=== PATIENT | male | born 1970 | race Caucasian/White ===

== ENCOUNTER 2016-05-03 08:34 | Inpatient (IN) | payer BC ==
[2016-05-03] VITALS (34 sets, daily range): BP systolic 75–213; BP diastolic 41–137; PULSE 96–151; TEMP 36.9; O2SAT 95–100; Ht 175.3 cm; Wt 116.5 kg
[~2016-05-03] VITALS: Ht 175.3 cm; Wt 116.5 kg
[2016-05-03] MEDS ORDERED: MoRPHine SULFATE 10 MG/ML CARP/VIAL IV STA (08:57)
[2016-05-03] MEDS: ONDANSETRON INJ 2 MG/ML 2 ML VIAL IV STA ×2 (08:57→09:18)
[2016-05-03] MEDS ORDERED: SODIUM CHLORIDE 0.9% 1000ML 1,000 ML IV STA (08:57)
--- NOTE | 2016-05-03 09:00 | EMERGENCY ROOM VISIT NOTE ---
History Report prepared by Anamariaibchidi: Sugey Hannon Under the Supervision of: Dr. Daxa Claudio M.D. First contact with patient: 08:51 Chief Complaint: ABDOMINAL PAIN Stated Complaint: SHARP ABDOMINAL PAIN Nursing Triage Summary: Right sided flank/abd pain, started at approx 530 a.m. Denies hx of kidney stones. History of Present Illness The patient is a 46 year old male who presents to the Emergency Room with complaints of persistent right sided abdominal pain that started around 0530 this morning. He is accompanied by his . He states the pain started after he bent down to tie his shoes while he was at work. He describes his pain as feeling "really sharp" and rates it as a 9/10. Movement worsens his discomfort. He reports he slept well last night and denies any testicular pain or hematuria or dysuria. He also denies any melena or hematochezia. The patient still has his appendix and gallbladder and denies any history of kidney stones or hernias. He states his only chronic medical issue is diabetes, for which he takes Metformin. Source of History: patient Onset: 0530 this morning Position: abdomen Symptom Intensity: 9/10 Quality: sharp Timing: other (persistent) Modifying Factors (Worsening): movement Associated Symptoms: No hematochezia, No melena, No urinary symptoms Review of Systems See HPI for pertinent positives & negatives. A total of 10 systems reviewed and were otherwise negative. Past Medical & Surgical Medical Problems: (1) Diabetes mellitus Family History Diabetes mellitus Hypertension Social History Smoking Status: Never Smoker Smokeless Tobacco Use: No Alcohol Use: occasionally Drug Use: none Marital Status: Housing Status: lives with family Occupation Status: employed Current/Historical Medications Scheduled Dulaglutide (Trulicity), 1.5 MG SC WK Glipizide (Glipizide Er), 2 TABS PO BID Metformin HCl (Metformin HCl ER), 1,000 MG PO BID Simvastatin (Zocor), 20 MG PO HS Scheduled PRN Hydrocodone/Acetaminophen 5MG/325MG (Ensign 5MG/325MG), 1-2 TABLET PO Q4H PRN for Pain Allergies Coded Allergies: No Known Allergies (Unverified , 05/03/16) Physical Exam Vital Signs Date Time Temp Pulse Resp B/P Pulse Ox O2 Delivery O2 Flow Rate FiO2 05/03/16 08:37 36.8 106 20 165/97 94 Room Air Physical Exam Vital signs reviewed. General: Well-appearing 46 year old male, in no significant distress. HEENT: No scleral icterus, PERRLA, neck supple. Atraumatic. Cardiovascular: Regular rate and rhythm, no extra sounds. Pulmonary: Clear to auscultation bilaterally, normal work of breathing. Abdomen: Obese abdomen, tender to palpation in RLQ, no rebound or guarding. Musculoskeletal: Atraumatic, no peripheral edema. Neurologic: Patient awake alert and oriented x 3, full strength in all 4 extremities. Cranial nerves 2 through 12 grossly intact. Skin: Warm, dry, no rash Medical Decision & Procedures ER Provider Diagnostic Interpretation: This CT scan was reviewed and interpreted by the radiologist and reviewed by myself. CT SCAN OF THE ABDOMEN AND PELVIS WITHOUT IV CONTRAST IMPRESSION: 1. Findings are consistent with acute appendicitis. There is no intraperitoneal free air or evidence of abscess. 2. Hepatomegaly and severe hepatic steatosis. 3. Nonobstructing right renal calculi. 4. Additional changes as above. Electronically signed by: William Macario M.D. 05/03/2016 9:24 AM Dictated Date/Time: 05/03/2016 9:18 AM Laboratory Results Test 05/03/16 00:00 05/03/16 08:55 Urine Color YELLOW Urine Appearance CLEAR (CLEAR) Urine pH 5.0 (4.5-7.5) Urine Specific [place] 1.020 (1.000-1.030) Urine Protein NEG (NEG) Urine Glucose (UA) NEG (NEG) Urine Ketones NEG (NEG) Urine Occult Blood NEG (NEG) Urine Nitrite NEG (NEG) Urine Bilirubin NEG (NEG) Urine Urobilinogen NEG (NEG) Urine Leukocyte Esterase NEG (NEG) RDW Standard Deviation 41.3 fL (36.4-46.3) RDW Coefficient of Variation 12.8 % (11.5-14.5) White Blood Count 10.85 K/uL (4.8-10.8) Red Blood Count 5.29 M/uL (4.7-6.1) Hemoglobin 16.5 g/dL (14.0-18.0) Hematocrit 47.2 % (42-52) Mean Corpuscular Volume 89.2 fL (80-100) Mean Corpuscular Hemoglobin 31.2 pg (25-34) Mean Corpuscular Hemoglobin Concent 35.0 g/dl (32-36) Platelet Count 233 K/uL (130-400) Mean Platelet Volume 10.9 fL (7.4-10.4) Neutrophils (%) (Auto) 76.3 % Lymphocytes (%) (Auto) 13.1 % Monocytes (%) (Auto) 8.8 % Eosinophils (%) (Auto) 1.0 % Basophils (%) (Auto) 0.5 % Neutrophils # (Auto) 8.29 K/uL (1.4-6.5) Lymphocytes # (Auto) 1.42 K/uL (1.2-3.4) Monocytes # (Auto) 0.95 K/uL (0.11-0.59) Eosinophils # (Auto) 0.11 K/uL (0-0.5) Basophils # (Auto) 0.05 K/uL (0-0.2) Immature Granulocyte % (Auto) 0.3 % Immature Granulocyte # (Auto) 0.03 K/uL (0.00-0.02) Est Creatinine Clear Calc Drug Dose 118.3 ml/min Total Bilirubin 0.6 mg/dl (0.2-1) Direct Bilirubin 0.2 mg/dl (0-0.2) Aspartate Amino Transf (AST/SGOT) 65 U/L (15-37) Alanine Aminotransferase (ALT/SGPT) 110 U/L (12-78) Alkaline Phosphatase 72 U/L (45-117) Total Protein 8.3 gm/dl (6.4-8.2) Albumin 4.6 gm/dl (3.4-5.0) Lipase 167 U/L (73-393) Laboratory results per my review. Medications Administered Medications (Trade) Dose Ordered Sig/Prabhjot Route Start Time Stop Time Status Last Admin Dose Admin Sodium Chloride 1,000 ml @ 999 mls/hr Q1H1M STAT IV 05/03/16 08:57 05/03/16 09:57 DC 05/03/16 08:57 999 MLS/HR Ampicillin Sodium/ Sulbactam Sodium/ Sodium Chloride (Unasyn Inj/Nss 100ml) 108 ml @ 200 mls/hr NOW STAT IV 05/03/16 09:46 05/03/16 10:18 DC 05/03/16 10:07 200 MLS/HR ED Course 0854: Past medical records reviewed. The patient was evaluated in room B10. A complete history and physical examination was performed. 0857: NSS 1000 ml @ 999 mls/hr IV. 0945: I reevaluated the patient. He is resting comfortably. I discussed his test results and my plan for him to be evaluated by a general surgeon, and he verbalized complete understanding and agreement. 0946: I discussed the patients case with Dr. Reynoso, [facility]. The patient will be further evaluated. Medical Decision Etiologies such as appendicitis, diverticulitis, PUD, biliary pathology, UTI, pancreatitis, obstruction, mesenteric ischemia, aortic pathology, infections, inflammatory bowel disease, renal colic, as well as others were entertained. This patient was evaluated and appeared to be in some discomfort. IV access was obtained and laboratory work was drawn. Patient was hydrated with normal saline solution, he denied the need for any pain medication. CT scan abdomen and pelvis was performed and reveals evidence of acute appendicitis. Patient was informed of the findings. Dr. Reynoso of general surgery was consulted. He has recommended medicating the patient with IV Unasyn. The patient was made aware of the plan and agrees. He will be evaluated by general surgery for definitive management. Consults Time Called: [phone] Consulting Physician: Dr. Reynoso, [facility] Returned Call: [phone] I discussed the patients case with Dr. Reynoso, [facility]. The patient will be further evaluated. Impression Primary Impression: Appendicitis Scribe Attestation The scribe's documentation has been prepared under my direction and personally reviewed by me in its entirety. I confirm that the note above accurately reflects all work, treatment, procedures, and medical decision making performed by me. Departure Information Dispostion Being Evaluated By Surgeon Prescriptions Hydrocodone/Acetaminophen 5MG/325MG (Ensign 5MG/325MG) Tab 1-2 TABLET PO Q4H Y for Pain, #30 TAB Prov: Driss Pisano JR.,PA-C 05/03/16 Referrals Beka Miguel M.D. (PCP) Patient Instructions A Signature Page
[2016-05-03 09:19] LABS: BASO % 0.5 %; BASO ABS # 0.05 K/uL (0-0.2); COMPLETE YES; HEMATOCRIT 47.2 % (42-52); IG% 0.3 %; LYMPH % 13.1 %; LYMPH ABS # 1.42 K/uL (1.2-3.4); MEAN CELL VOLUME 89.2 fL (80-100); MEAN CORPUSCULAR HEMOGLOBIN 31.2 pg (25-34); MEAN PLATELET VOLUME 10.9 fL (7.4-10.4); MONO % 8.8 %; NEUT % 76.3 %; PLATELET COUNT 233 K/uL (130-400); RED BLOOD COUNT 5.29 M/uL (4.7-6.1); WHITE BLOOD COUNT 10.85 K/uL (4.8-10.8)
--- NOTE | 2016-05-03 09:25 | DIAGNOSTIC IMAGING REPORT ---
CT SCAN OF THE ABDOMEN AND PELVIS WITHOUT IV CONTRAST CLINICAL HISTORY: Right lower quadrant abdominal pain. COMPARISON STUDY: No priors. TECHNIQUE: CT scan of the abdomen and pelvis is performed from the lung bases to the proximal femora. Images are reviewed in the axial, sagittal, and coronal planes. IV contrast was not administered for this examination as per the referring clinician. Automated dose control exposure was utilized. CT DOSE: 1129.23 mGycm FINDINGS: Lung bases: The heart is normal in size and without pericardial effusion. The lung bases are clear. There is a tiny hiatal hernia. Liver: The unenhanced liver is enlarged, measuring 23 cm in length. The liver demonstrates diffusely diminished attenuation consistent with hepatic steatosis. Fatty sparing is seen adjacent to the gallbladder fossa. There is no intrahepatic biliary ductal dilatation. Gallbladder: Unremarkable. Spleen: Normal in size and attenuation. Pancreas: Unremarkable. Adrenal glands: Unremarkable. Kidneys: The unenhanced kidneys are normal in size and without hydronephrosis. There are least 2 nonobstructing right renal calculi measuring up to 5 mm. No left renal calculi are identified. Subcentimeter cortical hypodensities likely represent cysts but are too small for definitive characterization. Abdominal vasculature: The abdominal aorta is normal in course and caliber. Bowel: The small bowel and colon are normal in course and caliber. The appendix is thick-walled and distended, measuring up to 10 mm in diameter as seen on axial image #355. There is periappendiceal inflammatory stranding and a calcified appendicolith is noted. The appearance is consistent with acute appendicitis. There is no evidence of abscess. Peritoneum: There is no intraperitoneal free air or abdominal ascites. There is a small fat-containing umbilical hernia. Lymphadenopathy: None. Pelvic viscera: The bladder, prostate, and seminal vesicles are normal as visualized. Skeletal structures: There is mild lumbosacral spondylosis. Posterior disc osteophyte complexes at L3-L4, L4-L5, and L5-S1 likely contribute to acquired compromise of the central canal. No lytic or blastic lesions are seen. IMPRESSION: 1. Findings are consistent with acute appendicitis. There is no intraperitoneal free air or evidence of abscess. 2. Hepatomegaly and severe hepatic steatosis. 3. Nonobstructing right renal calculi. 4. Additional changes as above. Electronically signed by: William Macario M.D. 05/03/2016 9:24 AM Dictated Date/Time: 05/03/2016 9:18 AM
[2016-05-03 09:38] LABS: BUN/CREATININE RATIO 16.5 (10-20); CALCIUM 9.4 mg/dl (8.5-10.1)
[2016-05-03] MEDS ORDERED: AMPICILLIN/SULBACTAM SOD INJ 3,000 MG in SODIUM CHLORIDE 0.9% 100ML 100 ML IV STA (09:46)
[2016-05-03] MEDS ORDERED: LACTATED RINGER'S 1000ML 1,000 ML IV SCH (09:58)
[2016-05-03] MEDS ORDERED: MoRPHine SULFATE 4 MG/ML 1 ML CARP\\VIAL IV PRN (10:00)
[2016-05-03] MEDS ORDERED: GLUCOSE 40% GEL 15 GM TUBE PO PRN (10:00)
[2016-05-03] MEDS ORDERED: ONDANSETRON INJ 2 MG/ML 2 ML VIAL IV PRN ×3 (10:00→18:00)
[2016-05-03] MEDS ORDERED: GLUCOSE 10 TABS/TUBE PO PRN (10:00)
[2016-05-03] MEDS ORDERED: GLUCAGON FOR INJ 1 MG VIAL SQ PRN (10:00)
[2016-05-03] MEDS ORDERED: SIMV20TA2 PO ×2 (10:09)
[2016-05-03] MEDS ORDERED: METF-841 PO ×2 (10:09)
[2016-05-03] MEDS ORDERED: GLIP-197 PO ×2 (10:09)
[2016-05-03] MEDS ORDERED: DULA0.5I SC ×2 (10:09)
--- NOTE | 2016-05-03 10:19 | History and Physical ---
History & Physical Date & Time of Service: May 03, 2016 at 10:14 Chief Complaint: Sharp Abdominal Pain Primary Care Physician: Beka Miguel M.D. History of Present Illness 46 y/o male with RLQ pain that began this morning about 5 hours ago. [place] sharp pain, 9/10 that continued while at work and he came to the ED. No N/V or F/C. [place] fine last night. no previous abdominal surgery. Family History Diabetes mellitus Hypertension Social History Smoking Status: Never Smoker Smokeless Tobacco Use: No Drug Use: none Marital Status: Occupational Status: employed Multi-Drug Resistant Organisms History of MDRO: No Allergies Coded Allergies: No Known Allergies (Unverified , 05/03/16) Home Medications Scheduled Dulaglutide (Trulicity), 1.5 MG SC WK Glipizide (Glipizide Er), 2 TABS PO BID Metformin HCl (Metformin HCl ER), 1,000 MG PO BID Simvastatin (Zocor), 20 MG PO HS Review of Systems Constitutional: No chills, No fever Respiratory: No cough, No shortness of breath Cardiovascular: No chest pain Abdomen: + pain, No nausea, No vomiting Physical Exam Vital Signs Date Time Temp Pulse Resp B/P Pulse Ox O2 Delivery O2 Flow Rate FiO2 05/03/16 10:10 102 18 158/84 96 Room Air 05/03/16 08:37 36.8 106 20 165/97 94 Room Air General Appearance: WD/WN, no apparent distress Neck: supple Respiratory/Chest: lungs clear, normal breath sounds Cardiovascular: regular rate, rhythm, no edema Abdomen/GI: soft, + tenderness (RLQ, no guarding or rebound) Neurologic/Psych: alert, normal mood/affect Skin: normal color, warm/dry Diagnostics Laboratory Results Results Past 24 Hours Test 05/03/16 08:55 Range/Units White Blood Count 10.85 4.8-10.8 K/uL Red Blood Count 5.29 4.7-6.1 M/uL Hemoglobin 16.5 14.0-18.0 g/dL Hematocrit 47.2 42-52 % Mean Corpuscular Volume 89.2 80-100 fL Mean Corpuscular Hemoglobin 31.2 25-34 pg Mean Corpuscular Hemoglobin Concent 35.0 32-36 g/dl Platelet Count 233 130-400 K/uL Mean Platelet Volume 10.9 7.4-10.4 fL Neutrophils (%) (Auto) 76.3 % Lymphocytes (%) (Auto) 13.1 % Monocytes (%) (Auto) 8.8 % Eosinophils (%) (Auto) 1.0 % Basophils (%) (Auto) 0.5 % Neutrophils # (Auto) 8.29 1.4-6.5 K/uL Lymphocytes # (Auto) 1.42 1.2-3.4 K/uL Monocytes # (Auto) 0.95 0.11-0.59 K/uL Eosinophils # (Auto) 0.11 0-0.5 K/uL Basophils # (Auto) 0.05 0-0.2 K/uL RDW Standard Deviation 41.3 36.4-46.3 fL RDW Coefficient of Variation 12.8 11.5-14.5 % Immature Granulocyte % (Auto) 0.3 % Immature Granulocyte # (Auto) 0.03 0.00-0.02 K/uL Sodium Level 139 136-145 mmol/L Potassium Level 4.0 3.5-5.1 mmol/L Chloride Level 103 98-107 mmol/L Carbon Dioxide Level 28 21-32 mmol/L Anion Gap 8.0 3-11 mmol/L Blood Urea Nitrogen 17 7-18 mg/dl Creatinine 1.00 0.60-1.40 mg/dl Est Creatinine Clear Calc Drug Dose 118.3 ml/min Estimated GFR () 103.4 Estimated GFR (Non- 89.2 BUN/Creatinine Ratio 16.5 10-20 Random Glucose 215 70-99 mg/dl Calcium Level 9.4 8.5-10.1 mg/dl Total Bilirubin 0.6 0.2-1 mg/dl Direct Bilirubin 0.2 0-0.2 mg/dl Aspartate Amino Transf (AST/SGOT) 65 15-37 U/L Alanine Aminotransferase (ALT/SGPT) 110 12-78 U/L Alkaline Phosphatase 72 45-117 U/L Total Protein 8.3 6.4-8.2 gm/dl Albumin 4.6 3.4-5.0 gm/dl Lipase 167 73-393 U/L Diagnostic Radiology CT SCAN OF THE ABDOMEN AND PELVIS WITHOUT IV CONTRAST CLINICAL HISTORY: Right lower quadrant abdominal pain. COMPARISON STUDY: No priors. TECHNIQUE: CT scan of the abdomen and pelvis is performed from the lung bases to the proximal femora. Images are reviewed in the axial, sagittal, and coronal planes. IV contrast was not administered for this examination as per the referring clinician. Automated dose control exposure was utilized. CT DOSE: 1129.23 mGycm FINDINGS: Lung bases: The heart is normal in size and without pericardial effusion. The lung bases are clear. There is a tiny hiatal hernia. Liver: The unenhanced liver is enlarged, measuring 23 cm in length. The liver demonstrates diffusely diminished attenuation consistent with hepatic steatosis. Fatty sparing is seen adjacent to the gallbladder fossa. There is no intrahepatic biliary ductal dilatation. Gallbladder: Unremarkable. Spleen: Normal in size and attenuation. Pancreas: Unremarkable. Adrenal glands: Unremarkable. Kidneys: The unenhanced kidneys are normal in size and without hydronephrosis. There are least 2 nonobstructing right renal calculi measuring up to 5 mm. No left renal calculi are identified. Subcentimeter cortical hypodensities likely represent cysts but are too small for definitive characterization. Abdominal vasculature: The abdominal aorta is normal in course and caliber. Bowel: The small bowel and colon are normal in course and caliber. The appendix is thick-walled and distended, measuring up to 10 mm in diameter as seen on axial image #355. There is periappendiceal inflammatory stranding and a calcified appendicolith is noted. The appearance is consistent with acute appendicitis. There is no evidence of abscess. Peritoneum: There is no intraperitoneal free air or abdominal ascites. There is a small fat-containing umbilical hernia. Lymphadenopathy: None. Pelvic viscera: The bladder, prostate, and seminal vesicles are normal as visualized. Skeletal structures: There is mild lumbosacral spondylosis. Posterior disc osteophyte complexes at L3-L4, L4-L5, and L5-S1 likely contribute to acquired compromise of the central canal. No lytic or blastic lesions are seen. IMPRESSION: 1. Findings are consistent with acute appendicitis. There is no intraperitoneal free air or evidence of abscess. 2. Hepatomegaly and severe hepatic steatosis. 3. Nonobstructing right renal calculi. 4. Additional changes as above. Electronically signed by: William Macario M.D. 05/03/2016 9:24 AM Dictated Date/Time: 05/03/2016 9:18 AM Impression Assessment and Plan Acute appendicitis Will plan for laparoscopic appendectomy this afternoon by Dr. Reynoso. Preop Unasyn, SCDs. VTE Prophylaxis VTE Risk Assessment Done? Y/N: Yes Risk Level: Low
[2016-05-03] MEDS ORDERED: INSULIN ASPART 100 UNITS/ML 3 ML PEN SC SCH (11:00)
[2016-05-03] MEDS ORDERED: IV FLUIDS COMPLETED PRN (11:00)
[2016-05-03 13:08] LABS: URINE APPEARANCE CLEAR (CLEAR); URINE BILIRUBIN NEG (NEG); URINE COLOR YELLOW; URINE NITRITE NEG (NEG); UROBILINOGEN NEG (NEG); ZZUR CULT IF INDIC CLEAN CATCH NO
[2016-05-03 13:12] LABS: MANUAL MICROSCOPIC REQUIRED? NO; REVIEW REQ? NO
[2016-05-03] MEDS ORDERED: NEOSTIGMINE METHYLSULFATE 5 MG/5 ML SYR ONE (13:18)
[2016-05-03] MEDS ORDERED: ONDANSETRON INJ 2 MG/ML 2 ML VIAL ONE ×2 (13:18→14:26)
[2016-05-03] MEDS ORDERED: GLYCOPYRROLATE INJ 0.2 MG/ML VIAL ONE ×3 (13:18→14:26)
[2016-05-03] MEDS ORDERED: LIDOCAINE HCL 2% 2 ML VIAL (20MG/ML) ONE (13:18)
[2016-05-03] MEDS ORDERED: DEXAMETHASONE SOD INJ 4 MG/ML VIAL ONE (13:18)
[2016-05-03] MEDS ORDERED: ROCURONIUM BROMIDE 10 MG/ML 5 ML VIAL ONE (13:18)
[2016-05-03] MEDS ORDERED: PROPOFOL IV EMULSION 10 MG/ML 20 ML VIAL IV ONE (13:18)
[2016-05-03] MEDS ORDERED: FENTANYL CITRATE INJ 50 MCG/1 ML 2 ML VIAL ONE ×3 (13:19→17:11)
[2016-05-03] MEDS ORDERED: MIDAZOLAM HCL 1 MG/ML 2ML VIAL ONE ×3 (13:19→18:49)
[2016-05-03] MEDS ORDERED: HYDR-5688 PO ×2 (13:28)
[2016-05-03] MEDS ORDERED: LACTATED RINGER'S 1000ML 1,000 ML IV PRN (13:29)
[2016-05-03] MEDS ORDERED: FENTANYL CITRATE INJ 50 MCG/1 ML 2 ML VIAL IV PRN (13:30)
[2016-05-03] MEDS ORDERED: MoRPHine SULFATE 10 MG/ML CARP/VIAL IV PRN (13:30)
[2016-05-03] MEDS ORDERED: KETOROLAC TROMETHAMINE 30 MG/ML VIAL ONE (14:33)
[2016-05-03] MEDS ORDERED: BUPIVACAINE/EPINEPHRINE 0.5% MPF 1:200,000 30 ML VIAL INJ ONE (14:37)
[2016-05-03] MEDS ORDERED: HYDROCODONE/ACETAMOPHEN 5/325MG TAB PO PRN ×2 (14:45)
--- NOTE | 2016-05-03 14:55 | Discharge Instructions ---
Discharge Instructions Admission Reason for Admission: Appendicitis Discharge Discharge Diagnosis / Problem: Laparoscopic appendectomy Discharge Goals Goal(s): Decrease discomfort Activity Recommendations Activity Limitations: per Instructions/Follow-up section Lifting Limitations: no more than 10 pounds Shower/Bathe: no limitations Driving or Machine Use: resume 3 days after discharge . Instructions / Follow-Up Instructions / Follow-Up Dr. Reynoso office in 2 weeks, call [phone] to schedule, [facility] Current [facility] Diet Patient's current hospital diet: Clear Liquid Diet Discharge Diet Recommended Diet: Regular Diet Procedures Procedures Performed: Laparoscopic Appendectomy Pending Studies Studies pending at discharge: no Medical Emergencies . Who to Call and When: Medical Emergencies: If at any time you feel your situation is an emergency, please call 911 immediately. . Non-Emergent Contact Non-Emergency issues call your: Surgeon Call Non-Emergent contact if: you have a fever, temperature is above 101.5, your pain is not controlled, wound has increased drainage, wound has increased redness, wound has increased pain . "Provider Documentation" section prepared by Driss Pisano. VTE Core Measure Inpt VTE Proph given/why not?: SCD's
--- NOTE | 2016-05-03 14:56 | [facility] Operative Report ---
Operative Report Operative Date May 03, 2016. Pre-Operative Diagnosis acute appendicitis Post-Operative Diagnosis appendicitis Surgeon Dr. Carlos Reynoso Presentation Team Member Surgeon(s) Roberto Carlos Pisano PA-C Estimated Blood Loss 20ml Findings acutely inflammed appendix...nonperforated. Specimens A. appendix Anesthesia GET Complication(s) None Disposition Recovery Room / PACU I attest to the content of the Intraoperative Record and any orders documented therein. Any exceptions are noted below.
[2016-05-03] MEDS: LACTATED RINGER'S 1000ML 1,000 ML IV SCH ×2 (15:00→23:03)
--- NOTE | 2016-05-03 15:09 | OPERATIVE REPORT ---
DATE OF OPERATION: 05/03/2016 PREOPERATIVE DIAGNOSIS: Acute appendicitis. POSTOPERATIVE DIAGNOSIS: Same. PROCEDURE: Laparoscopic appendectomy. SURGEON: Dr. Reynoso. APPEALS WRITER: Priyank Pisano PA-C. ESTIMATED BLOOD LOSS: 25 mL. COMPLICATIONS: No immediate. ANESTHESIA: General. The patient tolerated the procedure well. OPERATION AND FINDINGS: OPERATIVE NOTE: After informed consent was obtained, the patient was taken to the operating suite and placed in supine position. After successful intubation, the left arm was tucked. A Conroy catheter was placed and the lower abdomen was shaved and sterilely prepped and draped in usual fashion. A periumbilical incision was made with an 11 blade scalpel and carried down through the soft tissue using electrocautery. The anterior rectus fascia was opened using electrocautery and two #0 Vicryl stay sutures were placed. Peritoneum was entered using blunt finger penetration and a finger sweep was performed to take down adhesions. A 12 mm Anabel trocar was placed and the abdomen was insufflated to 20 mmHg. Laparoscope was inserted and the abdomen examined 360 degrees. A suprapubic 5 mm port and left lower quadrant 12 mm port were placed under direct vision. The patient was then placed in a Trendelenburg position slightly airplaned to the left. We began by inspecting the right lower quadrant. We immediately found an acutely inflamed appendix. It was not perforated. There was no abscess or no free fluid. We were able to gently manipulate away from surrounding tissue. I was able to make a window in the mesoappendix and use a AYUSH purple cartridge stapler to transect the appendix at its base with the cecum. We used the same technique to transect the mesoappendix. It was then placed into an EndoCatch bag and removed from the camera port site. Irrigation of the pelvis and right lower quadrant was performed. There was adequate hemostasis at the end of the procedure. We did run the terminal ileum backwards for about 3-4 feet. There was no evidence of inflammatory bowel or Meckel's diverticulum. The remainder of his anatomy all appeared normal. The trocars were subsequently all removed and the abdomen desufflated. The fascia of the camera port was closed using 0 Vicryl in a [id number] fashion. A left lower quadrant 12 mm port site was also closed using 0 Vicryl. The wounds were all irrigated and closed using 4-0 Monocryl. Marcaine was injected around them for postoperative analgesia and skin glue used as a dressing. The patient was awakened, extubated, and transferred to recovery in stable condition. I attest to the content of the Intraoperative Record and any orders documented therein. Any exceptio ns are noted below.
[2016-05-03] MEDS ORDERED: PHENYLEPHRINE 100MCG/ML 5ML SYR ONE ×3 (15:11→16:24)
[2016-05-03] MEDS ORDERED: EpHEDrine SULFATE INJ 50 MG/ML AMP ONE (15:11)
[2016-05-03] MEDS ORDERED: PHENYLEPHRINE HCL INJ 20 MG in DEXTROSE 5% 500ML 500 ML IV PRN ×2 (16:00→20:02)
[2016-05-03] MEDS ORDERED: NURSING VERBAL MED ORDER ONE ×2 (16:00→22:00)
[2016-05-03] MEDS: AMPICILLIN/SULBACTAM SOD INJ 1,500 MG in SODIUM CHLORIDE 0.9% 100ML 100 ML IV SCH ×2 (16:00→23:06)
--- NOTE | 2016-05-03 16:01 | DIAGNOSTIC IMAGING REPORT ---
SINGLE VIEW CHEST CLINICAL HISTORY: Dyspnea. Appendicitis. FINDINGS: An AP, portable, upright chest radiograph is obtained. No prior studies are available for comparison at the time of dictation. The examination is degraded by portable technique, large body habitus, and patient rotation. The cardiomediastinal silhouette is normal for projection. There are low lung volumes and bibasilar atelectasis. The lungs are otherwise clear. No large pleural effusion or pneumothorax is seen. The bony thorax is grossly intact. IMPRESSION: Low lung volumes and bibasilar atelectasis. Electronically signed by: William Macario M.D. 05/03/2016 3:59 PM Dictated Date/Time: 05/03/2016 3:59 PM
[2016-05-03] MEDS ORDERED: NOREPINEPHRINE BIT INJ 8 MG in DEXTROSE 5% 500ML 500 ML IV PRN ×2 (16:30→20:02)
[2016-05-03 16:50] LABS: HEMATOCRIT 29.6 % (42-52); MEAN CELL VOLUME 90.5 fL (80-100); MEAN CORPUSCULAR HEMOGLOBIN 30.9 pg (25-34); MEAN CORPUSCULAR HGB CONC 34.1 g/dl (32-36); MEAN PLATELET VOLUME 10.7 fL (7.4-10.4); PLATELET COUNT 233 K/uL (130-400); RED BLOOD COUNT 3.27 M/uL (4.7-6.1)
[2016-05-03 17:08] LABS: BUN/CREATININE RATIO 11.1 (10-20); CKMB/CK RATIO 0.6 (0-3.0); CREATININE 1.4 mg/dl (0.60-1.40); POTASSIUM 4.5 mmol/L (3.5-5.1)
[2016-05-03] MEDS ORDERED: NovoLIN-R INSULIN PER UNIT CHARGE ONE (17:13)
--- NOTE | 2016-05-03 17:14 | History & Physical Bridge Note ---
H&P Re-Evaluation Bridge Note: Pt post op in PACU became hypotensive....? etiology. US showed moderate amount of free fluid and Hg dropped from a preop of 16 to 10. Pt pressures up on pressors now. pt conversing. denied abdominal pain. Suspect port site or staple line bleed. discussed options with family. will take back to OR for laparoscopy. discussed risks/options. answered questions. OK to proceed.
[2016-05-03 17:24] LABS: BETA-HYDROXYBUTYRATE 5.01 mg/dL (0.2-2.81)
[2016-05-03] MEDS ORDERED: SODIUM CHLORIDE 0.9% IV SCH (17:30)
[2016-05-03] MEDS ORDERED: DESMOPRESSIN ACETATE IV SCH (17:30)
--- NOTE | 2016-05-03 17:32 | DIAGNOSTIC IMAGING REPORT ---
CHEST ONE VIEW PORTABLE CLINICAL HISTORY: Status post central line placement. COMPARISON STUDY: Chest radiograph May 03, 2016 at 3:40 PM FINDINGS: There has been interval placement of a right internal jugular central line. The catheter tip projects over the right brachiocephalic vein. There is no pneumothorax. Linear left lower lung opacity is suggestive of atelectasis. There is no evidence of pulmonary edema. Cardiac size is normal. IMPRESSION: No pneumothorax following placement of a right internal jugular central line. Catheter tip projects over the right brachiocephalic vein. Electronically signed by: Denton Matias M.D. 05/03/2016 5:30 PM Dictated Date/Time: 05/03/2016 5:28 PM
[2016-05-03 17:44] LABS: CALCIUM 7.9 mg/dl (8.5-10.1)
[2016-05-03] MEDS ORDERED: DESMOPRESSIN ACETATE IV ONE (17:45)
[2016-05-03] MEDS ORDERED: SODIUM CHLORIDE 0.9% IV ONE (17:45)
[2016-05-03] MEDS ORDERED: TRANEXAMIC ACID INJ 1,000 MG in SODIUM CHLORIDE 0.9% 100ML 100 ML IV ONE (17:45)
[2016-05-03] MEDS ORDERED: EpHEDrine SULFATE INJ 50 MG/ML AMP IV PRN (18:00)
[2016-05-03] MEDS ORDERED: ATROPINE SULFATE 0.1 MG/ML 5ML SYR IV PRN (18:00)
[2016-05-03] MEDS ORDERED: HYDROmorphone INJ 2 MG/ML SYR/VIAL IV PRN (18:00)
[2016-05-03] MEDS ORDERED: PHENYLEPHRINE 100MCG/ML 5ML SYR IV PRN (18:00)
[2016-05-03] MEDS ORDERED: ESMOLOL HCL 10 MG/ML 10 ML VIAL ONE (18:54)
[2016-05-03] MEDS ORDERED: ETOMIDATE 2 MG/ML 20 ML VIAL IV ONE (18:54)
[2016-05-03] MEDS ORDERED: SUCCINYLCHOLINE CHLORIDE 20 MG/ML 10 ML VIAL IV ONE (18:54)
[2016-05-03] MEDS ORDERED: MIDAZOLAM HCL 5 MG/ML 1 ML VIAL IV STA (19:09)
--- NOTE | 2016-05-03 19:32 | Anesthesiology Progress Note ---
Anesthesia Post Op Note Date & Time May 03, 2016 at 18:59 Vital Signs Pain Intensity: 3 Vital Signs Past 12 Hours Date Time Temp Pulse Resp B/P Pulse Ox O2 Delivery O2 Flow Rate FiO2 05/03/16 17:20 130 22 100 Mask 10 110/41 05/03/16 17:16 130 22 85/73 100 Mask 10 05/03/16 17:08 124 22 97/48 100 Mask 10 05/03/16 17:06 120 22 88/58 100 Mask 10 05/03/16 17:04 120 22 108/49 100 Mask 10 05/03/16 17:00 122 22 97/58 100 Mask 10 05/03/16 16:55 120 22 92/68 100 Mask 10 05/03/16 16:50 98 22 123/95 100 Mask 10 05/03/16 16:45 104 22 132/74 100 Mask 10 05/03/16 16:40 110 22 101/75 100 Mask 10 05/03/16 16:35 133 22 79/53 100 Mask 10 05/03/16 16:29 129 22 79/50 100 Mask 10 05/03/16 16:25 124 22 74/50 100 Mask 10 05/03/16 16:21 115 22 55/37 100 Mask 10 05/03/16 16:19 117 20 70/47 100 Mask 10 05/03/16 16:15 120 20 81/60 100 Mask 10 05/03/16 16:10 109 20 65/52 100 Mask 10 05/03/16 16:05 101 16 99/69 100 Mask 10 05/03/16 16:00 105 16 98/60 100 Mask 10 05/03/16 15:48 102 16 78/50 100 Mask 10 05/03/16 15:40 100 16 54/41 100 Mask 10 05/03/16 15:33 105 16 80/50 100 Mask 10 05/03/16 15:30 95 16 87/48 100 Mask 10 05/03/16 15:25 97 16 65/42 100 Mask 10 05/03/16 15:20 100 16 108/54 100 Mask 10 05/03/16 15:15 93 16 74/47 100 Mask 10 05/03/16 15:12 93 16 70/48 100 Mask 10 05/03/16 15:10 100 16 69/48 98 Mask 10 05/03/16 15:05 106 16 143/54 97 Mask 10 05/03/16 14:55 99 16 145/81 97 Mask 10 05/03/16 14:45 36.5 98 16 178/85 95 Mask 10 05/03/16 11:30 Room Air 05/03/16 11:26 36.9 105 18 159/82 95 Room Air 05/03/16 10:10 102 18 158/84 96 Room Air 05/03/16 08:37 36.8 106 20 165/97 94 Room Air Notes Nausea / Vomiting: adequately controlled Airway Patency, RR, SpO2: stable & adequate The patient was in the PACU recovering from a lap appendectomy. I walked into the PACU and sat at a computer to sign some patients out when this patient's monitor began to alarm. I overheard the nurse, Carlos tell another nurse that his blood pressure was low and I walked over to the patient and noticed that his pressure was in the 70s systolic. I Instructed Carlos to give 200 mcg of phenylephrine which brought his pressure into the 80s. The patient complained of having "cold flashes" and trouble breathing. His breath sounds were normal and his sp02 was 100% on simple mask.We continued to struggle with his blood pressure and placed him on a phenylephrine drip. I ordered a CBC, PRP, CXR, EKG and cardiac enzymes. His H&H was 10.1/ 29.8. His EKG was sinus tachycardia, rate 102. His CXR was read as bibasilar atalectasis. His FBG was 328 for which he was given 6 units of regular insulin IV. The rest of his labs were uneventful. His abdominal exam was obese, soft, mild tenderness in the right lower quadrant with significant tenderness in the left lower quadrant. I felt that the surgeon should examine him so I went into his O.R. and told him what happening. He said he would be out in a few minutes to examine him which he was. In the meantime the patient became more and more difficult to manage with a heart rate in the 130s and I started to prepare to place an A-line.We asked for help from the ICU and Dr. Garcia and William Pop came promptly to help. We placed a femoral A-line and Dr. Garcia placed a central line. A levophed drip was started and an ultrasound of the abdomen was performed by Dr. Garcia. It was suspicious for a large amount of fluid in the abdomen and this was confirmed by a radiologist. Dr Reynoso came back to the PACU and we told him we felt the patient needed to go back to the O.R. right away. The patient was given 6 units of packed red cells intraoperatively and was taken to the ICU intubated and left on the ventilator at least overnight. He was tachycardic with rate in the high 120s to low 130s. he was given 2 units of FFP and platelets were ordered. His blood pressure was approximately 90/60 on a low dose phenylephrine drip. When I checked on him at 2300 his rate was 104. When I checked on him the next morning he was still on a phenylephrine drip but was a lot more stable. The plan was to extubate him later in the day.
--- NOTE | 2016-05-03 19:35 | [facility] Operative Report ---
Operative Report Operative Date May 03, 2016. Pre-Operative Diagnosis Hypotension Post-Operative Diagnosis port site bleeding Procedure(s) Performed diagnostic laparoscopy; oversew of port site bleeding. abdominal washout Surgeon Dr. Reynoso Tariff Counsel Surgeon(s) Driss Pisano PA-C; Dr. Burnette Estimated Blood Loss 3,500ml Findings pulsating LLQ port site vessel; intrabdominal clots Specimens None Anesthesia GET Disposition Surgical ICU I attest to the content of the Intraoperative Record and any orders documented therein. Any exceptions are noted below.
[2016-05-03] MEDS ORDERED: [UNRECOGNIZED DRUG - OTHER] IV STA (19:41)
[2016-05-03] MEDS ORDERED: DRIP IV STA (19:41)
[2016-05-03] MEDS ORDERED: SODIUM CHLORIDE 0.9% IV PRN (19:45)
[2016-05-03] MEDS ORDERED: ROCURONIUM BROMIDE IV PRN (19:45)
[2016-05-03] MEDS ORDERED: SODIUM BICARB 8.4% INJ 50 MEQ/50 ML SYR IV ONE ×2 (20:00→20:22)
[2016-05-03] MEDS ORDERED: ROCURONIUM BROMIDE IV ONE (20:00)
[2016-05-03] MEDS ORDERED: SODIUM CHLORIDE 0.9% 10ML FLUSH IV ONE (20:00)
[2016-05-03 20:22] LABS: ISTAT ARTERIAL BLOOD GAS HCO3 20 meq/L (19-24); ISTAT ARTERIAL BLOOD GAS PCO2 57 mmHg (35-46); ISTAT ARTERIAL BLOOD GAS PO2 154 mmHg (80-95); ISTAT ARTERIAL BLOOD GAS pH 7.16 (7.35-7.45); ISTAT CARBON DIOXIDE 22 mEq/l (24-31); ISTAT HEMATOCRIT 36 % (42-52); ISTAT HEMOGLOBIN 12.2 g/dl (14.0-18.0); ISTAT SODIUM 135 mEq/L (135-144)
[2016-05-03] MEDS ORDERED: SODIUM BICARB 8.4% INJ 50 MEQ/50 ML SYR IV STA (20:22)
[2016-05-03] MEDS ORDERED: SODIUM BICARB 8.4% INJ 50 MEQ/50 ML SYR - CCU EMERGENCY DRUG IV ONE (20:25)
--- NOTE | 2016-05-03 20:44 | DIAGNOSTIC IMAGING REPORT ---
CHEST ONE VIEW PORTABLE CLINICAL HISTORY: Hypotension. Evaluate for aspiration. COMPARISON STUDY: Chest radiograph May 03, 2016 at 5:24 PM. FINDINGS: The tip of the endotracheal tube is 2.5 cm above the anali. A right internal jugular central line remains in place. There is no pneumothorax. Lung volumes are diminished. Bibasilar opacities have developed. There is no evidence of pulmonary edema. IMPRESSION: 1. Interval development of bibasilar opacities with possible air bronchograms. This could reflect consolidation or atelectasis. These findings could be seen in the setting of aspiration. 2. Satisfactory positioning of the endotracheal tube. No pneumothorax. 3. Diminished lung volumes. Electronically signed by: Denton Matias M.D. 05/03/2016 8:43 PM Dictated Date/Time: 05/03/2016 8:40 PM
[2016-05-03 20:51] LABS: INR 1.2 (0.9-1.1); PROTHROMBIN TIME (PATIENT) 12.4 SECONDS (9.0-12.0)
[2016-05-03 21:16] LABS: HEMATOCRIT 38.3 % (42-52); MEAN CELL VOLUME 86.5 fL (80-100); MEAN CORPUSCULAR HEMOGLOBIN 29.8 pg (25-34); MEAN CORPUSCULAR HGB CONC 34.5 g/dl (32-36); MEAN PLATELET VOLUME 10.7 fL (7.4-10.4); PLATELET COUNT 137 K/uL (130-400); RED BLOOD COUNT 4.43 M/uL (4.7-6.1); WHITE BLOOD COUNT 16.15 K/uL (4.8-10.8)
[2016-05-03 21:25] LABS: ALB/GLOB RATIO 1.2 (0.9-2); BUN/CREATININE RATIO 10.4 (10-20); CALCIUM 6.9 mg/dl (8.5-10.1); CREATININE 1.6 mg/dl (0.60-1.40); POTASSIUM 5.2 mmol/L (3.5-5.1)
[2016-05-03] MEDS: INSULIN IV INFUSION PROTOCOL SCH ×3 (21:48→23:03)
[2016-05-03] MEDS ORDERED: SEVERE STRESS LEVEL SCH (22:00)
[2016-05-03] MEDS ORDERED: INSULIN PROTOCOL GOAL RANGE SCH (22:00)
[2016-05-03 22:14] LABS: BETA-HYDROXYBUTYRATE 3.43 mg/dL (0.2-2.81)
[2016-05-03] MEDS ORDERED: INSULIN HUMAN REGULAR IV BOLUS 4.5 UNIT in SYRINGE 0 ML IV SCH (22:30)
[2016-05-03 22:48] LABS: ISTAT ARTERIAL BLOOD GAS HCO3 23 meq/L (19-24); ISTAT ARTERIAL BLOOD GAS PCO2 47 mmHg (35-46); ISTAT ARTERIAL BLOOD GAS PO2 192 mmHg (80-95); ISTAT CARBON DIOXIDE 25 mEq/l (24-31); ISTAT DELIVERY SYSTEM Ventilator; ISTAT FIO2 100 %; ISTAT PEEP 5; ISTAT RATE 30; ISTAT SITE Art Line; VE 15; Vt 550
[2016-05-03] MEDS: INSULIN REGULAR 250 UNITS in SODIUM CHLORIDE 0.9% 250ML 250 ML IV SCH (22:58)
--- NOTE | 2016-05-03 23:25 | Critical Care Consultation ---
Critical Care Consultation Date of Consultation: May 03, 2016. Attending Physician: Alon Reynoso D.O. Reason for Consultation: Post operative management History of Present Illness Patient is a 46-year-old male who underwent a urgent laparoscopic appendectomy. He has a significant past medical history for diabetes mellitus. I was called to the PACU regarding hypotension and tachycardia. A limited bedside ultrasound demonstrated a large fluid accumulation in the hepatic renal recess concerning for hematoma. Dr. Reynoso the surgeon evaluated the patient at the bedside, a large bore central venous access was placed in the right IJ, a right arterial femoral line was placed for hemodynamic monitoring. And the patient was taken back to the OR emergently. While in the PACU patient received multiple units of packed red blood cells and the resuscitation continued into the operating room. Family History Diabetes mellitus Hypertension Social History Smoking Status: Never Smoker Smokeless Tobacco Use: No Drug Use: none Marital Status: Housing Status: lives with family Occupation Status: employed Allergies Coded Allergies: No Known Allergies (Unverified , 05/03/16) Home Medications Scheduled Dulaglutide (Trulicity), 1.5 MG SC WK Glipizide (Glipizide Er), 2 TABS PO BID Metformin HCl (Metformin HCl ER), 1,000 MG PO BID Simvastatin (Zocor), 20 MG PO HS Scheduled PRN Hydrocodone/Acetaminophen 5MG/325MG ([place] 5MG/325MG), 1-2 TABLET PO Q4H PRN for Pain Current Inpatient Medications Current Inpatient Medications Medications (Trade) Dose Ordered Sig/Prabhjot Route Start Time Stop Time Status Last Admin Dose Admin Ampicillin Sodium/ Sulbactam Sodium/ Sodium Chloride (Unasyn Inj/Nss 100ml) 104 ml @ 200 mls/hr Q6H IV 05/03/16 16:00 05/04/16 15:59 05/03/16 23:06 200 MLS/HR Ondansetron HCl (Zofran Inj) 4 mg Q4H PRN IV 05/03/16 10:00 06/02/16 09:59 Morphine Sulfate (MoRPHine SULFATE INJ) 4 mg Q1H PRN IV 05/03/16 10:00 05/17/16 09:59 Glucose (Glucose 40% Gel) 15-30 GRAMS 15 GRAMS... UD PRN PO 05/03/16 10:00 06/02/16 09:59 Glucose (Glucose Chew Tab) 4-8 Tablets 4 Tabl... UD PRN PO 05/03/16 10:00 06/02/16 09:59 Dextrose (Dextrose 50% 50ML Syringe) 25-50ML OF 50% DW IV FOR... UD PRN IV 05/03/16 10:00 06/02/16 09:59 Glucagon (Glucagon Inj) 1 mg UD PRN SQ 05/03/16 10:00 06/02/16 09:59 Miscellaneous (Iv Fluids Completed) 1 ea PRN PRN N/A 05/03/16 11:00 05/03/17 10:59 Acetaminophen/ Hydrocodone Bitart ([place] 5/325 Tab) 1 tab Q4H PRN PO 05/03/16 14:45 05/17/16 14:44 Acetaminophen/ Hydrocodone Bitart 2 tab 2 tab Q4H PRN PO 05/03/16 14:45 05/17/16 14:44 Lactated Ringer's 1,000 ml @ 150 mls/hr Q6H40M IV 05/03/16 15:00 06/02/16 14:59 05/03/16 23:03 150 MLS/HR Phenylephrine HCl 20 mg/Dextrose 502 ml @ 0 mls/hr Q0M PRN IV 05/03/16 16:00 05/03/16 23:59 Tranexamic Acid 1000 mg/Sodium Chloride 260 ml @ 32.5 mls/hr TODAY@0100 ONCE IV 05/04/16 01:00 05/04/16 08:59 Midazolam HCl 250 ml @ 0 mls/hr Q0M PRN IV 05/03/16 18:50 06/02/16 18:49 Fentanyl Citrate 250 ml @ 0 mls/hr Q0M PRN IV 05/03/16 19:00 05/17/16 18:59 Rocuronium [place] 100 mg/ Sodium Chloride 100 ml @ 0 mls/hr Q0M PRN IV 05/03/16 19:45 06/02/16 19:44 Norepinephrine Bitartrate 8 mg/ Dextrose 508 ml @ 0 mls/hr Q0M PRN IV 05/03/16 20:02 06/02/16 20:01 Phenylephrine HCl/ Dextrose (Jered-Synephrine Inj/D5W 500ml) 502 ml @ 0 mls/hr Q0M PRN IV 05/03/16 20:02 06/02/16 20:01 Insulin Human Regular (Insulin IV Infusion Protocol) 1 ea Q15M N/A 05/03/16 21:33 06/02/16 21:32 05/03/16 21:48 1 EA Insulin Aspart (novoLOG ASPART) SLIDING SCALE PCHS SC 05/04/16 08:00 06/03/16 07:59 Miscellaneous (Insulin Protocol Goal Range (Other)) 1 ea TODAY@2200 N/A 05/03/16 22:00 05/03/16 23:59 05/03/16 22:00 1 EA Miscellaneous 1 ea 1 ea TODAY@2200 N/A 05/03/16 22:00 05/03/16 23:59 05/03/16 22:00 1 EA Insulin Human Regular/Sodium Chloride (novoLIN-R/Nss 250ml) 252.5 ml @ 0 mls/hr DAILY@1130 IV 05/03/16 22:30 06/02/16 22:29 05/03/16 22:58 4.6 MLS/HR Review of Systems Unable to obtain due to the acuity of situation Physical Exam Date Time Temp Pulse Resp B/P Pulse Ox O2 Delivery O2 Flow Rate FiO2 05/03/16 19:05 130 12 116/83 98 Mechanical Ventilator 100 05/03/16 18:55 141 12 177/121 98 Mechanical Ventilator 100 05/03/16 18:50 100 05/03/16 18:45 90 12 160/90 99 Mechanical Ventilator 100 05/03/16 17:20 130 22 100 Mask 10 110/41 05/03/16 17:16 130 22 85/73 100 Mask 10 05/03/16 17:08 124 22 97/48 100 Mask 10 05/03/16 17:06 120 22 88/58 100 Mask 10 05/03/16 17:04 120 22 108/49 100 Mask 10 05/03/16 17:00 122 22 97/58 100 Mask 10 05/03/16 16:55 120 22 92/68 100 Mask 10 05/03/16 16:50 98 22 123/95 100 Mask 10 05/03/16 16:45 104 22 132/74 100 Mask 10 05/03/16 16:40 110 22 101/75 100 Mask 10 05/03/16 16:35 133 22 79/53 100 Mask 10 05/03/16 16:29 129 22 79/50 100 Mask 10 05/03/16 16:25 124 22 74/50 100 Mask 10 05/03/16 16:21 115 22 55/37 100 Mask 10 05/03/16 16:19 117 20 70/47 100 Mask 10 05/03/16 16:15 120 20 81/60 100 Mask 10 05/03/16 16:10 109 20 65/52 100 Mask 10 05/03/16 16:05 101 16 99/69 100 Mask 10 05/03/16 16:00 105 16 98/60 100 Mask 10 05/03/16 15:48 102 16 78/50 100 Mask 10 05/03/16 15:40 100 16 54/41 100 Mask 10 05/03/16 15:33 105 16 80/50 100 Mask 10 05/03/16 15:30 95 16 87/48 100 Mask 10 05/03/16 15:25 97 16 65/42 100 Mask 10 05/03/16 15:20 100 16 108/54 100 Mask 10 05/03/16 15:15 93 16 74/47 100 Mask 10 05/03/16 15:12 93 16 70/48 100 Mask 10 05/03/16 15:10 100 16 69/48 98 Mask 10 05/03/16 15:05 106 16 143/54 97 Mask 10 05/03/16 14:55 99 16 145/81 97 Mask 10 05/03/16 14:45 36.5 98 16 178/85 95 Mask 10 05/03/16 11:30 Room Air 05/03/16 11:26 36.9 105 18 159/82 95 Room Air 05/03/16 10:10 102 18 158/84 96 Room Air 05/03/16 08:37 36.8 106 20 165/97 94 Room Air General: Moderate distress, anxiety HEENT: Pale pupils equal round reactive to light Lungs: Clear to auscultation bilaterally CVS: Tachycardia S1-S2 regular rate and rhythm no murmurs rubs gallops - Limited bedside echocardiogram revealed tachycardia with under filled ventricles. Abdomen: Obese, soft, mild tenderness with deep palpation. - Limited bedside ultrasound performed by myself revealed a large fluid collection in the right hepatic renal recess concerning for hematoma Extremities: Weak thready pulses 1+ Neuro: Moves all 4, no focal deficit Mental health: Anxious, concerned he is dying Laboratory Results Last 24 Hours Test 05/03/16 00:00 05/03/16 08:55 05/03/16 11:52 05/03/16 15:33 Urine Color YELLOW Urine Appearance CLEAR Urine pH 5.0 Urine Specific [place] 1.020 Urine Protein NEG Urine Glucose (UA) NEG Urine Ketones NEG Urine Occult Blood NEG Urine Nitrite NEG Urine Bilirubin NEG Urine Urobilinogen NEG Urine Leukocyte Esterase NEG White Blood Count 10.85 K/uL Red Blood Count 5.29 M/uL Hemoglobin 16.5 g/dL Hematocrit 47.2 % Mean Corpuscular Volume 89.2 fL Mean Corpuscular Hemoglobin 31.2 pg Mean Corpuscular Hemoglobin Concent 35.0 g/dl Platelet Count 233 K/uL Mean Platelet Volume 10.9 fL Neutrophils (%) (Auto) 76.3 % Lymphocytes (%) (Auto) 13.1 % Monocytes (%) (Auto) 8.8 % Eosinophils (%) (Auto) 1.0 % Basophils (%) (Auto) 0.5 % Neutrophils # (Auto) 8.29 K/uL Lymphocytes # (Auto) 1.42 K/uL Monocytes # (Auto) 0.95 K/uL Eosinophils # (Auto) 0.11 K/uL Basophils # (Auto) 0.05 K/uL RDW Standard Deviation 41.3 fL RDW Coefficient of Variation 12.8 % Immature Granulocyte % (Auto) 0.3 % Immature Granulocyte # (Auto) 0.03 K/uL Sodium Level 139 mmol/L Potassium Level 4.0 mmol/L Chloride Level 103 mmol/L Carbon Dioxide Level 28 mmol/L Anion Gap 8.0 mmol/L Blood Urea Nitrogen 17 mg/dl Creatinine 1.00 mg/dl Est Creatinine Clear Calc Drug Dose 118.3 ml/min Estimated GFR () 103.4 Estimated GFR (Non- 89.2 BUN/Creatinine Ratio 16.5 Random Glucose 215 mg/dl Calcium Level 9.4 mg/dl Total Bilirubin 0.6 mg/dl Direct Bilirubin 0.2 mg/dl Aspartate Amino Transf (AST/SGOT) 65 U/L Alanine Aminotransferase (ALT/SGPT) 110 U/L Alkaline Phosphatase 72 U/L Total Protein 8.3 gm/dl Albumin 4.6 gm/dl Lipase 167 U/L Bedside Glucose 163 mg/dl 263 mg/dl Test 05/03/16 16:25 05/03/16 20:09 05/03/16 20:15 05/03/16 20:26 White Blood Count 13.20 K/uL 16.15 K/uL Red Blood Count 3.27 M/uL 4.43 M/uL Hemoglobin 10.1 g/dL 13.2 g/dL Hematocrit 29.6 % 38.3 % Mean Corpuscular Volume 90.5 fL 86.5 fL Mean Corpuscular Hemoglobin 30.9 pg 29.8 pg Mean Corpuscular Hemoglobin Concent 34.1 g/dl 34.5 g/dl RDW Standard Deviation 42.1 fL 43.7 fL RDW Coefficient of Variation 12.8 % 13.8 % Platelet Count 233 K/uL 137 K/uL Mean Platelet Volume 10.7 fL 10.7 fL Sodium Level 142 mmol/L 140 mmol/L Potassium Level 4.5 mmol/L 5.2 mmol/L Chloride Level 106 mmol/L 104 mmol/L Carbon Dioxide Level 24 mmol/L 24 mmol/L Anion Gap 12.0 mmol/L 12.0 mmol/L Blood Urea Nitrogen 16 mg/dl 17 mg/dl Creatinine 1.40 mg/dl 1.60 mg/dl Est Creatinine Clear Calc Drug Dose 84.5 ml/min 73.9 ml/min Estimated GFR () 68.9 58.6 Estimated GFR (Non- 59.4 50.6 BUN/Creatinine Ratio 11.1 10.4 Random Glucose 328 mg/dl 442 mg/dl Calcium Level 7.9 mg/dl 6.9 mg/dl Total Creatine Kinase 149 U/L Creatine Kinase MB 0.9 ng/ml Creatine Kinase MB Ratio 0.6 Troponin I < 0.015 ng/ml Beta-Hydroxybutyric Acid 5.01 mg/dL 3.43 mg/dL Bedside Hemoglobin 12.2 g/dl Bedside Hematocrit 36 % Bedside Blood Gas pH (LAB) 7.16 Bedside Blood Gas pCO2 (LAB) 57 mmHg Bedside Blood Gas pO2 (LAB) 154 mmHg Bedside Blood Gas HCO3 (LAB) 20 meq/L Bedside Blood Gas Total CO2 22 mEq/l Bedside Blood Gas Base Excess (LAB) -9.0 meq/L Bedside Blood Gas O2 Saturation 99.0 % Bedside Sodium 135 mEq/L Bedside Potassium 5.6 mEq/L Nucleated RBC Absolute Count (auto) 0.02 K/uL Nucleated Red Blood Cells % 0.1 % Lactic Acid Level 7.3 mmol/L Total Bilirubin 0.8 mg/dl Aspartate Amino Transf (AST/SGOT) 32 U/L Alanine Aminotransferase (ALT/SGPT) 56 U/L Alkaline Phosphatase 58 U/L Total Protein 5.1 gm/dl Albumin 2.8 gm/dl Globulin 2.3 gm/dl Albumin/Globulin Ratio 1.2 Prothrombin Time 12.4 SECONDS Prothromb Time International Ratio 1.2 Activated Partial Thromboplast Time 26.1 SECONDS Partial Thromboplastin Ratio 1.0 Test 05/03/16 21:11 05/03/16 22:33 Bedside Glucose 370 mg/dl Blood Gas Sample Site Art Line Bedside Blood Gas pH (LAB) 7.30 Bedside Blood Gas pCO2 (LAB) 47 mmHg Bedside Blood Gas pO2 (LAB) 192 mmHg Bedside Blood Gas HCO3 (LAB) 23 meq/L Bedside Blood Gas Total CO2 25 mEq/l Bedside Blood Gas Base Excess (LAB) -3.0 meq/L Bedside Blood Gas O2 Saturation 100.0 % Eric Test NA Oxygen Delivery Device Ventilator Bedside Oxygen Rate (breaths/min) 30 Blood Gas Minute Ventilation 15 Bedside FiO2 100 % Blood Gas Tidal Volume 550 Blood Gas PEEP 5 Assessment & Plan (1) Shock Aggressive volume resuscitation Required phenylephrine in the postoperative period Large bore central venous access (2) Metabolic acidosis Secondary to shock Resolved (3) Postoperative anemia due to acute blood loss Secondary to bleeding port site is visualized in the OR Large volume blood product resuscitation: 6 units packed red blood cells 2 units of FFP, 1 unit platelet I do not believe the patient is continuing to bleed at this point. Continue to monitor drain output (4) Surgical complication involving circulatory system associated with non- cardiac procedure Emergent diagnostic laparoscopy Bleeding port site found and repaired (5) S/P laparoscopic appendectomy Resolved (6) Hypocalcemia Secondary to large volume packed red blood cell transfusion. Hemodynamics improved with calcium repletion, 2 g calcium gluconate (7) Hyperglycemia Secondary to diabetes mellitus type 2 acute stress reaction On insulin infusion (8) VU (acute kidney injury) Secondary to acute blood loss, resolved with aggressive volume resuscitation Strict I&O monitoring (9) Diabetes mellitus On insulin infusion, Hemoglobin A1c 6.4 (10) Obesity, morbid, BMI 40.0-49.9 May benefit from credit control administrator and nutritional consult in convalescent phase I have personally spent 180 minutes of critical care time in the direct management of this patient. This is a life/limb threatening event. This includes time spent evaluating patient, direct bedside care, chart review, placing orders, interpretation of diagnostic studies, discussion with consultants, patient, and family members, as well as other required patient management activities. This time is exclusive of all separately billable procedures, and teaching time and separate from and in addition to any other critical care service time. This was extensive critical care time, requiring multiple discussions with anesthesia, surgery, family. I was actively involved in the bedside management of the patient including but not limited to actively squeezing blood into the patient.
--- NOTE | 2016-05-03 23:26 | Procedure Note ---
Procedure Note Procedure Date May 03, 2016. Procedure Description Procedure Name: Femoral arterial line Procedure time out: side/site verified, patient ID confirmed, correct procedure Consent obtained: verbal, emergent consent implied Time of procedure: 16:20 Performed by: attending Indications: other (hypotension need for invasive hemodynamic monitoring) Contraindications: none Description: The patient's right groin was prepped with chlorhexidine and draped in a sterile fashion, initial ultrasound guided arterial line was attempted by Dr. Hoffman. He entered what appeared to be the femoral artery, however dark blood which was minimally pulsatile returned. That attempt aborted and I attempted to cannulate the right femoral artery by direct palpation. I also achieved blood return, over this was dark and minimally pulsatile, the guidewire was able to be placed. Upon third attempt by direct palpation I achieved a bright red pulsatile blood return and a 12 cm catheter was placed via Seldinger technique into the right groin. This was sutured in place and dressed by Dr. Hoffman. Complications: none Patient tolerated procedure: well Post-procedure vital signs: other (patient had persistent hypotension, however the hypotension remain the same pre-and Postprocedure) Central Line Procedure time out: side/site verified, patient ID confirmed, sterile procedure used Consent obtained: verbal, emergent consent implied Time of procedure: 16:00 Performed by: attending Indications: central drug admin., CVP monitoring, other (acute blood loss) Prep: chlorhexadine prep Anesthesia: lidocaine 1% without epi Volume anesthetic (ml's): 2 Central line lumen: double Central line location: internal jugular (R) Additional details: ultrasound guidance, Selinger technique used, line sutured , good blood return CXR: appropriate position, no pneumothorax Complications: none Patient tolerated procedure: well Post-procedure vital signs: other (patient had persistent hypotension, however the hypotension remain the same pre-and Postprocedure)
[2016-05-04] VITALS (75 sets, daily range): BP systolic 84–136; BP diastolic -50–97; PULSE 84–105; TEMP 36.5–37.2; O2SAT 92–100
[2016-05-04 00:38] LABS: BASO % 0.1 %; BASO ABS # 0.01 K/uL (0-0.2); HEMATOCRIT 31.9 % (42-52); IG% 0.8 %; LYMPH % 5.2 %; LYMPH ABS # 0.75 K/uL (1.2-3.4); MEAN CELL VOLUME 85.3 fL (80-100); MEAN CORPUSCULAR HEMOGLOBIN 30.2 pg (25-34); MEAN PLATELET VOLUME 10.8 fL (7.4-10.4); MONO % 11.1 %; NEUT % 82.8 %; PLATELET COUNT 165 K/uL (130-400); RED BLOOD COUNT 3.74 M/uL (4.7-6.1); WHITE BLOOD COUNT 14.47 K/uL (4.8-10.8)
[2016-05-04 00:54] LABS: COMPLETE YES; MEAN CORPUSCULAR HGB CONC 35.4 g/dl (32-36)
[2016-05-04 00:55] LABS: BUN/CREATININE RATIO 11.5 (10-20); CALCIUM 6.8 mg/dl (8.5-10.1); CREATININE 1.5 mg/dl (0.60-1.40); MAGNESIUM 1.5 mg/dl (1.8-2.4); POTASSIUM 4.8 mmol/L (3.5-5.1)
[2016-05-04] MEDS ORDERED: SODIUM CHLORIDE 0.9% IV ONE (01:00)
[2016-05-04] MEDS ORDERED: TRANEXAMIC ACID IV ONE (01:00)
[2016-05-04 01:05] LABS: BETA-HYDROXYBUTYRATE 1.59 mg/dL (0.2-2.81)
[2016-05-04] MEDS ORDERED: CALCIUM GLUCONATE 10% 1,000 MG in SODIUM CHLORIDE 0.9% 50ML 50 ML IV STA (02:13)
[2016-05-04] MEDS: AMPICILLIN/SULBACTAM SOD INJ 1,500 MG in SODIUM CHLORIDE 0.9% 100ML 100 ML IV SCH ×2 (04:01→09:32)
--- NOTE | 2016-05-04 04:28 | Surgery Progress Note ---
Surgery Progress Note Date of Service May 04, 2016. Subjective Post OP Day: 1 much calmer now on vent per nursing Objective Vital Signs: Date Time Temp Pulse Resp B/P Pulse Ox O2 Delivery O2 Flow Rate FiO2 05/04/16 04:02 70 05/04/16 04:02 99 Mechanical Ventilator 60 05/04/16 02:29 37.2 102 31 102/51 97 106/71 05/04/16 02:28 70 05/04/16 02:09 104 18 112/59 98 05/04/16 02:00 105 16 118/89 98 106/71 05/04/16 01:59 105 16 106/79 98 05/04/16 01:49 104 16 114/86 98 05/04/16 01:39 105 16 104/77 99 05/04/16 01:29 104 17 112/94 99 05/04/16 01:19 105 17 112/97 98 05/04/16 01:19 105 17 112/97 98 05/04/16 01:17 05/04/16 01:09 105 18 104/79 98 05/04/16 01:09 105 18 104/79 98 05/04/16 01:00 103 17 100/70 98 05/04/16 01:00 103 17 100/70 98 05/04/16 00:39 102 18 92/50 99 05/04/16 00:29 102 18 107/54 99 05/04/16 00:25 70 05/04/16 00:25 99 Mechanical Ventilator 70 05/04/16 00:18 104 20 110/62 99 05/04/16 00:08 102 19 106/63 100 05/04/16 00:00 102 19 98/50 100 05/03/16 23:58 104 20 106/59 100 05/03/16 23:48 104 20 103/59 100 05/03/16 23:38 104 18 107/61 100 05/03/16 23:35 70 05/03/16 23:28 106 20 109/70 100 05/03/16 23:18 107 20 96/55 100 05/03/16 23:08 106 20 98/50 100 05/03/16 23:00 104 20 85/44 100 05/03/16 22:58 104 19 94/50 100 05/03/16 22:49 104 19 86/42 99 05/03/16 22:38 109 25 135/100 100 05/03/16 22:29 96 16 104/49 100 05/03/16 22:19 96 30 104/53 100 05/03/16 22:08 98 30 103/53 100 05/03/16 22:00 102 30 100/54 100 05/03/16 22:00 102 30 100/54 100 05/03/16 21:48 108 30 91/53 100 05/03/16 21:38 115 30 87/50 100 05/03/16 21:30 123 30 78/41 99 05/03/16 21:28 124 30 75/45 99 05/03/16 21:19 130 30 80/42 98 05/03/16 21:09 141 12 157/80 99 05/03/16 20:59 135 14 166/110 100 05/03/16 20:49 129 12 104/47 100 05/03/16 20:38 130 12 107/54 100 05/03/16 20:30 129 14 94/58 99 05/03/16 20:19 129 22 119/53 100 05/03/16 20:09 129 24 136/73 100 05/03/16 20:09 98 Mechanical Ventilator 100 05/03/16 19:58 125 22 81/47 99 05/03/16 19:49 130 24 91/45 99 05/03/16 19:38 140 29 129/86 98 05/03/16 19:30 139 28 185/105 98 05/03/16 19:28 130 24 134/92 98 05/03/16 19:19 125 14 114/75 97 05/03/16 19:09 151 30 213/137 99 05/03/16 19:05 130 12 116/83 98 Mechanical Ventilator 100 05/03/16 18:55 141 12 177/121 98 Mechanical Ventilator 100 05/03/16 18:50 100 05/03/16 18:45 90 12 160/90 99 Mechanical Ventilator 100 05/03/16 17:20 130 22 100 Mask 10 110/41 05/03/16 17:16 130 22 85/73 100 Mask 10 05/03/16 17:08 124 22 97/48 100 Mask 10 05/03/16 17:06 120 22 88/58 100 Mask 10 05/03/16 17:04 120 22 108/49 100 Mask 10 05/03/16 17:00 122 22 97/58 100 Mask 10 05/03/16 16:55 120 22 92/68 100 Mask 10 05/03/16 16:50 98 22 123/95 100 Mask 10 05/03/16 16:45 104 22 132/74 100 Mask 10 05/03/16 16:40 110 22 101/75 100 Mask 10 05/03/16 16:35 133 22 79/53 100 Mask 10 05/03/16 16:29 129 22 79/50 100 Mask 10 05/03/16 16:25 124 22 74/50 100 Mask 10 05/03/16 16:21 115 22 55/37 100 Mask 10 05/03/16 16:19 117 20 70/47 100 Mask 10 05/03/16 16:15 120 20 81/60 100 Mask 10 05/03/16 16:10 109 20 65/52 100 Mask 10 05/03/16 16:05 101 16 99/69 100 Mask 10 05/03/16 16:00 105 16 98/60 100 Mask 10 05/03/16 15:48 102 16 78/50 100 Mask 10 05/03/16 15:40 100 16 54/41 100 Mask 10 05/03/16 15:33 105 16 80/50 100 Mask 10 05/03/16 15:30 95 16 87/48 100 Mask 10 05/03/16 15:25 97 16 65/42 100 Mask 10 05/03/16 15:20 100 16 108/54 100 Mask 10 05/03/16 15:15 93 16 74/47 100 Mask 10 05/03/16 15:12 93 16 70/48 100 Mask 10 05/03/16 15:10 100 16 69/48 98 Mask 10 05/03/16 15:05 106 16 143/54 97 Mask 10 05/03/16 14:55 99 16 145/81 97 Mask 10 05/03/16 14:45 36.5 98 16 178/85 95 Mask 10 05/03/16 11:30 Room Air 05/03/16 11:26 36.9 105 18 159/82 95 Room Air 05/03/16 10:10 102 18 158/84 96 Room Air 05/03/16 08:37 36.8 106 20 165/97 94 Room Air Physical Exam: RYDER drainage (serosanguinous. slowing down. 400 cc's since 10 pm per RN) General Appearance: + obese Head: normocephalic Neck: supple Cardiovascular: + tachycardia, + pertinent finding (hypotensive) Abdomen: + pertinent finding (abdomen: soft. RYDER in place. wounds look good. ) Incision(s): clean, intact, no drainage Extremities: non-tender, no pedal edema Laboratory Results: Results Past 24 Hours Test 05/03/16 08:55 05/03/16 11:52 05/03/16 15:33 05/03/16 16:25 Range/Units White Blood Count 10.85 13.20 4.8-10.8 K/uL Red Blood Count 5.29 3.27 4.7-6.1 M/uL Hemoglobin 16.5 10.1 14.0-18.0 g/dL Hematocrit 47.2 29.6 42-52 % Mean Corpuscular Volume 89.2 90.5 80-100 fL Mean Corpuscular Hemoglobin 31.2 30.9 25-34 pg Mean Corpuscular Hemoglobin Concent 35.0 34.1 32-36 g/dl Platelet Count 233 233 130-400 K/uL Mean Platelet Volume 10.9 10.7 7.4-10.4 fL Neutrophils (%) (Auto) 76.3 % Lymphocytes (%) (Auto) 13.1 % Monocytes (%) (Auto) 8.8 % Eosinophils (%) (Auto) 1.0 % Basophils (%) (Auto) 0.5 % Neutrophils # (Auto) 8.29 1.4-6.5 K/uL Lymphocytes # (Auto) 1.42 1.2-3.4 K/uL Monocytes # (Auto) 0.95 0.11-0.59 K/uL Eosinophils # (Auto) 0.11 0-0.5 K/uL Basophils # (Auto) 0.05 0-0.2 K/uL RDW Standard Deviation 41.3 42.1 36.4-46.3 fL RDW Coefficient of Variation 12.8 12.8 11.5-14.5 % Immature Granulocyte % (Auto) 0.3 % Immature Granulocyte # (Auto) 0.03 0.00-0.02 K/uL Sodium Level 139 142 136-145 mmol/L Potassium Level 4.0 4.5 3.5-5.1 mmol/L Chloride Level 103 106 98-107 mmol/L Carbon Dioxide Level 28 24 21-32 mmol/L Anion Gap 8.0 12.0 3-11 mmol/L Blood Urea Nitrogen 17 16 7-18 mg/dl Creatinine 1.00 1.40 0.60-1.40 mg/dl Est Creatinine Clear Calc Drug Dose 118.3 84.5 ml/min Estimated GFR () 103.4 68.9 Estimated GFR (Non- 89.2 59.4 BUN/Creatinine Ratio 16.5 11.1 10-20 Random Glucose 215 328 70-99 mg/dl Calcium Level 9.4 7.9 8.5-10.1 mg/dl Total Bilirubin 0.6 0.2-1 mg/dl Direct Bilirubin 0.2 0-0.2 mg/dl Aspartate Amino Transf (AST/SGOT) 65 15-37 U/L Alanine Aminotransferase (ALT/SGPT) 110 12-78 U/L Alkaline Phosphatase 72 45-117 U/L Total Protein 8.3 6.4-8.2 gm/dl Albumin 4.6 3.4-5.0 gm/dl Lipase 167 73-393 U/L Bedside Glucose 163 263 70-99 mg/dl Total Creatine Kinase 149 39-308 U/L Creatine Kinase MB 0.9 0.5-3.6 ng/ml Creatine Kinase MB Ratio 0.6 0-3.0 Troponin I < 0.015 0-0.045 ng/ml Beta-Hydroxybutyric Acid 5.01 0.2-2.81 mg/dL Test 05/03/16 20:09 05/03/16 20:15 05/03/16 20:26 05/03/16 21:11 Range/Units Bedside Hemoglobin 12.2 14.0-18.0 g/dl Bedside Hematocrit 36 42-52 % Bedside Blood Gas pH (LAB) 7.16 7.35-7.45 Bedside Blood Gas pCO2 (LAB) 57 35-46 mmHg Bedside Blood Gas pO2 (LAB) 154 80-95 mmHg Bedside Blood Gas HCO3 (LAB) 20 19-24 meq/L Bedside Blood Gas Total CO2 22 24-31 mEq/l Bedside Blood Gas Base Excess (LAB) -9.0 -9-1.8 meq/L Bedside Blood Gas O2 Saturation 99.0 90-95 % Bedside Sodium 135 135-144 mEq/L Bedside Potassium 5.6 3.3-5.0 mEq/L White Blood Count 16.15 4.8-10.8 K/uL Red Blood Count 4.43 4.7-6.1 M/uL Hemoglobin 13.2 14.0-18.0 g/dL Hematocrit 38.3 42-52 % Mean Corpuscular Volume 86.5 80-100 fL Mean Corpuscular Hemoglobin 29.8 25-34 pg Mean Corpuscular Hemoglobin Concent 34.5 32-36 g/dl RDW Standard Deviation 43.7 36.4-46.3 fL RDW Coefficient of Variation 13.8 11.5-14.5 % Platelet Count 137 130-400 K/uL Mean Platelet Volume 10.7 7.4-10.4 fL Nucleated RBC Absolute Count (auto) 0.02 0-0 K/uL Nucleated Red Blood Cells % 0.1 % Sodium Level 140 136-145 mmol/L Potassium Level 5.2 3.5-5.1 mmol/L Chloride Level 104 98-107 mmol/L Carbon Dioxide Level 24 21-32 mmol/L Anion Gap 12.0 3-11 mmol/L Blood Urea Nitrogen 17 7-18 mg/dl Creatinine 1.60 0.60-1.40 mg/dl Est Creatinine Clear Calc Drug Dose 73.9 ml/min Estimated GFR () 58.6 Estimated GFR (Non- 50.6 BUN/Creatinine Ratio 10.4 10-20 Random Glucose 442 70-99 mg/dl Lactic Acid Level 7.3 0.4-2.0 mmol/L Calcium Level 6.9 8.5-10.1 mg/dl Total Bilirubin 0.8 0.2-1 mg/dl Aspartate Amino Transf (AST/SGOT) 32 15-37 U/L Alanine Aminotransferase (ALT/SGPT) 56 12-78 U/L Alkaline Phosphatase 58 45-117 U/L Total Protein 5.1 6.4-8.2 gm/dl Albumin 2.8 3.4-5.0 gm/dl Globulin 2.3 2.5-4.0 gm/dl Albumin/Globulin Ratio 1.2 0.9-2 Beta-Hydroxybutyric Acid 3.43 0.2-2.81 mg/dL Prothrombin Time 12.4 9.0-12.0 SECONDS Prothromb Time International Ratio 1.2 0.9-1.1 Activated Partial Thromboplast Time 26.1 21.0-31.0 SECONDS Partial Thromboplastin Ratio 1.0 Bedside Glucose 370 70-99 mg/dl Test 05/03/16 22:33 05/04/16 00:11 05/04/16 00:29 05/04/16 01:04 Range/Units Blood Gas Sample Site Art Line Bedside Blood Gas pH (LAB) 7.30 7.35-7.45 Bedside Blood Gas pCO2 (LAB) 47 35-46 mmHg Bedside Blood Gas pO2 (LAB) 192 80-95 mmHg Bedside Blood Gas HCO3 (LAB) 23 19-24 meq/L Bedside Blood Gas Total CO2 25 24-31 mEq/l Bedside Blood Gas Base Excess (LAB) -3.0 -9-1.8 meq/L Bedside Blood Gas O2 Saturation 100.0 90-95 % Eric Test NA Oxygen Delivery Device Ventilator Bedside Oxygen Rate (breaths/min) 30 Blood Gas Minute Ventilation 15 Bedside FiO2 100 % Blood Gas Tidal Volume 550 Blood Gas PEEP 5 Bedside Glucose (other) 412 381 70-99 mg/dl White Blood Count 14.47 4.8-10.8 K/uL Red Blood Count 3.74 4.7-6.1 M/uL Hemoglobin 11.3 14.0-18.0 g/dL Hematocrit 31.9 42-52 % Mean Corpuscular Volume 85.3 80-100 fL Mean Corpuscular Hemoglobin 30.2 25-34 pg Mean Corpuscular Hemoglobin Concent 35.4 32-36 g/dl Platelet Count 165 130-400 K/uL Mean Platelet Volume 10.8 7.4-10.4 fL Neutrophils (%) (Auto) 82.8 % Lymphocytes (%) (Auto) 5.2 % Monocytes (%) (Auto) 11.1 % Eosinophils (%) (Auto) 0.0 % Basophils (%) (Auto) 0.1 % Neutrophils # (Auto) 11.98 1.4-6.5 K/uL Lymphocytes # (Auto) 0.75 1.2-3.4 K/uL Monocytes # (Auto) 1.61 0.11-0.59 K/uL Eosinophils # (Auto) 0.00 0-0.5 K/uL Basophils # (Auto) 0.01 0-0.2 K/uL RDW Standard Deviation 43.8 36.4-46.3 fL RDW Coefficient of Variation 14.0 11.5-14.5 % Immature Granulocyte % (Auto) 0.8 % Immature Granulocyte # (Auto) 0.12 0.00-0.02 K/uL Sodium Level 140 136-145 mmol/L Potassium Level 4.8 3.5-5.1 mmol/L Chloride Level 102 98-107 mmol/L Carbon Dioxide Level 27 21-32 mmol/L Anion Gap 11.0 3-11 mmol/L Blood Urea Nitrogen 17 7-18 mg/dl Creatinine 1.50 0.60-1.40 mg/dl Est Creatinine Clear Calc Drug Dose 78.9 ml/min Estimated GFR () 63.3 Estimated GFR (Non- 54.7 BUN/Creatinine Ratio 11.5 10-20 Random Glucose 390 70-99 mg/dl Calcium Level 6.8 8.5-10.1 mg/dl Phosphorus Level 3.0 2.5-4.9 mg/dl Magnesium Level 1.5 1.8-2.4 mg/dl Beta-Hydroxybutyric Acid 1.59 0.2-2.81 mg/dL Test 05/04/16 02:07 05/04/16 02:21 05/04/16 03:11 Range/Units Bedside Glucose (other) 356 333 70-99 mg/dl Ionized Calcium 0.99 1.12-1.32 mmol/l Assessment & Plan 1. acute appendicitis s/p lap appy 2. post op port site bleeding taken back to OR last night and bleeding controlled continues to have higher than expected RYDER output. has dramatically slowed down now since receiving platelets will monitor closely. Hg still > 11 3. hypotensive/tachycardic ? etiology hg ok. good urine OP still requiring pressors monitor closely 3. DM on insulin drip
[2016-05-04] MEDS: LACTATED RINGER'S 1000ML 1,000 ML IV SCH ×2 (04:30→12:06)
--- NOTE | 2016-05-04 04:37 | OPERATIVE REPORT ---
DATE OF OPERATION: 05/03/2016 PREOPERATIVE DIAGNOSIS: Intra-abdominal bleeding. POSTOPERATIVE DIAGNOSIS: Left lower quadrant port site bleeding. PROCEDURE PERFORMED: Laparoscopy with oversew of port site bleeding and abdominal washout. SURGEON: Alon Reynoso DO CALL OR CONTACT CENTRE TEAM LEADER: Driss Pisano PA-C ANESTHESIA: General. ESTIMATED BLOOD LOSS: 3000 mL. GROSS FINDINGS: This is a 46-year-old male who earlier in the day had undergone a laparoscopic appendectomy without incident. In the recovery room, he was noted to be hypotensive. His hemoglobin had dropped and an ultrasound showed intra-abdominal fluid. He was brought back to the operating room for immediate exploration. DESCRIPTION OF PROCEDURE: After informed consent was obtained, the patient was taken to the operating suite and placed in supine position. Conroy catheter was placed and the abdomen was sterilely prepped and draped in usual fashion. His periumbilical old incision was reopened up and 0 Vicryl stay sutures were placed in the fascia. We bluntly entered the abdomen and placed a 12 mm Anabel trocar. We insufflated the abdomen at 20 mmHg on high flow. A scope was inserted. There was a lot of blood clot throughout the lower abdomen, primarily in the left lower quadrant and also in the pelvis. We began by simply beginning by starting to washout the abdominal cavity. As we did this, we were able to look at all the port sites and there was a definite pulsatile vessel pumping into the abdominal cavity from the left lower quadrant port site. First thing we did was we used a Tom-Ghulam device with 0 Vicryl to puncture through the fascia on either side of bleeding and then tie this down. Two separate sutures were used to do this. The bleeding immediately stopped. The majority of time was then spent washing out the abdominal cavity. We suctioned out clots from the left pericolic gutter as well as the pelvis. We got out the majority of the blood. We did examine the staple line at the cecum as well as the mesoappendix and this was not bleeding. There was no other source of the bleed anywhere throughout the abdominal cavity. We then relooked at the left lower quadrant and again it was dry and no longer bleeding. We irrigated out blood clots we could and then we placed a 10 flat Yonathan-Hodges drain down on the left pericolic gutter and into the pelvis. The trocars were subsequently withdrawn. The fascia of the camera port was closed using 0 Vicryl in a [id number] fashion. The wounds were irrigated and closed using 4-0 Monocryl. Skin glue was used. The patient was transferred to the intensive care unit still intubated in guarded condition. I attest to the content of the Intraoperative Record and any orders documented therein. Any exceptions are noted below. KAUSHIK
[2016-05-04 07:02] LABS: HEMATOCRIT 27.7 % (42-52); MEAN CELL VOLUME 85.8 fL (80-100); MEAN PLATELET VOLUME 10.5 fL (7.4-10.4); PLATELET COUNT 160 K/uL (130-400); RED BLOOD COUNT 3.23 M/uL (4.7-6.1); WHITE BLOOD COUNT 10.08 K/uL (4.8-10.8)
[2016-05-04 07:14] LABS: INR 1.1 (0.9-1.1); PROTHROMBIN TIME (PATIENT) 12.1 SECONDS (9.0-12.0)
[2016-05-04 07:30] LABS: BUN/CREATININE RATIO 15.5 (10-20); CALCIUM 6.4 mg/dl (8.5-10.1); CREATININE 0.87 mg/dl (0.60-1.40); MAGNESIUM 1.2 mg/dl (1.8-2.4); PHOSPHORUS 2.8 mg/dl (2.5-4.9); POTASSIUM 3.8 mmol/L (3.5-5.1)
[2016-05-04] MEDS: INSULIN ASPART 100 UNITS/ML 3 ML PEN SC SCH ×4 (08:00→21:00)
[2016-05-04 08:04] LABS: ESTIMATED AVERAGE GLUCOSE 137 mg/dl; HA1C FLAG Normal (Normal)
[2016-05-04] MEDS ORDERED: CALCIUM GLUCONATE 10% 1,000 MG in SODIUM CHLORIDE 0.9% 50ML 50 ML IV ONE ×2 (08:30→15:00)
[2016-05-04] MEDS: ALBUMIN HUMAN 25% 12.5 GM/50 ML VIAL IV SCH ×2 (08:35→09:02)
[2016-05-04] MEDS ORDERED: FAMOTIDINE IV INJ 20 MG in DEXTROSE 5% 100ML 100 ML IV ONE (08:36)
[2016-05-04] MEDS: FENTANYL 1250MCG/250ML NSS 250 ML IV PRN ×2 (08:41→23:37)
[2016-05-04] MEDS: FAMOTIDINE IV INJ 20 MG in DEXTROSE 5% 100ML 100 ML IV SCH ×2 (09:10→21:32)
[2016-05-04] MEDS: MIDAZOLAM 125MG/250ML D5W 250 ML IV PRN (10:59)
--- NOTE | 2016-05-04 11:46 | OPERATIVE REPORT ---
DATE OF OPERATION: 05/03/2016 PROCEDURE: Closure after laparoscopic exploration by Dr. Reynoso. SURGEON: Dr. Burnette. SPECIFICS OF THE PROCEDURE: Guillermo Gaston is a 46-year-old male who underwent laparoscopic appendectomy and had bleeding from a port site. Dr. Reynoso brought him back urgently to the operating room and found this area bleeding and quickly addressed it, however, Dr. Preston had an emergent surgery with a patient with gastrointestinal bleeding and I was asked to close this patient, so that he could proceed to the next room. Mr. Priyank Pisano PA-C was within the case. Dr. Reynoso scrubbed out after I scrubbed in. There were 4 port sites. A drain had been inserted down into the pelvis and brought out through 1 of the 5 mm ports and sutured in place. We then inspected the area quite closely and did not see any areas of bleeding. An EndoStitch was used to close the one 10 mm port. We did this with a figure-of-8 0 Vicryl with the Endo Close. The umbilical incision then had the large port removed after CO2 had been allowed to escape through the open port. #1 Vicryl was then used in figure-of-8 fashion to close the fascia. 4-0 Monocryl was then used to close the two 5 mm and two 10 mm incisions and skin glue placed over this. The patient tolerated this part of the procedure well hemodynamically and was transferred back to the intensive care unit on a ventilator. I attest to the content of the Intraoperative Record and any orders documented therein. Any exceptio ns are noted below.
[2016-05-04 12:31] LABS: COMPLETE YES; HEMATOCRIT 26.9 % (42-52); IG% 0.4 %; LYMPH % 12.1 %; LYMPH ABS # 1.09 K/uL (1.2-3.4); MEAN CELL VOLUME 85.4 fL (80-100); MEAN CORPUSCULAR HEMOGLOBIN 29.8 pg (25-34); MEAN CORPUSCULAR HGB CONC 34.9 g/dl (32-36); MEAN PLATELET VOLUME 10.6 fL (7.4-10.4); MONO % 13.1 %; NEUT % 74.4 %; PLATELET COUNT 136 K/uL (130-400); RED BLOOD COUNT 3.15 M/uL (4.7-6.1)
[2016-05-04 12:43] LABS: INR 1.1 (0.9-1.1); PROTHROMBIN TIME (PATIENT) 11.9 SECONDS (9.0-12.0)
[2016-05-04 12:45] LABS: PARTIAL THROMBOPLASTIN RATIO 1.1
[2016-05-04 12:54] LABS: POTASSIUM 3.3 mmol/L (3.5-5.1)
--- NOTE | 2016-05-04 13:04 | Critical Care Progress Note ---
Critical Care Progress Note Date of Service May 04, 2016. Attending Dr. Wild Subjective Patient stable at this time Unable to speak at this time Stabilized overnight; bleeding through RYDER drain continues but markedly slowed down Objective Physical Exam: General: Comfortable, no apparent distress Eyes: PERRL, does not follow fingers ENT: Mucous membranes moist, ET tube in place Neck: No JVD, no lymphadenopathy, no thyromegaly Lungs: Clear to auscultation bilaterally, no wheezing, no crackles Heart: S1 and S2 with no added sounds or murmurs Abdomen: Soft, incisions intact, no drainage, RYDER drain in situ with maciel blood , diminished bowel sounds Extremities: No pitting edema, no asymmetric swelling, no calf pain or tenderness, SCDs in place Neuro: RASS -5, patient does not respond to commands Assessment & Plan 46 year old male presenting for emergent appendectomy who was admitted to the ICU for persistent post-operative bleeding with hypotension. Overnight he received multiple blood products including, packed RBCs, FFP, Cryoprecipitate and Plasma. At this time he is stabilized. He remains sedated on mechanical ventilation on AC Mode. Our plan for him is as follows: Neurological - RASS score - 5 - Currently on Fentanyl and Midazolam sedation Respiratory - Currently intubated, ventilator settings this morning AC mode, RR 10, FiO2 50%, Tidal Volume 500 Patient is currently breathing over the ventilator with RR 16 - CXR does show development of bibasilar opacities, suggestive of possible aspiration pneumonia Will repeat CXR tomorrow morning - Will obtain ABG today to assess acid/base status - Will need to be off vasopressors as criteria for extubation Cardiovascular - Currently NSR on monitor - Patient on Phenylephrine drip current running at 0.7 mcg/kg/hr; wean as tolerated to MAP > 65 - BP 100/70-80 systolic Gastrointestinal Status post-appendectomy: - patient hemodynamically stable at this time - Continue serial H&H monitoring - 1 L of blood from RYDER drain - Will administer 25g of 25% albumin for volume expansion at this time Nutrition: - Cannot feed PO at this time as patient is currently on vasopressor support - Hold off on trickle feeds as expected to be extubated soon GI prophylaxis: Famotidine BID Genitourinary - Patient had UO of 1200 yesterday (0.17 ml/kg/hr) Acute Kidney Injury - Cr peaked at 1.6; after volume resuscitation - Improved today to 0.87 Metabolic Acidosis - Secondary to acute blood loss with acute volume resuscitation - Elevated Beta-hydroxybutyrate; Resolving at this time, trending down - Hold Metformin at this time Electrolytes - Na 144; K 3.8; Cl 108; Bicarb 26; BUN 14; Cr 0.87 - Mg 1.2 --> will order 1 gm of Mag Sulfate and re-check labs - Phos 2.8 - Calcium 6.4; ical 0.99 --> 2 g Calcium Gluconate and recheck labs Endocrine Type 2 Diabetes Mellitus - Due to acute stress reaction - HbA1c 6.4 - Patient had elevated BSG 412 early this morning Started on IV insulin drip; BSG improved to 131 Hematologic Acute Blood Loss Anemia - Patient received the following blood products - 6 units PRBC - 2 units FFP - 2 units Cryoprecipitate - 1 units Platelets - H&H 11.3 yesterday --> repeat this morning 9.7 Repeat H&H q 6 hours and monitor - Platelets to be ordered today and placed on hold in case transfusion is required - Continue to monitor drain output Infectious Disease - WBC 14; afebrile overnight; Continue Unasyn IV access - 20 G peripheral line in the left antecub - 18 G peripheral line in left wrist - Right IJ central venous catheter - Right femoral arterial line Code Status - Level I Code Disposition - ICU; patient will require ventilator and vasopressor support at this time Resident Physician Supervision Note: Dr. Bishop was resident physician during care of patient. I separately evaluated patient and did history and exam. I discussed the case with the resident and generally agree with the findings and plan. Patient has a hyper chloremia metabolic acidosis, I am switching his fluids to normal salt at 100 ML's per hour. I believe he is getting adequate fluid at the present and is able to manage his acidosis. Patient has been somewhat difficult to wean from vasoactive medications, random cortisol is 1, I have re- sent a cortisol level to ensure accuracy however I am empirically treating him 6 mg Decadron as a one-time dose to hopefully increase his ability to wean from the vasoactive medications. I discussed this case both with anesthesiology and general surgery. The patient has improved significantly from coming out of the operating room yesterday and I feel we should be able to move towards extubation within the next 24 hours. I am looking for more hemodynamic stability as well as stabilization as he continues to have fluid shifts. I have personally spent 125 minutes of critical care time in the direct management of this patient. This is a life/limb threatening event. This includes time spent evaluating patient, direct bedside care, chart review, placing orders, interpretation of diagnostic studies, discussion with consultants, patient, and family members, as well as other required patient management activities. This time is exclusive of all separately billable procedures, and teaching time and separate from and in addition to any other critical care service time. Documented By: Jimmy Wild DO Data Medications: Current Inpatient Medications Medications (Trade) Dose Ordered Sig/Prabhjot Route Start Time Stop Time Status Last Admin Dose Admin Ampicillin Sodium/ Sulbactam Sodium/ Sodium Chloride (Unasyn Inj/Nss 100ml) 104 ml @ 200 mls/hr Q6H IV 05/03/16 16:00 05/04/16 15:59 05/04/16 09:32 200 MLS/HR Ondansetron HCl (Zofran Inj) 4 mg Q4H PRN IV 05/03/16 10:00 06/02/16 09:59 Morphine Sulfate (MoRPHine SULFATE INJ) 4 mg Q1H PRN IV 05/03/16 10:00 05/17/16 09:59 Glucose (Glucose 40% Gel) 15-30 GRAMS 15 GRAMS... UD PRN PO 05/03/16 10:00 06/02/16 09:59 Glucose (Glucose Chew Tab) 4-8 Tablets 4 Tabl... UD PRN PO 05/03/16 10:00 06/02/16 09:59 Dextrose (Dextrose 50% 50ML Syringe) 25-50ML OF 50% DW IV FOR... UD PRN IV 05/03/16 10:00 06/02/16 09:59 Glucagon (Glucagon Inj) 1 mg UD PRN SQ 05/03/16 10:00 06/02/16 09:59 Miscellaneous (Iv Fluids Completed) 1 ea PRN PRN N/A 05/03/16 11:00 05/03/17 10:59 Acetaminophen/ Hydrocodone Bitart ([place] 5/325 Tab) 1 tab Q4H PRN PO 05/03/16 14:45 05/17/16 14:44 Acetaminophen/ Hydrocodone Bitart 2 tab 2 tab Q4H PRN PO 05/03/16 14:45 05/17/16 14:44 Lactated Ringer's 1,000 ml @ 150 mls/hr Q6H40M IV 05/03/16 15:00 06/02/16 14:59 05/04/16 12:06 150 MLS/HR Midazolam HCl 250 ml @ 0 mls/hr Q0M PRN IV 05/03/16 18:50 06/02/16 18:49 Fentanyl Citrate 250 ml @ 0 mls/hr Q0M PRN IV 05/03/16 19:00 05/17/16 18:59 05/04/16 08:41 20 MLS/HR Rocuronium [place] 100 mg/ Sodium Chloride 100 ml @ 0 mls/hr Q0M PRN IV 05/03/16 19:45 06/02/16 19:44 Norepinephrine Bitartrate 8 mg/ Dextrose 508 ml @ 0 mls/hr Q0M PRN IV 05/03/16 20:02 06/02/16 20:01 Phenylephrine HCl/ Dextrose (Jered-Synephrine Inj/D5W 500ml) 502 ml @ 0 mls/hr Q0M PRN IV 05/03/16 20:02 06/02/16 20:01 Insulin Aspart SLIDING SCALE HS PA 05/04/16 08:00 06/03/16 07:59 Insulin Human Regular 250 units/ Sodium Chloride 252.5 ml @ 0 mls/hr DAILY@1130 IV 05/03/16 22:30 06/02/16 22:29 05/03/16 22:58 4.6 MLS/HR Famotidine/ Dextrose (Pepcid IV Inj/ D5 100ml) 102 ml @ 200 mls/hr Q12H IV 05/04/16 09:00 06/03/16 08:44 05/04/16 09:10 200 MLS/HR I & O: 24-Hour Column 05/04/16 08:00 Intake Total 5046 ml Output Total 2970 ml Balance 2076 ml Vital Signs: Date Time Temp Pulse Resp B/P Pulse Ox O2 Delivery O2 Flow Rate FiO2 05/04/16 10:00 93 13 115/60 98 Mechanical Ventilator 50 05/04/16 08:07 60 05/04/16 08:07 37.1 93 16 100/51 94 Mechanical Ventilator 60 84/65 05/04/16 08:07 95 Mechanical Ventilator 60 05/04/16 08:05 30 05/04/16 06:00 36.5 95 28 108/56 97 05/04/16 05:59 96 29 104/53 97 05/04/16 05:44 95 33 111/56 98 05/04/16 05:29 95 10 103/52 97 05/04/16 05:15 60 05/04/16 05:14 98 25 105/51 96 05/04/16 05:00 96 15 116/55 97 05/04/16 04:43 96 16 98/64 96 05/04/16 04:29 97 19 103/50 96 05/04/16 04:14 97 18 100/49 98 05/04/16 04:14 97 18 100/49 98 05/04/16 04:02 70 05/04/16 04:02 99 Mechanical Ventilator 60 05/04/16 04:00 96 15 107/52 99 05/04/16 04:00 96 15 107/52 99 05/04/16 03:58 96 15 113/70 98 05/04/16 03:58 96 15 113/70 98 05/04/16 03:43 98 16 94/66 98 05/04/16 03:43 98 16 94/66 98 05/04/16 03:29 100 16 107/53 97 05/04/16 03:29 100 16 107/53 97 05/04/16 03:14 101 16 105/51 98 05/04/16 03:14 101 16 105/51 98 05/04/16 03:00 100 16 104/51 98 05/04/16 03:00 100 16 104/51 98 05/04/16 02:29 37.2 102 31 102/51 97 106/71 05/04/16 02:28 70 05/04/16 02:09 104 18 112/59 98 05/04/16 02:00 105 16 118/89 98 106/71 05/04/16 01:59 105 16 106/79 98 05/04/16 01:49 104 16 114/86 98 05/04/16 01:39 105 16 104/77 99 05/04/16 01:29 104 17 112/94 99 05/04/16 01:19 105 17 112/97 98 05/04/16 01:19 105 17 112/97 98 05/04/16 01:17 05/04/16 01:09 105 18 104/79 98 05/04/16 01:09 105 18 104/79 98 05/04/16 01:00 103 17 100/70 98 05/04/16 01:00 103 17 100/70 98 05/04/16 00:39 102 18 92/50 99 05/04/16 00:29 102 18 107/54 99 05/04/16 00:25 70 05/04/16 00:25 99 Mechanical Ventilator 70 05/04/16 00:18 104 20 110/62 99 05/04/16 00:08 102 19 106/63 100 05/04/16 00:00 102 19 98/50 100 05/03/16 23:58 104 20 106/59 100 05/03/16 23:48 104 20 103/59 100 05/03/16 23:38 104 18 107/61 100 05/03/16 23:35 70 05/03/16 23:28 106 20 109/70 100 05/03/16 23:18 107 20 96/55 100 05/03/16 23:08 106 20 98/50 100 05/03/16 23:00 104 20 85/44 100 05/03/16 22:58 104 19 94/50 100 05/03/16 22:49 104 19 86/42 99 05/03/16 22:38 109 25 135/100 100 05/03/16 22:29 96 16 104/49 100 05/03/16 22:19 96 30 104/53 100 05/03/16 22:08 98 30 103/53 100 05/03/16 22:00 102 30 100/54 100 05/03/16 22:00 102 30 100/54 100 05/03/16 21:48 108 30 91/53 100 05/03/16 21:38 115 30 87/50 100 05/03/16 21:30 123 30 78/41 99 05/03/16 21:28 124 30 75/45 99 05/03/16 21:19 130 30 80/42 98 05/03/16 21:09 141 12 157/80 99 05/03/16 20:59 135 14 166/110 100 05/03/16 20:49 129 12 104/47 100 05/03/16 20:38 130 12 107/54 100 05/03/16 20:30 129 14 94/58 99 05/03/16 20:19 129 22 119/53 100 05/03/16 20:09 129 24 136/73 100 05/03/16 20:09 98 Mechanical Ventilator 100 05/03/16 19:58 125 22 81/47 99 05/03/16 19:49 130 24 91/45 99 05/03/16 19:38 140 29 129/86 98 05/03/16 19:30 139 28 185/105 98 05/03/16 19:28 130 24 134/92 98 05/03/16 19:19 125 14 114/75 97 05/03/16 19:09 151 30 213/137 99 05/03/16 19:05 130 12 116/83 98 Mechanical Ventilator 100 05/03/16 18:55 141 12 177/121 98 Mechanical Ventilator 100 05/03/16 18:50 100 05/03/16 18:45 90 12 160/90 99 Mechanical Ventilator 100 05/03/16 17:20 130 22 100 Mask 10 110/41 05/03/16 17:16 130 22 85/73 100 Mask 10 05/03/16 17:08 124 22 97/48 100 Mask 10 05/03/16 17:06 120 22 88/58 100 Mask 10 05/03/16 17:04 120 22 108/49 100 Mask 10 05/03/16 17:00 122 22 97/58 100 Mask 10 05/03/16 16:55 120 22 92/68 100 Mask 10 05/03/16 16:50 98 22 123/95 100 Mask 10 05/03/16 16:45 104 22 132/74 100 Mask 10 05/03/16 16:40 110 22 101/75 100 Mask 10 05/03/16 16:35 133 22 79/53 100 Mask 10 05/03/16 16:29 129 22 79/50 100 Mask 10 05/03/16 16:25 124 22 74/50 100 Mask 10 05/03/16 16:21 115 22 55/37 100 Mask 10 05/03/16 16:19 117 20 70/47 100 Mask 10 05/03/16 16:15 120 20 81/60 100 Mask 10 05/03/16 16:10 109 20 65/52 100 Mask 10 05/03/16 16:05 101 16 99/69 100 Mask 10 05/03/16 16:00 105 16 98/60 100 Mask 10 05/03/16 15:48 102 16 78/50 100 Mask 10 05/03/16 15:40 100 16 54/41 100 Mask 10 05/03/16 15:33 105 16 80/50 100 Mask 10 05/03/16 15:30 95 16 87/48 100 Mask 10 05/03/16 15:25 97 16 65/42 100 Mask 10 05/03/16 15:20 100 16 108/54 100 Mask 10 05/03/16 15:15 93 16 74/47 100 Mask 10 05/03/16 15:12 93 16 70/48 100 Mask 10 05/03/16 15:10 100 16 69/48 98 Mask 10 05/03/16 15:05 106 16 143/54 97 Mask 10 05/03/16 14:55 99 16 145/81 97 Mask 10 05/03/16 14:45 36.5 98 16 178/85 95 Mask 10 Laboratory Results: Last 24 Hours Test 05/03/16 15:33 05/03/16 16:25 05/03/16 20:09 05/03/16 20:15 Bedside Glucose 263 mg/dl White Blood Count 13.20 K/uL 16.15 K/uL Red Blood Count 3.27 M/uL 4.43 M/uL Hemoglobin 10.1 g/dL 13.2 g/dL Hematocrit 29.6 % 38.3 % Mean Corpuscular Volume 90.5 fL 86.5 fL Mean Corpuscular Hemoglobin 30.9 pg 29.8 pg Mean Corpuscular Hemoglobin Concent 34.1 g/dl 34.5 g/dl RDW Standard Deviation 42.1 fL 43.7 fL RDW Coefficient of Variation 12.8 % 13.8 % Platelet Count 233 K/uL 137 K/uL Mean Platelet Volume 10.7 fL 10.7 fL Sodium Level 142 mmol/L 140 mmol/L Potassium Level 4.5 mmol/L 5.2 mmol/L Chloride Level 106 mmol/L 104 mmol/L Carbon Dioxide Level 24 mmol/L 24 mmol/L Anion Gap 12.0 mmol/L 12.0 mmol/L Blood Urea Nitrogen 16 mg/dl 17 mg/dl Creatinine 1.40 mg/dl 1.60 mg/dl Est Creatinine Clear Calc Drug Dose 84.5 ml/min 73.9 ml/min Estimated GFR () 68.9 58.6 Estimated GFR (Non- 59.4 50.6 BUN/Creatinine Ratio 11.1 10.4 Random Glucose 328 mg/dl 442 mg/dl Calcium Level 7.9 mg/dl 6.9 mg/dl Total Creatine Kinase 149 U/L Creatine Kinase MB 0.9 ng/ml Creatine Kinase MB Ratio 0.6 Troponin I < 0.015 ng/ml Beta-Hydroxybutyric Acid 5.01 mg/dL 3.43 mg/dL Bedside Hemoglobin 12.2 g/dl Bedside Hematocrit 36 % Bedside Blood Gas pH (LAB) 7.16 Bedside Blood Gas pCO2 (LAB) 57 mmHg Bedside Blood Gas pO2 (LAB) 154 mmHg Bedside Blood Gas HCO3 (LAB) 20 meq/L Bedside Blood Gas Total CO2 22 mEq/l Bedside Blood Gas Base Excess (LAB) -9.0 meq/L Bedside Blood Gas O2 Saturation 99.0 % Bedside Sodium 135 mEq/L Bedside Potassium 5.6 mEq/L Nucleated RBC Absolute Count (auto) 0.02 K/uL Nucleated Red Blood Cells % 0.1 % Lactic Acid Level 7.3 mmol/L Total Bilirubin 0.8 mg/dl Aspartate Amino Transf (AST/SGOT) 32 U/L Alanine Aminotransferase (ALT/SGPT) 56 U/L Alkaline Phosphatase 58 U/L Total Protein 5.1 gm/dl Albumin 2.8 gm/dl Globulin 2.3 gm/dl Albumin/Globulin Ratio 1.2 Test 05/03/16 20:26 05/03/16 21:11 05/03/16 22:33 05/04/16 00:11 Prothrombin Time 12.4 SECONDS Prothromb Time International Ratio 1.2 Activated Partial Thromboplast Time 26.1 SECONDS Partial Thromboplastin Ratio 1.0 Bedside Glucose 370 mg/dl Blood Gas Sample Site Art Line Bedside Blood Gas pH (LAB) 7.30 Bedside Blood Gas pCO2 (LAB) 47 mmHg Bedside Blood Gas pO2 (LAB) 192 mmHg Bedside Blood Gas HCO3 (LAB) 23 meq/L Bedside Blood Gas Total CO2 25 mEq/l Bedside Blood Gas Base Excess (LAB) -3.0 meq/L Bedside Blood Gas O2 Saturation 100.0 % Eric Test NA Oxygen Delivery Device Ventilator Bedside Oxygen Rate (breaths/min) 30 Blood Gas Minute Ventilation 15 Bedside FiO2 100 % Blood Gas Tidal Volume 550 Blood Gas PEEP 5 Bedside Glucose (other) 412 mg/dl Test 05/04/16 00:29 05/04/16 01:04 05/04/16 02:07 05/04/16 02:21 White Blood Count 14.47 K/uL Red Blood Count 3.74 M/uL Hemoglobin 11.3 g/dL Hematocrit 31.9 % Mean Corpuscular Volume 85.3 fL Mean Corpuscular Hemoglobin 30.2 pg Mean Corpuscular Hemoglobin Concent 35.4 g/dl Platelet Count 165 K/uL Mean Platelet Volume 10.8 fL Neutrophils (%) (Auto) 82.8 % Lymphocytes (%) (Auto) 5.2 % Monocytes (%) (Auto) 11.1 % Eosinophils (%) (Auto) 0.0 % Basophils (%) (Auto) 0.1 % Neutrophils # (Auto) 11.98 K/uL Lymphocytes # (Auto) 0.75 K/uL Monocytes # (Auto) 1.61 K/uL Eosinophils # (Auto) 0.00 K/uL Basophils # (Auto) 0.01 K/uL RDW Standard Deviation 43.8 fL RDW Coefficient of Variation 14.0 % Immature Granulocyte % (Auto) 0.8 % Immature Granulocyte # (Auto) 0.12 K/uL Sodium Level 140 mmol/L Potassium Level 4.8 mmol/L Chloride Level 102 mmol/L Carbon Dioxide Level 27 mmol/L Anion Gap 11.0 mmol/L Blood Urea Nitrogen 17 mg/dl Creatinine 1.50 mg/dl Est Creatinine Clear Calc Drug Dose 78.9 ml/min Estimated GFR () 63.3 Estimated GFR (Non- 54.7 BUN/Creatinine Ratio 11.5 Random Glucose 390 mg/dl Calcium Level 6.8 mg/dl Phosphorus Level 3.0 mg/dl Magnesium Level 1.5 mg/dl Beta-Hydroxybutyric Acid 1.59 mg/dL Bedside Glucose (other) 381 mg/dl 356 mg/dl Ionized Calcium 0.99 mmol/l Test 05/04/16 03:11 05/04/16 04:11 05/04/16 05:26 05/04/16 06:20 Bedside Glucose (other) 333 mg/dl 310 mg/dl 282 mg/dl Estimated Average Glucose 137 mg/dl Hemoglobin A1c 6.4 % Test 05/04/16 06:23 05/04/16 06:30 05/04/16 07:34 05/04/16 09:02 Bedside Glucose (other) 260 mg/dl 232 mg/dl 195 mg/dl White Blood Count 10.08 K/uL Red Blood Count 3.23 M/uL Hemoglobin 9.7 g/dL Hematocrit 27.7 % Mean Corpuscular Volume 85.8 fL Mean Corpuscular Hemoglobin 30.0 pg Mean Corpuscular Hemoglobin Concent 35.0 g/dl RDW Standard Deviation 44.9 fL RDW Coefficient of Variation 14.3 % Platelet Count 160 K/uL Mean Platelet Volume 10.5 fL Prothrombin Time 12.1 SECONDS Prothromb Time International Ratio 1.1 Activated Partial Thromboplast Time 25.9 SECONDS Partial Thromboplastin Ratio 1.0 Sodium Level 144 mmol/L Potassium Level 3.8 mmol/L Chloride Level 108 mmol/L Carbon Dioxide Level 26 mmol/L Anion Gap 10.0 mmol/L Blood Urea Nitrogen 14 mg/dl Creatinine 0.87 mg/dl Est Creatinine Clear Calc Drug Dose 136.0 ml/min Estimated GFR () 119.1 Estimated GFR (Non- 102.8 BUN/Creatinine Ratio 15.5 Random Glucose 215 mg/dl Lactic Acid Level 2.1 mmol/L Calcium Level 6.4 mg/dl Phosphorus Level 2.8 mg/dl Magnesium Level 1.2 mg/dl Test 05/04/16 10:17 05/04/16 11:45 05/04/16 11:46 05/04/16 12:13 Bedside Glucose (other) 171 mg/dl 131 mg/dl
[2016-05-04 13:21] LABS: BUN/CREATININE RATIO 22.4 (10-20); CALCIUM 6.2 mg/dl (8.5-10.1); CREATININE 0.55 mg/dl (0.60-1.40); MAGNESIUM 1.3 mg/dl (1.8-2.4); PHOSPHORUS 2.5 mg/dl (2.5-4.9)
[2016-05-04] MEDS: INSULIN REGULAR 250 UNITS in SODIUM CHLORIDE 0.9% 250ML 250 ML IV SCH (13:23)
[2016-05-04] MEDS ORDERED: MAGNESIUM SULFATE 1GM / D5W 1 GM in PREMIXED IN D5W 100 ML IV ONE (13:30)
[2016-05-04] MEDS: DEXTROSE 50% 50 ML SYR IV PRN (13:35)
[2016-05-04] MEDS ORDERED: POTASSIUM PHOS 3 MMOL/1 ML INFUSION IV STA (14:16)
[2016-05-04] MEDS ORDERED: POTASSIUM PHOSPHATE INJ 9 MMOL in SODIUM CHLORIDE 0.9% 250ML 250 ML IV SCH (14:45)
[2016-05-04] MEDS ORDERED: DEXAMETHASONE INJ 6 MG in SYRINGE 0 ML IV SCH (14:45)
[2016-05-04] MEDS: NORMOSOL R 1,000 ML IV SCH ×2 (14:58→21:29)
[2016-05-04 18:54] LABS: COMPLETE YES; EOS % 0.1 %; HEMATOCRIT 26.3 % (42-52); IG% 0.2 %; LYMPH % 9.6 %; LYMPH ABS # 0.77 K/uL (1.2-3.4); MEAN CELL VOLUME 87.1 fL (80-100); MEAN CORPUSCULAR HEMOGLOBIN 30.1 pg (25-34); MEAN CORPUSCULAR HGB CONC 34.6 g/dl (32-36); MEAN PLATELET VOLUME 9.8 fL (7.4-10.4); MONO % 9.9 %; NEUT % 80.2 %; PLATELET COUNT 115 K/uL (130-400); RED BLOOD COUNT 3.02 M/uL (4.7-6.1); WHITE BLOOD COUNT 8.01 K/uL (4.8-10.8)
[2016-05-04 19:19] LABS: ISTAT ARTERIAL BLOOD GAS HCO3 33 meq/L (19-24); ISTAT ARTERIAL BLOOD GAS PCO2 66 mmHg (35-46); ISTAT ARTERIAL BLOOD GAS PO2 65 mmHg (80-95); ISTAT CARBON DIOXIDE 35 mEq/l (24-31); ISTAT DELIVERY SYSTEM Ventilator; ISTAT FIO2 40 %; ISTAT PEEP 5; ISTAT RATE 10; ISTAT SITE Art Line; VE 6.6; Vt 550
[2016-05-05] VITALS (47 sets, daily range): BP systolic 98–150; BP diastolic 53–81; PULSE 83–114; TEMP 36.8–37.5; O2SAT 91–97
[2016-05-05 00:27] LABS: HEMATOCRIT 24.5 % (42-52); IG% 0.4 %; LYMPH % 9.4 %; LYMPH ABS # 0.76 K/uL (1.2-3.4); MEAN CELL VOLUME 86.3 fL (80-100); MEAN CORPUSCULAR HEMOGLOBIN 29.9 pg (25-34); MEAN CORPUSCULAR HGB CONC 34.7 g/dl (32-36); MEAN PLATELET VOLUME 10.5 fL (7.4-10.4); MONO % 8.4 %; NEUT % 81.8 %; PLATELET COUNT 115 K/uL (130-400); RED BLOOD COUNT 2.84 M/uL (4.7-6.1); WHITE BLOOD COUNT 8.11 K/uL (4.8-10.8)
[2016-05-05 00:53] LABS: INR 1.1 (0.9-1.1); PROTHROMBIN TIME (PATIENT) 11.5 SECONDS (9.0-12.0)
[2016-05-05 00:57] LABS: COMPLETE YES
[2016-05-05 01:04] LABS: BUN/CREATININE RATIO 20.1 (10-20); CALCIUM 6.4 mg/dl (8.5-10.1); CREATININE 0.59 mg/dl (0.60-1.40); MAGNESIUM 1.7 mg/dl (1.8-2.4)
[2016-05-05] MEDS: MIDAZOLAM 125MG/250ML D5W 250 ML IV PRN (03:16)
[2016-05-05 05:42] LABS: HEMATOCRIT 26.3 % (42-52); MEAN CELL VOLUME 86.8 fL (80-100); RED BLOOD COUNT 3.03 M/uL (4.7-6.1); WHITE BLOOD COUNT 9.02 K/uL (4.8-10.8)
[2016-05-05 05:43] LABS: MEAN CORPUSCULAR HGB CONC 34.6 g/dl (32-36); MEAN PLATELET VOLUME 10.6 fL (7.4-10.4); PLATELET COUNT 123 K/uL (130-400)
[2016-05-05 05:59] LABS: INR 1.1 (0.9-1.1); PARTIAL THROMBOPLASTIN RATIO 0.9; PROTHROMBIN TIME (PATIENT) 11.7 SECONDS (9.0-12.0)
[2016-05-05 06:09] LABS: BUN/CREATININE RATIO 20.9 (10-20); CALCIUM 7.4 mg/dl (8.5-10.1); CREATININE 0.64 mg/dl (0.60-1.40); MAGNESIUM 2.1 mg/dl (1.8-2.4); PHOSPHORUS 2.5 mg/dl (2.5-4.9); POTASSIUM 4.3 mmol/L (3.5-5.1)
[2016-05-05] MEDS: INSULIN ASPART 100 UNITS/ML 3 ML PEN SC SCH ×4 (07:44→21:00)
[2016-05-05] MEDS: FAMOTIDINE IV INJ 20 MG in DEXTROSE 5% 100ML 100 ML IV SCH ×2 (07:44→21:50)
--- NOTE | 2016-05-05 07:46 | Surgery Progress Note ---
Surgery Progress Note Date of Service May 05, 2016. Subjective Post OP Day: 2 stable on vent. off pressors. continues to improve clinically. only 40 cc's out of RISHI last shift per nursing Objective Vital Signs: Date Time Temp Pulse Resp B/P Pulse Ox O2 Delivery O2 Flow Rate FiO2 05/05/16 05:21 40 05/05/16 04:41 94 Mechanical Ventilator 40 05/05/16 04:41 40 05/05/16 02:20 40 05/05/16 00:28 83 16 98/58 93 05/05/16 00:22 40 05/05/16 00:22 94 Mechanical Ventilator 40 05/05/16 00:00 84 16 101/58 92 Mechanical Ventilator 40 05/04/16 23:59 84 16 104/60 92 05/04/16 23:29 86 27 107/61 100 05/04/16 23:25 40 05/04/16 23:00 84 16 104/58 93 05/04/16 22:00 88 16 103/57 93 05/04/16 21:59 86 16 99/55 93 05/04/16 21:34 87 16 106/59 93 05/04/16 21:29 88 16 100/55 93 05/04/16 21:00 87 16 101/56 93 05/04/16 20:03 40 05/04/16 20:03 94 Mechanical Ventilator 40 05/04/16 20:00 37.0 92 17 129/73 94 05/04/16 19:59 91 16 113/64 94 05/04/16 19:29 91 16 110/60 94 05/04/16 19:14 40 05/04/16 19:00 94 12 102/-50 93 05/04/16 18:00 93 13 117/64 92 Mechanical Ventilator 40 05/04/16 17:59 92 11 115/63 92 05/04/16 17:50 40 05/04/16 17:30 93 12 114/61 94 05/04/16 17:29 94 14 115/62 94 05/04/16 17:00 93 15 124/67 95 05/04/16 16:59 93 15 136/71 96 05/04/16 16:30 93 13 113/62 96 05/04/16 16:29 93 14 118/64 96 05/04/16 16:00 96 Mechanical Ventilator 50 05/04/16 16:00 50 05/04/16 16:00 93 16 114/60 97 Mechanical Ventilator 50 05/04/16 15:30 36.7 91 13 121/64 99 Mechanical Ventilator 50 05/04/16 15:29 92 13 127/67 99 05/04/16 15:00 90 15 114/56 99 Mechanical Ventilator 50 05/04/16 14:59 90 15 116/61 98 05/04/16 14:45 40 05/04/16 14:30 93 10 85/56 98 Mechanical Ventilator 50 05/04/16 14:29 92 10 85/54 97 05/04/16 14:00 91 10 96/52 98 Mechanical Ventilator 50 05/04/16 13:59 92 10 96/55 98 05/04/16 13:30 94 12 97/55 98 Mechanical Ventilator 50 05/04/16 13:29 93 13 94/53 98 05/04/16 13:00 94 14 106/59 97 05/04/16 12:59 92 23 105/58 97 05/04/16 12:30 94 13 104/57 97 05/04/16 12:29 92 16 101/54 97 05/04/16 12:00 97 Mechanical Ventilator 50 05/04/16 12:00 92 30 117/62 99 05/04/16 12:00 50 05/04/16 11:59 99 27 125/68 97 05/04/16 11:50 40 05/04/16 11:30 93 13 116/61 98 05/04/16 11:29 93 14 114/62 98 05/04/16 11:00 92 29 111/58 99 05/04/16 10:00 93 13 115/60 98 Mechanical Ventilator 50 05/04/16 08:07 60 05/04/16 08:07 37.1 93 16 100/51 94 Mechanical Ventilator 60 84/65 05/04/16 08:07 95 Mechanical Ventilator 60 05/04/16 08:05 30 Physical Exam: RISHI drainage (dramatically decreased. still bloody. 40 cc's last shift per RN) Abdomen: non distended, soft Incision(s): clean, dry, intact Laboratory Results: Results Past 24 Hours Test 05/04/16 09:02 05/04/16 10:17 05/04/16 11:46 05/04/16 12:13 Range/Units Bedside Glucose (other) 195 171 131 70-99 mg/dl White Blood Count 9.00 4.8-10.8 K/uL Red Blood Count 3.15 4.7-6.1 M/uL Hemoglobin 9.4 14.0-18.0 g/dL Hematocrit 26.9 42-52 % Mean Corpuscular Volume 85.4 80-100 fL Mean Corpuscular Hemoglobin 29.8 25-34 pg Mean Corpuscular Hemoglobin Concent 34.9 32-36 g/dl Platelet Count 136 130-400 K/uL Mean Platelet Volume 10.6 7.4-10.4 fL Neutrophils (%) (Auto) 74.4 % Lymphocytes (%) (Auto) 12.1 % Monocytes (%) (Auto) 13.1 % Eosinophils (%) (Auto) 0.0 % Basophils (%) (Auto) 0.0 % Neutrophils # (Auto) 6.69 1.4-6.5 K/uL Lymphocytes # (Auto) 1.09 1.2-3.4 K/uL Monocytes # (Auto) 1.18 0.11-0.59 K/uL Eosinophils # (Auto) 0.00 0-0.5 K/uL Basophils # (Auto) 0.00 0-0.2 K/uL RDW Standard Deviation 45.1 36.4-46.3 fL RDW Coefficient of Variation 14.5 11.5-14.5 % Immature Granulocyte % (Auto) 0.4 % Immature Granulocyte # (Auto) 0.04 0.00-0.02 K/uL Prothrombin Time 11.9 9.0-12.0 SECONDS Prothromb Time International Ratio 1.1 0.9-1.1 Activated Partial Thromboplast Time 27.8 21.0-31.0 SECONDS Partial Thromboplastin Ratio 1.1 Sodium Level 145 136-145 mmol/L Potassium Level 3.3 3.5-5.1 mmol/L Chloride Level 112 98-107 mmol/L Carbon Dioxide Level 26 21-32 mmol/L Anion Gap 7.0 3-11 mmol/L Blood Urea Nitrogen 12 7-18 mg/dl Creatinine 0.55 0.60-1.40 mg/dl Est Creatinine Clear Calc Drug Dose 215.1 ml/min Estimated GFR () 143.8 Estimated GFR (Non- 124.1 BUN/Creatinine Ratio 22.4 10-20 Random Glucose 97 70-99 mg/dl Lactic Acid Level 1.3 0.4-2.0 mmol/L Calcium Level 6.2 8.5-10.1 mg/dl Ionized Calcium 0.92 1.12-1.32 mmol/l Phosphorus Level 2.5 2.5-4.9 mg/dl Magnesium Level 1.3 1.8-2.4 mg/dl Random Cortisol 1.18 mcg/dl Test 05/04/16 13:22 05/04/16 14:38 05/04/16 14:51 05/04/16 16:06 Range/Units Bedside Glucose (other) 92 70-99 mg/dl Random Cortisol 0.99 mcg/dl Bedside Glucose 156 158 70-99 mg/dl Test 05/04/16 16:58 05/04/16 17:59 05/04/16 18:45 05/04/16 19:07 Range/Units Bedside Glucose 121 118 70-99 mg/dl White Blood Count 8.01 4.8-10.8 K/uL Red Blood Count 3.02 4.7-6.1 M/uL Hemoglobin 9.1 14.0-18.0 g/dL Hematocrit 26.3 42-52 % Mean Corpuscular Volume 87.1 80-100 fL Mean Corpuscular Hemoglobin 30.1 25-34 pg Mean Corpuscular Hemoglobin Concent 34.6 32-36 g/dl Platelet Count 115 130-400 K/uL Mean Platelet Volume 9.8 7.4-10.4 fL Neutrophils (%) (Auto) 80.2 % Lymphocytes (%) (Auto) 9.6 % Monocytes (%) (Auto) 9.9 % Eosinophils (%) (Auto) 0.1 % Basophils (%) (Auto) 0.0 % Neutrophils # (Auto) 6.42 1.4-6.5 K/uL Lymphocytes # (Auto) 0.77 1.2-3.4 K/uL Monocytes # (Auto) 0.79 0.11-0.59 K/uL Eosinophils # (Auto) 0.01 0-0.5 K/uL Basophils # (Auto) 0.00 0-0.2 K/uL RDW Standard Deviation 45.9 36.4-46.3 fL RDW Coefficient of Variation 14.5 11.5-14.5 % Immature Granulocyte % (Auto) 0.2 % Immature Granulocyte # (Auto) 0.02 0.00-0.02 K/uL Magnesium Level 1.8 1.8-2.4 mg/dl Blood Gas Sample Site Art Line Bedside Blood Gas pH (LAB) 7.30 7.35-7.45 Bedside Blood Gas pCO2 (LAB) 66 35-46 mmHg Bedside Blood Gas pO2 (LAB) 65 80-95 mmHg Bedside Blood Gas HCO3 (LAB) 33 19-24 meq/L Bedside Blood Gas Total CO2 35 24-31 mEq/l Bedside Blood Gas Base Excess (LAB) 6.0 -9-1.8 meq/L Bedside Blood Gas O2 Saturation 89.0 90-95 % Eric Test NA Oxygen Delivery Device Ventilator Bedside Oxygen Rate (breaths/min) 10 Blood Gas Minute Ventilation 6.6 Bedside FiO2 40 % Blood Gas Tidal Volume 550 Blood Gas PEEP 5 Test 05/04/16 19:16 05/04/16 20:13 05/04/16 22:08 05/04/16 23:59 Range/Units Bedside Glucose 135 141 150 147 70-99 mg/dl Test 05/05/16 00:19 05/05/16 02:14 05/05/16 05:18 05/05/16 05:54 Range/Units White Blood Count 8.11 9.02 4.8-10.8 K/uL Red Blood Count 2.84 3.03 4.7-6.1 M/uL Hemoglobin 8.5 9.1 14.0-18.0 g/dL Hematocrit 24.5 26.3 42-52 % Mean Corpuscular Volume 86.3 86.8 80-100 fL Mean Corpuscular Hemoglobin 29.9 30.0 25-34 pg Mean Corpuscular Hemoglobin Concent 34.7 34.6 32-36 g/dl Platelet Count 115 123 130-400 K/uL Mean Platelet Volume 10.5 10.6 7.4-10.4 fL Neutrophils (%) (Auto) 81.8 % Lymphocytes (%) (Auto) 9.4 % Monocytes (%) (Auto) 8.4 % Eosinophils (%) (Auto) 0.0 % Basophils (%) (Auto) 0.0 % Neutrophils # (Auto) 6.64 1.4-6.5 K/uL Lymphocytes # (Auto) 0.76 1.2-3.4 K/uL Monocytes # (Auto) 0.68 0.11-0.59 K/uL Eosinophils # (Auto) 0.00 0-0.5 K/uL Basophils # (Auto) 0.00 0-0.2 K/uL RDW Standard Deviation 45.5 45.7 36.4-46.3 fL RDW Coefficient of Variation 14.3 14.5 11.5-14.5 % Immature Granulocyte % (Auto) 0.4 % Immature Granulocyte # (Auto) 0.03 0.00-0.02 K/uL Red Blood Cell Morphology Unremarkable Prothrombin Time 11.5 11.7 9.0-12.0 SECONDS Prothromb Time International Ratio 1.1 1.1 0.9-1.1 Activated Partial Thromboplast Time 24.7 23.5 21.0-31.0 SECONDS Partial Thromboplastin Ratio 1.0 0.9 Sodium Level 142 140 136-145 mmol/L Potassium Level 4.0 4.3 3.5-5.1 mmol/L Chloride Level 105 102 98-107 mmol/L Carbon Dioxide Level 30 33 21-32 mmol/L Anion Gap 7.0 5.0 3-11 mmol/L Blood Urea Nitrogen 12 13 7-18 mg/dl Creatinine 0.59 0.64 0.60-1.40 mg/dl Est Creatinine Clear Calc Drug Dose 200.5 184.8 ml/min Estimated GFR () 139.7 135.1 Estimated GFR (Non- 120.6 116.6 BUN/Creatinine Ratio 20.1 20.9 10-20 Random Glucose 132 121 70-99 mg/dl Calcium Level 6.4 7.4 8.5-10.1 mg/dl Ionized Calcium 1.05 1.12-1.32 mmol/l Magnesium Level 1.7 2.1 1.8-2.4 mg/dl Bedside Glucose 139 126 70-99 mg/dl Phosphorus Level 2.5 2.5-4.9 mg/dl Test 05/05/16 06:15 Range/Units Ionized Calcium 1.04 1.12-1.32 mmol/l Assessment & Plan POD 2 doing much better clinically plan extubation today off pressors keep rishi/monitor H/H can start liquids after extubation. 1. acute appendicitis s/p lap appy 2. post op port site bleeding taken back to OR last night and bleeding controlled continues to have higher than expected RISHI output. has dramatically slowed down now since receiving platelets will monitor closely. Hg still > 11 3. hypotensive/tachycardic ? etiology hg ok. good urine OP still requiring pressors monitor closely 3. DM on insulin drip
--- NOTE | 2016-05-05 08:31 | DIAGNOSTIC IMAGING REPORT ---
CHEST ONE VIEW PORTABLE HISTORY: Respiratory failure. intubation COMPARISON: Chest 05/03/2016. FINDINGS: The nasogastric tube terminates in the distal stomach. Right jugular catheter terminates in the distal right brachiocephalic vein. Endotracheal tube terminates 3 cm from the anali. No pneumothorax. Mild elevation of the right hemidiaphragm. Progressive density along the right mediastinal border with right-sided volume loss. There are left basilar linear densities consistent with atelectasis. The heart remains enlarged. IMPRESSION: 1. Satisfactory support line placement. 2. Progressive density along the right mediastinal border with right-sided volume loss. This may be positional or related to atelectasis/consolidation within the right medial lung. Follow-up chest x-ray is recommended to ensure resolution. 3. Left basilar densities persist. Electronically signed by: Tarun Serra M.D. 05/05/2016 8:29 AM Dictated Date/Time: 05/05/2016 8:26 AM
[2016-05-05] MEDS ORDERED: FUROSEMIDE INJ 20 MG in SYRINGE 0 ML IV ONE (08:45)
[2016-05-05] MEDS: HEPARIN SOD 5000 UNIT/0.5 ML CARP SQ SCH ×2 (09:56→21:51)
[2016-05-05] MEDS: NORMOSOL R 1,000 ML IV SCH (09:59)
--- NOTE | 2016-05-05 10:52 | Critical Care Progress Note ---
Critical Care Progress Note Date of Service May 05, 2016. Attending Dr. Wild Subjective No issues overnight Remains sedated, unable to provide history Stable this morning notes he looks much better Objective Physical Exam: General: Comfortable, no apparent distress Eyes: PERRL, does not follow fingers ENT: Mucous membranes moist, ET tube in place Neck: No JVD, no lymphadenopathy, no thyromegaly Lungs: coarse breath sounds bilaterally; no wheezing Heart: S1 and S2 with no added sounds or murmurs Abdomen: Soft, incisions intact, no drainage, RYDER drain in situ with maciel blood , diminished bowel sounds Extremities: No pitting edema, no asymmetric swelling, no calf pain or tenderness, SCDs in place Neuro: RASS -4, patient does not respond to commands, turns head to light stimulation Assessment & Plan 46 year old male day 2 of ICU admission for post-operative bleeding after appendectomy. Our plan for him is as follows: Neurological - RASS score - 4; turns eyes to light; does not withdrawal to painful stimuli - Currently on Fentanyl and Midazolam sedation Plan to wean today with view to extubate Respiratory - Remains on assist control with the following settings: AC mode, RR 16, FiO2 40 %, Tidal Volume 500 Based on an ideal body weight of 70 kg, Tidal volumes are currently 7 ml/kg Primary respiratory acidosis with inadequate metabolic compensation Attempt CPAP this morning; ABG on CPAP shows he following: pH 3.12, pCO2 67, pO2 59, HCO3 33.9; Normal Anion Gap (unlikely to have underlying metabolic acidosis) Review of CXR suggests possible fluid overload component; will attempt diuresis and repeat ABG to re-assess respiratory status Moderate ARDS PaO2/FiO2 ratio calculated (PaO2 59 / FiO2 40% --> 147): CXR today: right-sided volume loss with with persistent left basilar densities - Goal today is to extubate but need to re-assess respiratory status after diuresis Also awaiting improvement in patient's neurological status Cardiovascular - Currently NSR on monitor; rate 80s - Off vasopressors: sBP 100 / dBP 50-60 - Respiratory variation noted on BP tracing suggesting that he would remain fluid responsive, possibly still mildly intravascularly depleted and 3rd spacing to peripheral tissues and lungs Will diurese with 20 mg Lasix to assist with offloading pulmonary congestion which may be contributing to persistence of respiratory acidosis Gastrointestinal Status post-appendectomy: - patient hemodynamically stable at this time; serial Hb remains stable at 9 - Total RYDER drain output 1270 ml; bleeding tapering off; 40 ml out of drain today Nutrition: - OG tube in place on low intermittent suction: Draining bilious fluid If extubated, anticipate resuming feeds If remains intubated, will require initiation of trickle feeds by OG tube GI prophylaxis: Famotidine BID Genitourinary VU - Resolving but UO remains < 0.5 ml/hr; creatinine improved to 0.6 - UO gradually improving; today is 0.32 ml/kg/hr (was 0.17 ml/kg/hr yesterday) - According to RIFLE criteria, patient would be categorized as still being 'At Risk' for acute kidney injury Metabolic Acidosis - Resolved; reviewed ABG this morning, as above show primary respiratory alkalosis with inadequate metabolic compensation Electrolytes - Na 140; K 4.3; Cl 102; Bicarb 33; BUN 1.3; Cr 0.6 - Mg 2.4 - Phos 2.5 - ical 1.04 --> will repeat 1 g Ca Gluconate today IV fluids: Continue Normasol at 75 ml/hr Endocrine Type 2 Diabetes Mellitus - Due to acute stress reaction - HbA1c 6.4 - Hold home meds - Remains on insulin drip; BSG well controlled at 118-158; most recent BSG 139 - Patient did have reduce random cortisol for which he received stress dose of Decadron Stop steroids today Hematologic Acute Blood Loss Anemia - Patient received the following blood products between 05/03 and 05/04: - 6 units PRBC; 2 units FFP; 2 units Cryoprecipitate; 1 units Platelets - Patient Hb stable in the 9s; noted to have arrived with Hb > 11, consistent with acute blood loss DVT prophylaxis - Patient is hemodynamically stable; does have tapering bleeding from RYDER site - Patient high risk of DVT due to prolonged immobility - Will start UFH at 5000 s.c BID Infectious Disease - WBC 9; afebrile overnight - Unasyn discontinued IV access - 20 G peripheral line in the left antecubital - 18 G peripheral line in left wrist - Right IJ double lumen; introducer catheter --> Will discontinue today as patient has peripheral access and not requiring vasopressors at this time - Right femoral arterial line Code Status - Level I Code Disposition - ICU: patient remains on ventilatory support requiring continued stay in the ICU at this time Resident Physician Supervision Note: Dr. Bishop was resident physician during care of patient. I separately evaluated patient and did history and exam. I discussed the case with the resident and generally agree with the findings and plan. Attempting to gently diurese the patient, I believe the respiratory insufficiency is secondary to high sedation requirements in combination with pulmonary edema. For able to remove some fluid from the parenchyma lungs and improve his oxygenation anticipate we will be able to wean sedation rapidly and have a successful extubation today. There appears to be no active bleeding patient hasn't high risk for venous thromboembolism restarting chemical prophylaxis today. Removed large bore central venous access. I have personally spent 90 minutes of critical care time in the direct management of this patient. This is a life/limb threatening event. This includes time spent evaluating patient, direct bedside care, chart review, placing orders, interpretation of diagnostic studies, discussion with consultants, patient, and family members, as well as other required patient management activities. This time is exclusive of all separately billable procedures, and teaching time and separate from and in addition to any other critical care service time. Documented By: Jimmy Wild DO Data Medications: Current Inpatient Medications Medications (Trade) Dose Ordered Sig/Prabhjot Route Start Time Stop Time Status Last Admin Dose Admin Ondansetron HCl (Zofran Inj) 4 mg Q4H PRN IV 05/03/16 10:00 06/02/16 09:59 Morphine Sulfate (MoRPHine SULFATE INJ) 4 mg Q1H PRN IV 05/03/16 10:00 05/17/16 09:59 Glucose (Glucose 40% Gel) 15-30 GRAMS 15 GRAMS... UD PRN PO 05/03/16 10:00 06/02/16 09:59 Glucose (Glucose Chew Tab) 4-8 Tablets 4 Tabl... UD PRN PO 05/03/16 10:00 06/02/16 09:59 Dextrose (Dextrose 50% 50ML Syringe) 25-50ML OF 50% DW IV FOR... UD PRN IV 05/03/16 10:00 06/02/16 09:59 05/04/16 13:35 25 ML Glucagon (Glucagon Inj) 1 mg UD PRN SQ 05/03/16 10:00 06/02/16 09:59 Miscellaneous (Iv Fluids Completed) 1 ea PRN PRN N/A 05/03/16 11:00 05/03/17 10:59 Acetaminophen/ Hydrocodone Bitart ([place] 5/325 Tab) 1 tab Q4H PRN PO 05/03/16 14:45 05/17/16 14:44 Acetaminophen/ Hydrocodone Bitart 2 tab 2 tab Q4H PRN PO 05/03/16 14:45 05/17/16 14:44 Midazolam HCl 250 ml @ 0 mls/hr Q0M PRN IV 05/03/16 18:50 06/02/16 18:49 05/05/16 03:16 8 MLS/HR Fentanyl Citrate 250 ml @ 0 mls/hr Q0M PRN IV 05/03/16 19:00 05/17/16 18:59 05/04/16 23:37 20 MLS/HR Rocuronium Cut Off 100 mg/ Sodium Chloride 100 ml @ 0 mls/hr Q0M PRN IV 05/03/16 19:45 06/02/16 19:44 Norepinephrine Bitartrate 8 mg/ Dextrose 508 ml @ 0 mls/hr Q0M PRN IV 05/03/16 20:02 06/02/16 20:01 Phenylephrine HCl/ Dextrose (Jered-Synephrine Inj/D5W 500ml) 502 ml @ 0 mls/hr Q0M PRN IV 05/03/16 20:02 06/02/16 20:01 Insulin Aspart [facility] 05/04/16 08:00 06/03/16 07:59 Insulin Human Regular 250 units/ Sodium Chloride 252.5 ml @ 0 mls/hr DAILY@1130 IV 05/03/16 22:30 06/02/16 22:29 05/04/16 13:23 11 MLS/HR Famotidine 20 mg/ Dextrose 102 ml @ 200 mls/hr Q12H IV 05/04/16 09:00 06/03/16 08:44 05/05/16 07:44 200 MLS/HR Parenteral Electrolyte Solution (Normosol R) 1,000 ml @ 75 mls/hr [id number] IV 05/04/16 14:30 06/03/16 14:29 05/05/16 09:59 75 MLS/HR Heparin Sodium (Porcine) (Heparin Sq 5000 Unit/0.5ml) 5,000 unit Q12 SQ 05/05/16 09:00 06/04/16 08:59 05/05/16 09:56 5,000 UNIT I & O: 24-Hour Column 05/05/16 08:00 Intake Total 5212 ml Output Total 1860 ml Balance 3352 ml Vital Signs: Date Time Temp Pulse Resp B/P Pulse Ox O2 Delivery O2 Flow Rate FiO2 05/05/16 08:15 40 05/05/16 08:00 92 Mechanical Ventilator 40 05/05/16 08:00 40 05/05/16 08:00 99 25 136/75 92 146/72 05/05/16 07:58 37.1 89 21 146/72 91 Mechanical Ventilator 40 05/05/16 07:30 88 15 123/64 93 05/05/16 07:29 88 14 121/64 93 05/05/16 07:00 83 16 113/61 92 05/05/16 05:21 40 05/05/16 04:41 94 Mechanical Ventilator 40 05/05/16 04:41 40 05/05/16 02:20 40 05/05/16 00:28 83 16 98/58 93 05/05/16 00:22 40 05/05/16 00:22 94 Mechanical Ventilator 40 05/05/16 00:00 84 16 101/58 92 Mechanical Ventilator 40 05/04/16 23:59 84 16 104/60 92 05/04/16 23:29 86 27 107/61 100 05/04/16 23:25 40 05/04/16 23:00 84 16 104/58 93 05/04/16 22:00 88 16 103/57 93 05/04/16 21:59 86 16 99/55 93 05/04/16 21:34 87 16 106/59 93 05/04/16 21:29 88 16 100/55 93 05/04/16 21:00 87 16 101/56 93 05/04/16 20:03 40 05/04/16 20:03 94 Mechanical Ventilator 40 05/04/16 20:00 37.0 92 17 129/73 94 05/04/16 19:59 91 16 113/64 94 05/04/16 19:29 91 16 110/60 94 05/04/16 19:14 40 05/04/16 19:00 94 12 102/-50 93 05/04/16 18:00 93 13 117/64 92 Mechanical Ventilator 40 05/04/16 17:59 92 11 115/63 92 05/04/16 17:50 40 05/04/16 17:30 93 12 114/61 94 05/04/16 17:29 94 14 115/62 94 05/04/16 17:00 93 15 124/67 95 05/04/16 16:59 93 15 136/71 96 05/04/16 16:30 93 13 113/62 96 05/04/16 16:29 93 14 118/64 96 05/04/16 16:00 96 Mechanical Ventilator 50 05/04/16 16:00 50 05/04/16 16:00 93 16 114/60 97 Mechanical Ventilator 50 05/04/16 15:30 36.7 91 13 121/64 99 Mechanical Ventilator 50 05/04/16 15:29 92 13 127/67 99 05/04/16 15:00 90 15 114/56 99 Mechanical Ventilator 50 05/04/16 14:59 90 15 116/61 98 05/04/16 14:45 40 05/04/16 14:30 93 10 85/56 98 Mechanical Ventilator 50 05/04/16 14:29 92 10 85/54 97 05/04/16 14:00 91 10 96/52 98 Mechanical Ventilator 50 05/04/16 13:59 92 10 96/55 98 05/04/16 13:30 94 12 97/55 98 Mechanical Ventilator 50 05/04/16 13:29 93 13 94/53 98 05/04/16 13:00 94 14 106/59 97 05/04/16 12:59 92 23 105/58 97 05/04/16 12:30 94 13 104/57 97 05/04/16 12:29 92 16 101/54 97 05/04/16 12:00 97 Mechanical Ventilator 50 05/04/16 12:00 92 30 117/62 99 05/04/16 12:00 50 05/04/16 11:59 99 27 125/68 97 05/04/16 11:50 40 05/04/16 11:30 93 13 116/61 98 05/04/16 11:29 93 14 114/62 98 05/04/16 11:00 92 29 111/58 99 Laboratory Results: Last 24 Hours Test 05/04/16 11:46 05/04/16 12:13 05/04/16 13:22 05/04/16 14:38 Bedside Glucose (other) 131 mg/dl 92 mg/dl White Blood Count 9.00 K/uL Red Blood Count 3.15 M/uL Hemoglobin 9.4 g/dL Hematocrit 26.9 % Mean Corpuscular Volume 85.4 fL Mean Corpuscular Hemoglobin 29.8 pg Mean Corpuscular Hemoglobin Concent 34.9 g/dl Platelet Count 136 K/uL Mean Platelet Volume 10.6 fL Neutrophils (%) (Auto) 74.4 % Lymphocytes (%) (Auto) 12.1 % Monocytes (%) (Auto) 13.1 % Eosinophils (%) (Auto) 0.0 % Basophils (%) (Auto) 0.0 % Neutrophils # (Auto) 6.69 K/uL Lymphocytes # (Auto) 1.09 K/uL Monocytes # (Auto) 1.18 K/uL Eosinophils # (Auto) 0.00 K/uL Basophils # (Auto) 0.00 K/uL RDW Standard Deviation 45.1 fL RDW Coefficient of Variation 14.5 % Immature Granulocyte % (Auto) 0.4 % Immature Granulocyte # (Auto) 0.04 K/uL Prothrombin Time 11.9 SECONDS Prothromb Time International Ratio 1.1 Activated Partial Thromboplast Time 27.8 SECONDS Partial Thromboplastin Ratio 1.1 Sodium Level 145 mmol/L Potassium Level 3.3 mmol/L Chloride Level 112 mmol/L Carbon Dioxide Level 26 mmol/L Anion Gap 7.0 mmol/L Blood Urea Nitrogen 12 mg/dl Creatinine 0.55 mg/dl Est Creatinine Clear Calc Drug Dose 215.1 ml/min Estimated GFR () 143.8 Estimated GFR (Non- 124.1 BUN/Creatinine Ratio 22.4 Random Glucose 97 mg/dl Lactic Acid Level 1.3 mmol/L Calcium Level 6.2 mg/dl Ionized Calcium 0.92 mmol/l Phosphorus Level 2.5 mg/dl Magnesium Level 1.3 mg/dl Random Cortisol 1.18 mcg/dl 0.99 mcg/dl Test 05/04/16 14:51 05/04/16 16:06 05/04/16 16:58 05/04/16 17:59 Bedside Glucose 156 mg/dl 158 mg/dl 121 mg/dl 118 mg/dl Test 05/04/16 18:45 05/04/16 19:07 05/04/16 19:16 05/04/16 20:13 White Blood Count 8.01 K/uL Red Blood Count 3.02 M/uL Hemoglobin 9.1 g/dL Hematocrit 26.3 % Mean Corpuscular Volume 87.1 fL Mean Corpuscular Hemoglobin 30.1 pg Mean Corpuscular Hemoglobin Concent 34.6 g/dl Platelet Count 115 K/uL Mean Platelet Volume 9.8 fL Neutrophils (%) (Auto) 80.2 % Lymphocytes (%) (Auto) 9.6 % Monocytes (%) (Auto) 9.9 % Eosinophils (%) (Auto) 0.1 % Basophils (%) (Auto) 0.0 % Neutrophils # (Auto) 6.42 K/uL Lymphocytes # (Auto) 0.77 K/uL Monocytes # (Auto) 0.79 K/uL Eosinophils # (Auto) 0.01 K/uL Basophils # (Auto) 0.00 K/uL RDW Standard Deviation 45.9 fL RDW Coefficient of Variation 14.5 % Immature Granulocyte % (Auto) 0.2 % Immature Granulocyte # (Auto) 0.02 K/uL Magnesium Level 1.8 mg/dl Blood Gas Sample Site Art Line Bedside Blood Gas pH (LAB) 7.30 Bedside Blood Gas pCO2 (LAB) 66 mmHg Bedside Blood Gas pO2 (LAB) 65 mmHg Bedside Blood Gas HCO3 (LAB) 33 meq/L Bedside Blood Gas Total CO2 35 mEq/l Bedside Blood Gas Base Excess (LAB) 6.0 meq/L Bedside Blood Gas O2 Saturation 89.0 % Eric Test NA Oxygen Delivery Device Ventilator Bedside Oxygen Rate (breaths/min) 10 Blood Gas Minute Ventilation 6.6 Bedside FiO2 40 % Blood Gas Tidal Volume 550 Blood Gas PEEP 5 Bedside Glucose 135 mg/dl 141 mg/dl Test 05/04/16 22:08 05/04/16 23:59 05/05/16 00:19 05/05/16 02:14 Bedside Glucose 150 mg/dl 147 mg/dl 139 mg/dl White Blood Count 8.11 K/uL Red Blood Count 2.84 M/uL Hemoglobin 8.5 g/dL Hematocrit 24.5 % Mean Corpuscular Volume 86.3 fL Mean Corpuscular Hemoglobin 29.9 pg Mean Corpuscular Hemoglobin Concent 34.7 g/dl Platelet Count 115 K/uL Mean Platelet Volume 10.5 fL Neutrophils (%) (Auto) 81.8 % Lymphocytes (%) (Auto) 9.4 % Monocytes (%) (Auto) 8.4 % Eosinophils (%) (Auto) 0.0 % Basophils (%) (Auto) 0.0 % Neutrophils # (Auto) 6.64 K/uL Lymphocytes # (Auto) 0.76 K/uL Monocytes # (Auto) 0.68 K/uL Eosinophils # (Auto) 0.00 K/uL Basophils # (Auto) 0.00 K/uL RDW Standard Deviation 45.5 fL RDW Coefficient of Variation 14.3 % Immature Granulocyte % (Auto) 0.4 % Immature Granulocyte # (Auto) 0.03 K/uL Red Blood Cell Morphology Unremarkable Prothrombin Time 11.5 SECONDS Prothromb Time International Ratio 1.1 Activated Partial Thromboplast Time 24.7 SECONDS Partial Thromboplastin Ratio 1.0 Sodium Level 142 mmol/L Potassium Level 4.0 mmol/L Chloride Level 105 mmol/L Carbon Dioxide Level 30 mmol/L Anion Gap 7.0 mmol/L Blood Urea Nitrogen 12 mg/dl Creatinine 0.59 mg/dl Est Creatinine Clear Calc Drug Dose 200.5 ml/min Estimated GFR () 139.7 Estimated GFR (Non- 120.6 BUN/Creatinine Ratio 20.1 Random Glucose 132 mg/dl Calcium Level 6.4 mg/dl Ionized Calcium 1.05 mmol/l Magnesium Level 1.7 mg/dl Test 05/05/16 05:18 05/05/16 05:54 05/05/16 06:15 05/05/16 10:05 White Blood Count 9.02 K/uL Red Blood Count 3.03 M/uL Hemoglobin 9.1 g/dL Hematocrit 26.3 % Mean Corpuscular Volume 86.8 fL Mean Corpuscular Hemoglobin 30.0 pg Mean Corpuscular Hemoglobin Concent 34.6 g/dl RDW Standard Deviation 45.7 fL RDW Coefficient of Variation 14.5 % Platelet Count 123 K/uL Mean Platelet Volume 10.6 fL Prothrombin Time 11.7 SECONDS Prothromb Time International Ratio 1.1 Activated Partial Thromboplast Time 23.5 SECONDS Partial Thromboplastin Ratio 0.9 Sodium Level 140 mmol/L Potassium Level 4.3 mmol/L Chloride Level 102 mmol/L Carbon Dioxide Level 33 mmol/L Anion Gap 5.0 mmol/L Blood Urea Nitrogen 13 mg/dl Creatinine 0.64 mg/dl Est Creatinine Clear Calc Drug Dose 184.8 ml/min Estimated GFR () 135.1 Estimated GFR (Non- 116.6 BUN/Creatinine Ratio 20.9 Random Glucose 121 mg/dl Calcium Level 7.4 mg/dl Phosphorus Level 2.5 mg/dl Magnesium Level 2.1 mg/dl Bedside Glucose 126 mg/dl 106 mg/dl Ionized Calcium 1.04 mmol/l
[2016-05-05] MEDS ORDERED: CALCIUM GLUCONATE 10% 1,000 MG in SODIUM CHLORIDE 0.9% 50ML 50 ML IV ONE (13:00)
[2016-05-05] MEDS ORDERED: FUROSEMIDE 40 MG/4 ML VIAL ONE (13:29)
[2016-05-05] MEDS ORDERED: FUROSEMIDE INJ 10 MG in SYRINGE 0 ML IV ONE (13:45)
[2016-05-05] MEDS ORDERED: POTASSIUM CHLR 20 MEQ / WTR 20 MEQ in PREMIXED WATER 100 ML IV STA (15:18)
[2016-05-05 16:20] LABS: HEMATOCRIT 26.8 % (42-52)
[2016-05-05] MEDS: POTASSIUM CHLR 10MEQ / WTR IV SCH ×2 (18:16→18:45)
[2016-05-05] MEDS: INSULIN REGULAR 250 UNITS in SODIUM CHLORIDE 0.9% 250ML 250 ML IV SCH (18:18)
[2016-05-05] MEDS: DEXTROSE 50% 50 ML SYR IV PRN (18:20)
[2016-05-05] MEDS ORDERED: NURSING VERBAL MED ORDER ONE (19:00)
[2016-05-05] MEDS ORDERED: PHARMACY GLYCEMIC MGMT CONSULT PRN (20:00)
[2016-05-06] VITALS (41 sets, daily range): BP systolic 114–151; BP diastolic 55–85; PULSE 82–110; TEMP 36.7–37.2; O2SAT 93–100
[2016-05-06] MEDS: INSULIN ASPART 100 UNITS/ML 3 ML PEN SC SCH ×6 (04:00→20:31)
[2016-05-06] MEDS: NORMOSOL R 1,000 ML IV SCH ×2 (04:10→16:35)
[2016-05-06 05:33] LABS: HEMATOCRIT 26.8 % (42-52); MEAN CORPUSCULAR HEMOGLOBIN 30.2 pg (25-34); MEAN PLATELET VOLUME 10.2 fL (7.4-10.4); PLATELET COUNT 168 K/uL (130-400); RED BLOOD COUNT 3.01 M/uL (4.7-6.1); WHITE BLOOD COUNT 7.75 K/uL (4.8-10.8)
[2016-05-06 06:10] LABS: BUN/CREATININE RATIO 19.7 (10-20); CREATININE 0.63 mg/dl (0.60-1.40); POTASSIUM 3.9 mmol/L (3.5-5.1)
[2016-05-06 06:11] LABS: PHOSPHORUS 2.3 mg/dl (2.5-4.9)
--- NOTE | 2016-05-06 07:07 | DIAGNOSTIC IMAGING REPORT ---
CHEST ONE VIEW PORTABLE CLINICAL HISTORY: Consolidation. COMPARISON STUDY: Chest radiograph May 05, 2016. FINDINGS: The endotracheal, nasogastric and right internal jugular lines have been removed. There is no pneumothorax. There is a suspected trace right pleural effusion. Pulmonary vascularity is normal. Mild left mid and lower lung opacity is present. Right paramediastinal opacity shown on prior exam has improved. IMPRESSION: 1. Significant interval improvement in right paramediastinal opacity. 2. Left lower lung opacity which may reflect atelectasis or consolidation. This is similar to prior exam. Electronically signed by: Denton Matias M.D. 05/06/2016 7:05 AM Dictated Date/Time: 05/06/2016 7:00 AM
[2016-05-06] MEDS: FAMOTIDINE IV INJ 20 MG in DEXTROSE 5% 100ML 100 ML IV SCH (07:46)
[2016-05-06] MEDS: HEPARIN SOD 5000 UNIT/0.5 ML CARP SQ SCH (07:56)
--- NOTE | 2016-05-06 08:02 | Anesthesiology Progress Note ---
Anesthesia Post Op Note Date & Time May 06, 2016 at 08:01 Vital Signs Pain Intensity: 3 Vital Signs Past 12 Hours Date Time Temp Pulse Resp B/P Pulse Ox O2 Delivery O2 Flow Rate FiO2 05/06/16 06:19 37.1 05/06/16 06:00 37.1 100 25 143/69 99 Nasal Cannula 3.0 05/06/16 05:59 99 21 146/72 97 Nasal Cannula 3.0 05/06/16 05:00 94 25 150/68 98 Nasal Cannula 3.0 05/06/16 04:59 96 23 142/66 98 Nasal Cannula 3.0 05/06/16 04:27 94 Nasal Cannula 05/06/16 04:01 36.8 101 22 145/68 96 Nasal Cannula 3.0 05/06/16 04:00 103 32 147/70 97 Nasal Cannula 3.0 05/06/16 03:59 101 18 140/65 98 Nasal Cannula 3.0 05/06/16 03:01 102 23 141/69 98 Nasal Cannula 3.0 05/06/16 02:59 103 27 151/75 96 Nasal Cannula 3.0 05/06/16 02:01 103 13 142/60 97 Nasal Cannula 3.0 05/06/16 01:01 100 22 138/65 97 Nasal Cannula 3.0 05/06/16 00:58 105 20 123/85 95 Nasal Cannula 3.0 05/06/16 00:33 94 Nasal Cannula 05/06/16 00:01 36.8 110 18 129/57 95 Nasal Cannula 3.0 05/05/16 23:00 106 22 134/63 96 Nasal Cannula 3.0 05/05/16 22:59 106 19 140/67 96 Nasal Cannula 3.0 05/05/16 22:00 107 16 132/63 96 Nasal Cannula 3.0 05/05/16 21:59 106 26 135/66 96 Nasal Cannula 3.0 05/05/16 21:00 111 22 118/53 91 Nasal Cannula 3.0 05/05/16 20:47 94 Nasal Cannula Notes Mental Status: alert / awake / arousable, participated in evaluation Pt Amnestic to Procedure: Yes Nausea / Vomiting: adequately controlled Pain: adequately controlled Airway Patency, RR, SpO2: stable & adequate BP & HR: stable & adequate Hydration State: stable & adequate Anesthetic Complications: no major complications apparent
[2016-05-06] MEDS ORDERED: ACETAMINOPHEN IV 100 ML IV PRN (10:00)
--- NOTE | 2016-05-06 10:06 | Critical Care Progress Note ---
Critical Care Progress Note Date of Service May 06, 2016. Attending Dr. Cristy Perdomo Mr. Li is a 46yo man who presented to the ICU for hypotension and tachycardia following urgent laparoscopic appendectomy on 05/03/16. He was found to have large fluid accumulation via ultrasound and was taken back to O.R emergently. During this episode the pt required multiple blood products to support him hemodynamically, including 6 units packed red blood cells 2 units of FFP, 1 unit platelet. He required Arterial line for monitoring and central access for resuscitation efforts. Both have been discontinued at the time of my exam today. He was extubated on 05/05/16 at 1525 to 40% FIO2 via Nasal Cannula. Last evening Mr. Gaston had an episode of hypoglycemia, BSG of 64 requiring 25mls of Dextrose. He is a known diabetic and his insulin infusion was stopped. Repeat labs were 123. He remained lethargic and confused overnight; requiring a one to one sitter. This morning he remains tired but is now alert and oriented to his situation. He continues to show improvement. Dr. Reynoso, the surgeon, was in this morning and answered questions with family at bedside. Mr. Gaston's only complaints today are irritation from the Carter catheter and thirst. When asked he states he still has a sore throat from the prior intubation, but it is improving. He has not had a bowel movement since admission and currently denies any passing of gas. He denies fever, chills, myopathies, change in vision, cough, shortness of breath, chest pain, palpitations, abd pain, incisional pain, nausea , numbness, tingling, or weakness. Objective Vital Signs - as noted Laboratory Data - as noted Physical Exam: General - NAD Eyes - PERRL, EOMI No icterus, gaze conjugate ENT - Mucosa moist, no lesions or candidiasis Lungs - No paradoxical chest wall movement, clear to auscultation bilaterally, no wheezes, rales, or rhonchi Heart - Sinus Tach, No murmur, rubs, clicks, or gallops appreciated Abdomen - normoactive BS present, no bruits noted, tympanic to percussion in RUQ & LUQ progressing to dullness toward surgical sites in the LLQ & RLQ , soft , nontender, nondistended, no organomegaly, covered surgical incision intact, clean and dry at midline. RYDER drain intact with maciel blood in place, multiple laparoscopic incisions covered, closed, and dry without erythema or drainage. Extremities - Trace pedal edema, pedal pulses intact Neuro - A&OX3 Strength extremities equal and appropriate bilaterally Reflexes: Patellar and plantar normal and equal CN:PERRL, EOMI, no facial asymmetry, uvula/tongue midline Assessment & Plan (1) Shock Previously rq'd phenylephrine, since d/c'd SBP 120's to 150's now D/C Arterial Line now Continue Normosol @ 74mls/hr Monitor on telemetry (2) Surgical complication involving circulatory system associated with non- cardiac procedure Emergent diagnostic laparoscopy Bleeding trocar port site found and repaired (3) Postoperative anemia due to acute blood loss Large volume blood product resuscitation: 6 units packed red blood cells 2 units of FFP, 1 unit platelet secondary to bleeding at site of trocar insertion RYDER drainage minimal today 20mL, no sign of continued bleeding Continue to monitor drain output Follow H&H (4) S/P laparoscopic appendectomy POD # [address] Reynoso for operative recommendations (5) Diabetes mellitus Hemoglobin A1c 6.4 Episode of Hypoglycemia 1, prior insulin infusion d/c'd Monitor BSG per protocol SSI in place (6) VU (acute kidney injury) Secondary to acute blood loss, resolved with aggressive volume resuscitation Cr peaked at 1.6 BUN & Cr: 12 & 0.63 Continue fluids as above Follow serial labs (7) Obesity, morbid, BMI 40.0-49.9 May benefit from family living educator and nutritional consult in convalescent phase Resp: 99% on 3L via Nasal Cannula Wean down O2 as tolerated CXR 05/06 reviewed: * IMPRESSION: * 1. Significant interval improvement in right paramediastinal opacity. * 2. Left lower lung opacity which may reflect atelectasis or consolidation. This is similar to prior exam. ID: POD #3; WBC 7.75, Afebrile since admission Received Zosyn 1500 q6hrs in the preop and postop setting on 05/03-05/04 No overt signs of infection d/c carter now d/c Arterial line GI: POD # 3 Currently no BM or flatus per pt Minimal RYDER drainage: bloody drainage noted Begin Clear Liquid diet per surgeon Follow clinically Prophylaxis: Pepcid 20mg PO BID DVT Prophylaxis: * SCDs ordered Mobility: * PT ordered * OOB to chair as tolerated today Access in place: 20g Left AC PIV 18g L Wrist PIV Arterial Line d/c'd 05/06/16 CCT 0 minutes: Level 3 inpatient billing; not including any billable procedures. Thank you for involving us in the care of this pt. Please review Dr. Cristy Gaxiola 's addendum for further recommendations. Director Of Science Attending: I have personally interviewed and examined this patient and his care was discussed in detail on multidisciplinary rounds. I have reviewed the above note , have discussed it with Ewelina Buchanan PA-C and agree with the assessment and plan. This is a patient who is s/p laparoscopic appendectomy complicated by intrabdominal bleeding and hypovolemic shock. He was successfully resuscitated and extubated yesterday. He is drowsy and denies pain or sob. Exam is significant for drowsiness. He follows commands, moves all 4 extremities and participates in discussion but falls asleep at times. Abdomen is distended but soft and there are active BS. RYDER drain with approx 20ml of blood in it noted - not emptied since change of shift. Labs have been reviewed as have VS, imaging , medications and new orders. H/H has been stable. He had a significant diruesis of -5.8L for 24 hour fluid balance yesterday. He is overall doing well and I suspect his drowsiness may be secondary to sedative medications that are still lingering. Other than morphine and [place], which is had not received, I don't see any other offending medications. I will check an H/H at 4pm today, mobilize him, arterial line and TLC have been discontinued. He has been started on clears and I have changed his pepcid to po. I have added PRN IV and PO acetaminophen for pain. His heparin was increased to 5000 units q8 hours as well. Keep IVF until he is eating well and consider d/c the carter and transfer to floor later today. I discussed his care with his , sister, brother and father. Questions were answered and support was provided. Consults & Procedures Procedures: Urgent Appendectomy 05/03/16 Emergency exploratory 05/03/16 Intubated prior to surgery 05/03/16 Extubated 05/05/16 Data Medications: Current Inpatient Medications Medications (Trade) Dose Ordered Sig/Prabhjot Route Start Time Stop Time Status Last Admin Dose Admin Ondansetron HCl (Zofran Inj) 4 mg Q4H PRN IV 05/03/16 10:00 06/02/16 09:59 Morphine Sulfate (MoRPHine SULFATE INJ) 4 mg Q1H PRN IV 05/03/16 10:00 05/17/16 09:59 Glucose (Glucose 40% Gel) 15-30 GRAMS 15 GRAMS... UD PRN PO 05/03/16 10:00 06/02/16 09:59 Glucose (Glucose Chew Tab) 4-8 Tablets 4 Tabl... UD PRN PO 05/03/16 10:00 06/02/16 09:59 Dextrose (Dextrose 50% 50ML Syringe) 25-50ML OF 50% DW IV FOR... UD PRN IV 05/03/16 10:00 06/02/16 09:59 05/05/16 18:20 25 ML Glucagon (Glucagon Inj) 1 mg UD PRN SQ 05/03/16 10:00 06/02/16 09:59 Miscellaneous (Iv Fluids Completed) 1 ea PRN PRN N/A 05/03/16 11:00 05/03/17 10:59 Acetaminophen/ Hydrocodone Bitart ([place] 5/325 Tab) 1 tab Q4H PRN PO 05/03/16 14:45 05/17/16 14:44 Acetaminophen/ Hydrocodone Bitart 2 tab 2 tab Q4H PRN PO 05/03/16 14:45 05/17/16 14:44 Parenteral Electrolyte Solution (Normosol R) 1,000 ml @ 75 mls/hr [id number] IV 05/04/16 14:30 06/03/16 14:29 05/06/16 04:10 75 MLS/HR Miscellaneous Information (Consult Glycemic Management Pharmacy) 1 ea UD PRN N/A 05/05/16 20:00 06/04/16 19:59 Insulin Aspart (novoLOG ASPART) SLIDING SCALE ACHS SC 05/05/16 21:00 06/04/16 20:59 Insulin Aspart (novoLOG ASPART) SLIDING SCALE TODAY@0000,0400 SC 05/06/16 00:00 06/05/16 00:00 Heparin Sodium (Porcine) 5000 unit 5,000 unit Q8 SQ 05/06/16 14:00 06/05/16 13:59 Acetaminophen (Ofirmev Iv) 100 ml @ 400 mls/hr Q8H PRN IV 05/06/16 10:00 06/05/16 09:59 UNV I & O: 24-Hour Column 05/06/16 08:00 Intake Total 2724 ml Output Total 75275 ml Balance -8346 ml Vital Signs: Date Time Temp Pulse Resp B/P Pulse Ox O2 Delivery O2 Flow Rate FiO2 05/06/16 07:30 99 Nasal Cannula 3.0 05/06/16 06:19 37.1 05/06/16 06:00 37.1 100 25 143/69 99 Nasal Cannula 3.0 05/06/16 05:59 99 21 146/72 97 Nasal Cannula 3.0 05/06/16 05:00 94 25 150/68 98 Nasal Cannula 3.0 05/06/16 04:59 96 23 142/66 98 Nasal Cannula 3.0 05/06/16 04:27 94 Nasal Cannula 05/06/16 04:01 36.8 101 22 145/68 96 Nasal Cannula 3.0 05/06/16 04:00 103 32 147/70 97 Nasal Cannula 3.0 05/06/16 03:59 101 18 140/65 98 Nasal Cannula 3.0 05/06/16 03:01 102 23 141/69 98 Nasal Cannula 3.0 05/06/16 02:59 103 27 151/75 96 Nasal Cannula 3.0 05/06/16 02:01 103 13 142/60 97 Nasal Cannula 3.0 05/06/16 01:01 100 22 138/65 97 Nasal Cannula 3.0 05/06/16 00:58 105 20 123/85 95 Nasal Cannula 3.0 05/06/16 00:33 94 Nasal Cannula 05/06/16 00:01 36.8 110 18 129/57 95 Nasal Cannula 3.0 05/05/16 23:00 106 22 134/63 96 Nasal Cannula 3.0 05/05/16 22:59 106 19 140/67 96 Nasal Cannula 3.0 05/05/16 22:00 107 16 132/63 96 Nasal Cannula 3.0 05/05/16 21:59 106 26 135/66 96 Nasal Cannula 3.0 05/05/16 21:00 111 22 118/53 91 Nasal Cannula 3.0 05/05/16 20:47 94 Nasal Cannula 1/8/17 20:00 36.8 114 24 137/68 95 Nasal Cannula 05/05/16 19:59 114 28 140/71 94 05/05/16 19:00 107 28 132/65 95 05/05/16 16:30 37.5 106 25 128/63 92 Humidified Oxygen 40 Mask 05/05/16 16:28 105 20 125/66 93 05/05/16 16:20 93 Humidified Oxygen 40 Mask 05/05/16 16:00 105 14 117/57 93 05/05/16 15:58 108 25 127/73 94 05/05/16 15:30 110 16 141/72 94 05/05/16 15:28 107 27 136/81 93 05/05/16 15:00 105 25 130/64 94 05/05/16 14:58 104 23 121/71 95 05/05/16 14:36 40 05/05/16 14:30 106 15 150/78 95 05/05/16 14:28 103 22 118/72 97 05/05/16 14:00 97 14 123/64 95 05/05/16 13:58 96 13 122/68 95 05/05/16 13:30 100 18 129/67 97 05/05/16 13:28 108 19 121/78 93 05/05/16 13:00 95 17 119/59 95 05/05/16 12:59 97 18 121/62 95 05/05/16 12:30 97 16 124/63 95 05/05/16 12:29 97 16 120/63 94 05/05/16 12:00 103 23 141/75 92 05/05/16 11:40 40 05/05/16 11:29 37.0 100 12 122/63 94 Mechanical Ventilator 40 05/05/16 11:25 94 Mechanical Ventilator 40 05/05/16 11:25 40 05/05/16 11:00 100 15 130/66 94 05/05/16 10:58 98 16 146/69 94 05/05/16 10:29 93 15 138/71 97 Laboratory Results: Last 24 Hours Test 05/05/16 10:05 05/05/16 13:49 05/05/16 16:05 05/05/16 18:13 Bedside Glucose 106 mg/dl 107 mg/dl 64 mg/dl Hemoglobin 9.0 g/dL Hematocrit 26.8 % Test 05/05/16 18:48 05/05/16 21:09 05/06/16 00:29 05/06/16 05:06 Bedside Glucose 123 mg/dl 123 mg/dl 129 mg/dl White Blood Count 7.75 K/uL Red Blood Count 3.01 M/uL Hemoglobin 9.1 g/dL Hematocrit 26.8 % Mean Corpuscular Volume 89.0 fL Mean Corpuscular Hemoglobin 30.2 pg Mean Corpuscular Hemoglobin Concent 34.0 g/dl RDW Standard Deviation 45.7 fL RDW Coefficient of Variation 14.0 % Platelet Count 168 K/uL Mean Platelet Volume 10.2 fL Nucleated RBC Absolute Count (auto) 0.04 K/uL Nucleated Red Blood Cells % 0.6 % Sodium Level 145 mmol/L Potassium Level 3.9 mmol/L Chloride Level 104 mmol/L Carbon Dioxide Level 33 mmol/L Anion Gap 8.0 mmol/L Blood Urea Nitrogen 12 mg/dl Creatinine 0.63 mg/dl Est Creatinine Clear Calc Drug Dose 187.8 ml/min Estimated GFR () 136.0 Estimated GFR (Non- 117.4 BUN/Creatinine Ratio 19.7 Random Glucose 129 mg/dl Calcium Level 8.0 mg/dl Phosphorus Level 2.3 mg/dl Magnesium Level 2.0 mg/dl
--- NOTE | 2016-05-06 10:28 | Pharmacy Progress Note ---
Glycemic Control Intl Consult Date of Service May 06, 2016. Scope Glycemic Pharmacist consulted by Dr Wild on 05/05/16 for glycemic control and to write orders per [facility] inpatient glycemic control protocol Objective Weight (Kilograms): 122.900 Accuchecks BSG (last 24hrs): Test 05/05/16 13:49 05/05/16 18:13 05/05/16 18:48 05/05/16 21:09 Bedside Glucose 107 mg/dl (70-99) 64 mg/dl (70-99) 123 mg/dl (70-99) 123 mg/dl (70-99) Test 05/06/16 00:29 05/06/16 05:06 Bedside Glucose 129 mg/dl (70-99) Random Glucose 129 mg/dl (70-99) Laboratory Data (last 24hrs) Test 05/06/16 05:06 Anion Gap 8.0 mmol/L BUN/Creatinine Ratio 19.7 Blood Urea Nitrogen 12 mg/dl Creatinine 0.63 mg/dl Potassium Level 3.9 mmol/L Sodium Level 145 mmol/L White Blood Count 7.75 K/uL HbA1c Test 05/04/16 06:20 Hemoglobin A1c 6.4 % (4.5-5.6) H Recent Pertinent Medications Outpatient Anti-diabetic Regimen: * Trulicity 1.5 mg SC weekly * Metformin 1 g PO BIDM * Glipizide 10 mg PO BIDM * A1c = 6.4 % 05/04/16 The patient is currently receiving: * Correctional Insulin: Novolog Correction per scale ACHS Goal Range: Low 140 mg/dL - High 180 mg/dL Correction Factor: 25 mg/dL/unit * Prandial insulin: Per carb ratio of 1 unit per 15 grams CHO consumed Risk Factors for Insulin Resistance: * IVF: Normosol 75 cc/hr * Recent Surgery: s/p appendectomy * Diet: clears Assessment & Plan ASSESSMENT: * 46 yo M admitted to ICU s/p emergent appendectomy due to hypotension and blood loss * BSGs initially elevated due to acute stressors so an insulin drip was initiated per protocol * Over the past 24 hours, BSGs have greatly improved and then last evening patient actually was hypoglycemic * Due to BSG of 64 mg/dL, drip was turned off and patient was changed to Novolog scale only * At this point BSGs remain stable, but patient is to have diet advanced later this afternoon which could change things * For now, continue current plan and reassess in the AM * ADA & AACE recommend a goal blood sugar range 140-180 mg/dl for the majority of critically ill & non-critically ill patients PLAN FOR INPATIENT GLYCEMIC CONTROL: * Hold outpatient oral diabetes medications * Correctional Insulin with NOVOLOG per scale ACHS + 00,04 (continue more frequent checks since diet advancing) * Goal Range: Low 140 mg/dL - High 180 mg/dL * Correction Factor: 25 mg/dL/unit * Nutritional / Prandial insulin per carb ratio of 1 unit per 15 grams CHO consumed * Please note that the plan above was derived based on current level of insulin resistance and hospital stress. These recommendations are appropriate for inpatient admission only. Plan of care upon discharge will need to be reassessed to avoid potential outpatient hypo/hyperglycemia. Thank you.
[2016-05-06] MEDS ORDERED: HEPARIN SOD 5000 UNIT/0.5 ML CARP SQ SCH (14:00)
[2016-05-06] MEDS ORDERED: ACETAMINOPHEN 325 MG TAB PO PRN (15:30)
[2016-05-06 16:46] LABS: HEMATOCRIT 29.5 % (42-52); MEAN CELL VOLUME 88.6 fL (80-100); MEAN CORPUSCULAR HEMOGLOBIN 29.7 pg (25-34); MEAN CORPUSCULAR HGB CONC 33.6 g/dl (32-36); MEAN PLATELET VOLUME 9.8 fL (7.4-10.4); PLATELET COUNT 195 K/uL (130-400); RED BLOOD COUNT 3.33 M/uL (4.7-6.1); WHITE BLOOD COUNT 7.27 K/uL (4.8-10.8)
[2016-05-06 16:58] LABS: PROTHROMBIN TIME (PATIENT) 10.8 SECONDS (9.0-12.0)
--- NOTE | 2016-05-06 20:40 | Medical Consult ---
Consultation Date of Consultation: May 06, 2016. Attending Physician: Alon Reynoso D.O. Reason for Consultation: Medical management History of Present Illness This is a 46 y/o male with a history of DM II and HLD who presents for medical management s/p appendectomy on 05/03. The patient had developed hypotension and tachycardia following surgery and was found to have a collection of fluid, prompting him to be taken back to the OR for emergent exploratory surgery. Pt. did require a transfusion of 6 units PRBCs, 2 units FFP, and 1 units platelets at that time. Pt. transferred to the ICU. He was extubated on 05/05. He will be transferred out of the ICU shortly, hospitalist consulted for medical management for the transition to the floor. Pt. currently stable. He is tolerating clear liquids well. He complains of a sore throat from intubation and some weakness and fatigue but otherwise has no complaints. He denies passing gas or having a bowel movement. His Conroy was just removed and he has urinated without difficulty. The patient denies fevers, chills, sweats, chest pain, palpitations, claudication, cough, wheezing, shortness of breath, nausea, vomiting, abdominal pain, dysuria, hematuria, urinary retention, paralysis, weakness, numbness and tingling. Past Medical/Surgical History Medical Problems: (1) Appendicitis Status: Acute Family History Bladder cancer Diabetes mellitus Hyperlipidemia Hypertension Lymphoma Social History Smoking Status: Never Smoker Smokeless Tobacco Use: No Alcohol Use: none Drug Use: none Marital Status: Housing Status: lives with family Occupation Status: employed Allergies Coded Allergies: No Known Allergies (Unverified , 05/03/16) Current Inpatient Medications Current Inpatient Medications Medications (Trade) Dose Ordered Sig/Prabhjot Route Start Time Stop Time Status Last Admin Dose Admin Ondansetron HCl (Zofran Inj) 4 mg Q4H PRN IV 05/03/16 10:00 06/02/16 09:59 Morphine Sulfate (MoRPHine SULFATE INJ) 4 mg Q1H PRN IV 05/03/16 10:00 05/17/16 09:59 Glucose (Glucose 40% Gel) 15-30 GRAMS 15 GRAMS... UD PRN PO 05/03/16 10:00 06/02/16 09:59 Glucose (Glucose Chew Tab) 4-8 Tablets 4 Tabl... UD PRN PO 05/03/16 10:00 06/02/16 09:59 Dextrose (Dextrose 50% 50ML Syringe) 25-50ML OF 50% DW IV FOR... UD PRN IV 05/03/16 10:00 06/02/16 09:59 05/05/16 18:20 25 ML Glucagon (Glucagon Inj) 1 mg UD PRN SQ 05/03/16 10:00 06/02/16 09:59 Miscellaneous (Iv Fluids Completed) 1 ea PRN PRN N/A 05/03/16 11:00 05/03/17 10:59 Acetaminophen/ Hydrocodone Bitart ([place] 5/325 Tab) 1 tab Q4H PRN PO 05/03/16 14:45 05/17/16 14:44 Acetaminophen/ Hydrocodone Bitart 2 tab 2 tab Q4H PRN PO 05/03/16 14:45 05/17/16 14:44 Parenteral Electrolyte Solution (Normosol R) 1,000 ml @ 75 mls/hr [id number] IV 05/04/16 14:30 06/03/16 14:29 05/06/16 16:35 75 MLS/HR Miscellaneous Information (Consult Glycemic Management Pharmacy) 1 ea UD PRN N/A 05/05/16 20:00 06/04/16 19:59 Insulin Aspart (novoLOG ASPART) SLIDING SCALE ACHS SC 05/05/16 21:00 06/04/16 20:59 05/06/16 17:26 3 UNITS Insulin Aspart SLIDING SCALE TODAY@0000,0400 SC 05/06/16 00:00 06/05/16 00:00 Acetaminophen (Ofirmev Iv) 100 ml @ 400 mls/hr Q8H PRN IV 05/06/16 10:00 06/05/16 09:59 Famotidine (Pepcid Tab) 20 mg BID PO 05/06/16 21:00 06/05/16 20:59 Acetaminophen (Tylenol Tab) 650 mg Q6H PRN PO 05/06/16 15:30 06/05/16 15:29 Enoxaparin Sodium (Lovenox Inj) 40 mg DAILY@2200 SQ 05/06/16 22:00 06/05/16 21:59 Review of Systems Constitutional: + fatigue, + weakness, No chills, No fever, No sweats Eyes: No diplopia, No eye pain, No worsening of vision ENT: + sore throat, No hearing loss, No tinnitus, No trouble swallowing Respiratory: No cough, No shortness of breath, No wheezing Cardiovascular: No chest pain, No claudication, No palpitations Abdomen: No nausea, No pain, No vomiting Musculoskeletal: No calf pain, No joint pain, No muscle pain Genitourinary - Male: No dysuria, No hematuria, No urinary retention Neurologic: No numbness/tingling, No paralysis, No weakness Integumentary: No color change, No itch, No rash Physical Exam Date Time Temp Pulse Resp B/P Pulse Ox O2 Delivery O2 Flow Rate FiO2 05/06/16 18:15 100 24 116/71 94 Nasal Cannula 3.0 05/06/16 17:00 101 35 98 05/06/16 16:09 36.7 97 22 131/80 98 Nasal Cannula 3.0 05/06/16 16:00 97 18 96 05/06/16 15:45 98 Nasal Cannula 3.0 05/06/16 15:00 102 24 95 Nasal Cannula 3.0 05/06/16 14:00 91 16 93 05/06/16 13:00 97 05/06/16 12:00 96 36 100 05/06/16 11:59 36.7 96 14 143/75 99 Nasal Cannula 3.0 05/06/16 11:30 100 Nasal Cannula 3.0 05/06/16 11:00 91 22 97 05/06/16 10:59 95 21 124/63 99 05/06/16 10:00 92 27 140/70 98 05/06/16 09:59 92 24 145/72 97 Nasal Cannula 3.0 05/06/16 09:00 93 22 143/70 98 05/06/16 08:59 93 16 115/55 99 05/06/16 08:00 89 23 146/68 98 05/06/16 08:00 Nasal Cannula 05/06/16 07:59 91 24 143/67 99 05/06/16 07:45 36.9 93 24 130/77 99 Nasal Cannula 3.0 05/06/16 07:30 99 Nasal Cannula 3.0 05/06/16 07:00 90 24 143/66 97 05/06/16 06:19 37.1 05/06/16 06:00 37.1 100 25 143/69 99 Nasal Cannula 3.0 05/06/16 05:59 99 21 146/72 97 Nasal Cannula 3.0 05/06/16 05:00 94 25 150/68 98 Nasal Cannula 3.0 05/06/16 04:59 96 23 142/66 98 Nasal Cannula 3.0 05/06/16 04:27 94 Nasal Cannula 05/06/16 04:01 36.8 101 22 145/68 96 Nasal Cannula 3.0 05/06/16 04:00 103 32 147/70 97 Nasal Cannula 3.0 05/06/16 03:59 101 18 140/65 98 Nasal Cannula 3.0 05/06/16 03:01 102 23 141/69 98 Nasal Cannula 3.0 05/06/16 02:59 103 27 151/75 96 Nasal Cannula 3.0 05/06/16 02:01 103 13 142/60 97 Nasal Cannula 3.0 05/06/16 01:01 100 22 138/65 97 Nasal Cannula 3.0 05/06/16 00:58 105 20 123/85 95 Nasal Cannula 3.0 05/06/16 00:33 94 Nasal Cannula 05/06/16 00:01 36.8 110 18 129/57 95 Nasal Cannula 3.0 05/05/16 23:00 106 22 134/63 96 Nasal Cannula 3.0 05/05/16 22:59 106 19 140/67 96 Nasal Cannula 3.0 05/05/16 22:00 107 16 132/63 96 Nasal Cannula 3.0 05/05/16 21:59 106 26 135/66 96 Nasal Cannula 3.0 05/05/16 21:00 111 22 118/53 91 Nasal Cannula 3.0 05/05/16 20:47 94 Nasal Cannula General Appearance: WD/WN, no apparent distress, + obese Head: normocephalic, atraumatic Eyes: normal inspection, PERRL, EOMI ENT: normal ENT inspection, hearing grossly normal, pharynx normal Neck: supple, no JVD, trachea midline Respiratory/Chest: lungs clear, normal breath sounds, no respiratory distress Cardiovascular: regular rate, rhythm, no gallop, no murmur Abdomen/GI: normal bowel sounds, soft, + tenderness (mild diffuse tenderness) Extremities/Musculoskelatal: normal inspection, no calf tenderness, no pedal edema Neurologic/Psych: alert, normal mood/affect, oriented x 3 Skin: normal color, warm/dry, no rash Laboratory Results Last 24 Hours Test 05/05/16 21:09 05/06/16 00:29 05/06/16 04:05 05/06/16 05:06 Bedside Glucose 123 mg/dl 129 mg/dl 133 mg/dl White Blood Count 7.75 K/uL Red Blood Count 3.01 M/uL Hemoglobin 9.1 g/dL Hematocrit 26.8 % Mean Corpuscular Volume 89.0 fL Mean Corpuscular Hemoglobin 30.2 pg Mean Corpuscular Hemoglobin Concent 34.0 g/dl RDW Standard Deviation 45.7 fL RDW Coefficient of Variation 14.0 % Platelet Count 168 K/uL Mean Platelet Volume 10.2 fL Nucleated RBC Absolute Count (auto) 0.04 K/uL Nucleated Red Blood Cells % 0.6 % Sodium Level 145 mmol/L Potassium Level 3.9 mmol/L Chloride Level 104 mmol/L Carbon Dioxide Level 33 mmol/L Anion Gap 8.0 mmol/L Blood Urea Nitrogen 12 mg/dl Creatinine 0.63 mg/dl Est Creatinine Clear Calc Drug Dose 187.8 ml/min Estimated GFR () 136.0 Estimated GFR (Non- 117.4 BUN/Creatinine Ratio 19.7 Random Glucose 129 mg/dl Calcium Level 8.0 mg/dl Phosphorus Level 2.3 mg/dl Magnesium Level 2.0 mg/dl Test 05/06/16 11:40 05/06/16 16:07 05/06/16 16:35 Bedside Glucose 143 mg/dl 160 mg/dl White Blood Count 7.27 K/uL Red Blood Count 3.33 M/uL Hemoglobin 9.9 g/dL Hematocrit 29.5 % Mean Corpuscular Volume 88.6 fL Mean Corpuscular Hemoglobin 29.7 pg Mean Corpuscular Hemoglobin Concent 33.6 g/dl RDW Standard Deviation 44.8 fL RDW Coefficient of Variation 13.9 % Platelet Count 195 K/uL Mean Platelet Volume 9.8 fL Nucleated RBC Absolute Count (auto) 0.07 K/uL Nucleated Red Blood Cells % 1.0 % Prothrombin Time 10.8 SECONDS Prothromb Time International Ratio 1.0 Assessment & Plan 46 y/o male with a history of DM II and HLD who presents for medical management s/p appendectomy on 1/6. Developed hypotension and tachycardia following surgery and was found to have a collection of fluid. Taken back to the OR for emergent exploratory surgery. Required of 6 units PRBCs, 2 units FFP, and 1 units platelets. Extubated on 05/05. He will be transferred out of the ICU shortly, hospitalist consulted for medical management for the transition to the floor. -Pain management, DVT prophylaxis, and PT/OT as per primary team (surgery) -Advance diet as per primary team Acute blood loss anemia--stable -Last H&H stable at 9.9/29.5 -Monitor with daily CBC, transfuse if Hgb <8 Sore throat -Throat lozenges prn Diabetes mellitus type 2--Last HgbA1c checked 05/04/16 was 6.4 -Hold glipizide, metformin, Trulicity -Insulin sliding scale -Check BSGs q ac and qhs HLD -Resume simvastatin 20 mg PO qhs Code Status -Level I, FULL RESUSCITATION STATUS Thank you for this consultation. We will continue to follow. I agree with PA assessment and plan Agree with PE findings and ROS Consulted for medical management Acute blood loss anemia is stable Recheck CBC this afternoon Tolerating clears Hemodynamically stable at this time
[2016-05-06] MEDS ORDERED: COUGH DROP (SUGAR FREE) LOZ 24 LOZ/1 BOX PO PRN (20:45)
[2016-05-06] MEDS ORDERED: SIMVASTATIN 20 MG TAB PO SCH (21:00)
[2016-05-06] MEDS: FAMOTIDINE 20 MG TAB PO SCH (21:25)
[2016-05-06] MEDS: ENOXAPARIN 40 MG/0.4 ML SYR SQ SCH (21:26)
[2016-05-07] VITALS (9 sets, daily range): BP systolic 117–163; BP diastolic 42–83; PULSE 78–104; TEMP 36.7–37.3; O2SAT 91–99
[2016-05-07] MEDS: INSULIN ASPART 100 UNITS/ML 3 ML PEN SC SCH ×6 (04:00→20:55)
[2016-05-07] MEDS: NORMOSOL R 1,000 ML IV SCH (05:50)
[2016-05-07 05:52] LABS: HEMATOCRIT 27.5 % (42-52); MEAN CELL VOLUME 88.7 fL (80-100); MEAN CORPUSCULAR HGB CONC 33.8 g/dl (32-36); MEAN PLATELET VOLUME 9.7 fL (7.4-10.4); PLATELET COUNT 201 K/uL (130-400); WHITE BLOOD COUNT 6.06 K/uL (4.8-10.8)
[2016-05-07 06:21] LABS: BUN/CREATININE RATIO 19.4 (10-20); CALCIUM 8.4 mg/dl (8.5-10.1); CREATININE 0.72 mg/dl (0.60-1.40); POTASSIUM 3.7 mmol/L (3.5-5.1)
[2016-05-07 06:25] LABS: PHOSPHORUS 3.1 mg/dl (2.5-4.9)
--- NOTE | 2016-05-07 07:56 | Critical Care Progress Note ---
Critical Care Progress Note Date of Service May 07, 2016. Attending Dr. Cristy Perdomo Guillermo Gaston is a 46yo male who is in the ICU s/p urgent appendectomy with the complication of post-op bleeding that required 6 units packed red blood cells 2 units of FFP, 1 unit platelet, and 2 units of cryoprecipitate, and Desmopressin 37mcg(/ in PACU). Pt is now POD #4; nursing reports states patients O2 Sats fell into the 80's during sleep but return to normal without intervention. He reports continued improvement. He has no complaints today aside from some mild incisional pain. Pt was out of bed to the chair yesterday. He denies any lightheadedness or dizziness with this. PT initiated contact yesterday afternoon; noting that if the pt continues to improve at his current rate he may be able to return home without inpt rehab first. Pt will continue for Mr. Gaston at this time. Today he denies any pain aside from incisional. He continues with some intermittent coughing which has some blood tinge. He denies shortness or breath or difficulty breathing. Denies fever, chills, malaise. Denies chest pain/ pressure, nausea. He has had flatus but no BM since operation. However, he states he has limited appetite and only ate his jello yesterday. He denied numbness or tingling of the extremities. He admits to being weak but with continued improvement. Objective Vital Signs - as noted Laboratory Data - as noted Physical Exam: General - NAD, sitting in bed talking with brother at bedside Eyes - PERRL, EOMI No icterus, gaze conjugate ENT - Mucosa moist, no lesions or candidiasis Neck - Supple, trachea midline, no masses or lymphadenopathy, no JVD or bruits Lungs - No paradoxical chest wall movement, clear to auscultation bilaterally, no wheezes, rales, or rhonchi Heart - Reg rate and rhythm, No murmur, rubs, clicks, or gallops appreciated Abdomen - normoactive BS present, no bruits noted, tympanic to percussion, soft , mild tenderness, nondistended, no organomegaly, multiple incisions dressed, clean, without erythema or drainage, RYDER drain in place with bloody drainage Extremities - No edema, pedal pulses intact Neuro - A&OX4 CN:PERRL, EOMI, no facial asymmetry, uvula/tongue midline Assessment & Plan (1) Diabetes mellitus 24 hour BSG range: 123-179 Pt eating minimally Continue SSI Monitor BSG per protocol (2) VU (acute kidney injury) Secondary to acute blood loss, resolved with aggressive volume resuscitation; Cr peaked at 1.6 BUN & Cr: 14 & 0.72; Globally (-) Neg 3.7L Continue fluids as above until oral intake improves Follow serial labs (3) S/P laparoscopic appendectomy POD # [address] Reynoso Afebrile; WBC: 6.06; no sign of infection (4) Surgical complication involving circulatory system associated with non- cardiac procedure POD #4 for Emergent diagnostic laparoscopy with Bleeding trocar port site found and repaired H&H stable, no sign of bleeding Further surgical recommendations per Dr. Reynoso (5) Shock Previously rq'd phenylephrine, since d/c'd SBP 120's- 160's today Discontinue Normosol Resolved and stable (6) Postoperative anemia due to acute blood loss 6 units PRBCs 2 units of FFP, 1 unit Plts, and 2 units of cryoprecipitate, and Desmopressin 37mcg(1/ in PACU) RYDER Drain in place with continue minimal blood noted H&H stable: 9.3 & 27.5 Follow clinically Repeat daily CBC (7) Obesity, morbid, BMI 40.0-49.9 Other Respiratory: Nocturnal Hypoxemia noted 05/06/16: encourage sleep study in outpt setting if seen nightly 2L Nasal Cannula with adequate saturations * Wean off O2 No indication for repeat CXR Continue Incentive Spirometry Mobility: * OOB as tolerated, walking each shift GI Prophylaxis: * Discontinue Pepcid 20mg BID DVT Prophylaxis: * Lovenox 40mg sq daily; SCDs ordered Access: * [address] Left AC and Left Wrist CCT: 0 minutes; Level 3 Inpatient Thank you for including us in the care of this patient. Please review Dr. Cristy Gaxiola's addendum for further recommendations. Supervisor [employer] Attending: Patient interviewed and examined separately from Ewelina Buchanan PA-C. Care discussed in detail on multidisciplinary rounds. Data, VS, labs, meds and note reviewed. Assessment and plan is well documented above. My biggest concern presently is that he continues to have bloody drainage from the RYDER and it has not thinned or lessened at about 30cc per shift. H/H has remained relatively stable. Bleeding scan ordered and I will update Dr. Reynoso. He remains on lovenox for DVT prophylaxis. He is passing gas but no BM. He is tolerating clears. IVF stopped. Patient's mental status is much better today. Oxygen desaturation last night noted - this occurred when he was lying flat on his back and he says he usually does not sleep that way. He admits to snoring, says he sometimes wakes himself up with snoring. Suggest outpatient sleep study. He is getting close to 2.5 liters on incentive spirometry. His is stable for transfer to the floor. Advance diet per general surgery, d/c pepcid, continue SSI until his appetite is better. Continue PT. , sister and father updated at bedside. Please call me with any questions or concerns. Consults & Procedures Procedures: Urgent Appendectomy 05/03/16 Emergency exploratory 05/03/16 Intubated prior to surgery 05/03/16 Extubated 05/05/16 Data Medications: Current Inpatient Medications Medications (Trade) Dose Ordered Sig/Prabhjot Route Start Time Stop Time Status Last Admin Dose Admin Ondansetron HCl (Zofran Inj) 4 mg Q4H PRN IV 05/03/16 10:00 06/02/16 09:59 Morphine Sulfate (MoRPHine SULFATE INJ) 4 mg Q1H PRN IV 05/03/16 10:00 05/17/16 09:59 Glucose (Glucose 40% Gel) 15-30 GRAMS 15 GRAMS... UD PRN PO 05/03/16 10:00 06/02/16 09:59 Glucose (Glucose Chew Tab) 4-8 Tablets 4 Tabl... UD PRN PO 05/03/16 10:00 06/02/16 09:59 Dextrose (Dextrose 50% 50ML Syringe) 25-50ML OF 50% DW IV FOR... UD PRN IV 05/03/16 10:00 06/02/16 09:59 05/05/16 18:20 25 ML Glucagon (Glucagon Inj) 1 mg UD PRN SQ 05/03/16 10:00 06/02/16 09:59 Miscellaneous (Iv Fluids Completed) 1 ea PRN PRN N/A 05/03/16 11:00 05/03/17 10:59 Acetaminophen/ Hydrocodone Bitart ([place] 5/325 Tab) 1 tab Q4H PRN PO 05/03/16 14:45 05/17/16 14:44 Acetaminophen/ Hydrocodone Bitart 2 tab 2 tab Q4H PRN PO 05/03/16 14:45 05/17/16 14:44 Parenteral Electrolyte Solution (Normosol R) 1,000 ml @ 75 mls/hr [id number] IV 05/04/16 14:30 06/03/16 14:29 05/07/16 05:50 75 MLS/HR Miscellaneous Information (Consult Glycemic Management Pharmacy) 1 ea UD PRN N/A 05/05/16 20:00 06/04/16 19:59 Insulin Aspart SLIDING SCALE ACHS SC 05/05/16 21:00 06/04/16 20:59 05/06/16 17:26 3 UNITS Acetaminophen (Ofirmev Iv) 100 ml @ 400 mls/hr Q8H PRN IV 05/06/16 10:00 06/05/16 09:59 Famotidine (Pepcid Tab) 20 mg BID PO 05/06/16 21:00 06/05/16 20:59 05/06/16 21:25 20 MG Acetaminophen (Tylenol Tab) 650 mg Q6H PRN PO 05/06/16 15:30 06/05/16 15:29 Enoxaparin Sodium (Lovenox Inj) 40 mg DAILY@2200 SQ 05/06/16 22:00 06/05/16 21:59 05/06/16 21:26 40 MG Simvastatin (Zocor Tab) 20 mg HS PO 05/06/16 21:00 06/05/16 20:59 05/06/16 21:25 20 MG Menthol (Nice Cheri) 1 cheri PRN PRN PO 05/06/16 20:45 06/05/16 20:44 I & O: 24-Hour Column 05/07/16 08:00 Intake Total 2492 ml Output Total 3330 ml Balance -838 ml Vital Signs: Date Time Temp Pulse Resp B/P Pulse Ox O2 Delivery O2 Flow Rate FiO2 05/07/16 05:59 81 15 163/71 91 Nasal Cannula 2.0 05/07/16 04:08 37.2 89 13 127/64 99 Nasal Cannula 2.0 05/07/16 04:00 Nasal Cannula 2.0 05/07/16 01:58 78 15 136/42 93 Nasal Cannula 2.0 05/07/16 00:00 Nasal Cannula 3.0 05/06/16 23:58 37.2 82 18 130/69 97 Nasal Cannula 2.0 05/06/16 21:58 93 19 146/64 97 Nasal Cannula 2.0 05/06/16 20:01 37.1 97 24 114/65 96 Nasal Cannula 3.0 05/06/16 20:00 Nasal Cannula 3.0 05/06/16 18:15 100 24 116/71 94 Nasal Cannula 3.0 05/06/16 17:00 101 35 98 05/06/16 16:09 36.7 97 22 131/80 98 Nasal Cannula 3.0 05/06/16 16:00 97 18 96 05/06/16 15:45 98 Nasal Cannula 3.0 05/06/16 15:00 102 24 95 Nasal Cannula 3.0 05/06/16 14:00 91 16 93 05/06/16 13:00 97 05/06/16 12:00 96 36 100 05/06/16 11:59 36.7 96 14 143/75 99 Nasal Cannula 3.0 05/06/16 11:30 100 Nasal Cannula 3.0 05/06/16 11:00 91 22 97 05/06/16 10:59 95 21 124/63 99 05/06/16 10:00 92 27 140/70 98 05/06/16 09:59 92 24 145/72 97 Nasal Cannula 3.0 05/06/16 09:00 93 22 143/70 98 05/06/16 08:59 93 16 115/55 99 05/06/16 08:00 89 23 146/68 98 05/06/16 08:00 Nasal Cannula 05/06/16 07:59 91 24 143/67 99 05/06/16 07:45 36.9 93 24 130/77 99 Nasal Cannula 3.0 05/06/16 07:30 99 Nasal Cannula 3.0 Laboratory Results: Last 24 Hours Test 05/06/16 11:40 05/06/16 16:07 05/06/16 16:35 05/06/16 20:29 Bedside Glucose 143 mg/dl 160 mg/dl 167 mg/dl White Blood Count 7.27 K/uL Red Blood Count 3.33 M/uL Hemoglobin 9.9 g/dL Hematocrit 29.5 % Mean Corpuscular Volume 88.6 fL Mean Corpuscular Hemoglobin 29.7 pg Mean Corpuscular Hemoglobin Concent 33.6 g/dl RDW Standard Deviation 44.8 fL RDW Coefficient of Variation 13.9 % Platelet Count 195 K/uL Mean Platelet Volume 9.8 fL Nucleated RBC Absolute Count (auto) 0.07 K/uL Nucleated Red Blood Cells % 1.0 % Prothrombin Time 10.8 SECONDS Prothromb Time International Ratio 1.0 Test 05/07/16 00:16 05/07/16 04:07 05/07/16 05:06 05/07/16 06:35 Bedside Glucose 168 mg/dl 168 mg/dl 179 mg/dl White Blood Count 6.06 K/uL Red Blood Count 3.10 M/uL Hemoglobin 9.3 g/dL Hematocrit 27.5 % Mean Corpuscular Volume 88.7 fL Mean Corpuscular Hemoglobin 30.0 pg Mean Corpuscular Hemoglobin Concent 33.8 g/dl RDW Standard Deviation 43.9 fL RDW Coefficient of Variation 13.7 % Platelet Count 201 K/uL Mean Platelet Volume 9.7 fL Nucleated RBC Absolute Count (auto) 0.05 K/uL Nucleated Red Blood Cells % 0.8 % Sodium Level 142 mmol/L Potassium Level 3.7 mmol/L Chloride Level 103 mmol/L Carbon Dioxide Level 32 mmol/L Anion Gap 7.0 mmol/L Blood Urea Nitrogen 14 mg/dl Creatinine 0.72 mg/dl Est Creatinine Clear Calc Drug Dose 162.6 ml/min Estimated GFR () 128.7 Estimated GFR (Non- 111.1 BUN/Creatinine Ratio 19.4 Random Glucose 170 mg/dl Calcium Level 8.4 mg/dl Phosphorus Level 3.1 mg/dl Magnesium Level 2.0 mg/dl
[2016-05-07] MEDS: FAMOTIDINE 20 MG TAB PO SCH (07:58)
--- NOTE | 2016-05-07 10:33 | Surgery Progress Note ---
Surgery Progress Note Date of Service May 07, 2016. Subjective Post OP Day: 4 + diet (clears), + flatus, No bowel movement, No nausea Objective Vital Signs: Date Time Temp Pulse Resp B/P Pulse Ox O2 Delivery O2 Flow Rate FiO2 05/07/16 10:00 88 19 05/07/16 08:00 Room Air 05/07/16 07:59 37.3 97 16 127/83 93 Room Air 05/07/16 07:00 94 Nasal Cannula 2.0 05/07/16 05:59 81 15 163/71 91 Nasal Cannula 2.0 05/07/16 04:08 37.2 89 13 127/64 99 Nasal Cannula 2.0 05/07/16 04:00 Nasal Cannula 2.0 05/07/16 01:58 78 15 136/42 93 Nasal Cannula 2.0 05/07/16 00:00 Nasal Cannula 3.0 05/06/16 23:58 37.2 82 18 130/69 97 Nasal Cannula 2.0 05/06/16 21:58 93 19 146/64 97 Nasal Cannula 2.0 05/06/16 20:01 37.1 97 24 114/65 96 Nasal Cannula 3.0 05/06/16 20:00 Nasal Cannula 3.0 05/06/16 18:15 100 24 116/71 94 Nasal Cannula 3.0 05/06/16 17:00 101 35 98 05/06/16 16:09 36.7 97 22 131/80 98 Nasal Cannula 3.0 05/06/16 16:00 97 18 96 05/06/16 15:45 98 Nasal Cannula 3.0 05/06/16 15:00 102 24 95 Nasal Cannula 3.0 05/06/16 14:00 91 16 93 05/06/16 13:00 97 05/06/16 12:00 96 36 100 05/06/16 11:59 36.7 96 14 143/75 99 Nasal Cannula 3.0 05/06/16 11:30 100 Nasal Cannula 3.0 05/06/16 11:00 91 22 97 05/06/16 10:59 95 21 124/63 99 Physical Exam: RISHI drainage (30 cc this AM bloody) Abdomen: non distended, soft Laboratory Results: Results Past 24 Hours Test 05/06/16 11:40 05/06/16 16:07 05/06/16 16:35 05/06/16 20:29 Range/Units Bedside Glucose 143 160 167 70-99 mg/dl White Blood Count 7.27 4.8-10.8 K/uL Red Blood Count 3.33 4.7-6.1 M/uL Hemoglobin 9.9 14.0-18.0 g/dL Hematocrit 29.5 42-52 % Mean Corpuscular Volume 88.6 80-100 fL Mean Corpuscular Hemoglobin 29.7 25-34 pg Mean Corpuscular Hemoglobin Concent 33.6 32-36 g/dl RDW Standard Deviation 44.8 36.4-46.3 fL RDW Coefficient of Variation 13.9 11.5-14.5 % Platelet Count 195 130-400 K/uL Mean Platelet Volume 9.8 7.4-10.4 fL Nucleated RBC Absolute Count (auto) 0.07 0-0 K/uL Nucleated Red Blood Cells % 1.0 % Prothrombin Time 10.8 9.0-12.0 SECONDS Prothromb Time International Ratio 1.0 0.9-1.1 Test 05/07/16 00:16 05/07/16 04:07 05/07/16 05:06 05/07/16 06:35 Range/Units Bedside Glucose 168 168 179 70-99 mg/dl White Blood Count 6.06 4.8-10.8 K/uL Red Blood Count 3.10 4.7-6.1 M/uL Hemoglobin 9.3 14.0-18.0 g/dL Hematocrit 27.5 42-52 % Mean Corpuscular Volume 88.7 80-100 fL Mean Corpuscular Hemoglobin 30.0 25-34 pg Mean Corpuscular Hemoglobin Concent 33.8 32-36 g/dl RDW Standard Deviation 43.9 36.4-46.3 fL RDW Coefficient of Variation 13.7 11.5-14.5 % Platelet Count 201 130-400 K/uL Mean Platelet Volume 9.7 7.4-10.4 fL Nucleated RBC Absolute Count (auto) 0.05 0-0 K/uL Nucleated Red Blood Cells % 0.8 % Sodium Level 142 136-145 mmol/L Potassium Level 3.7 3.5-5.1 mmol/L Chloride Level 103 98-107 mmol/L Carbon Dioxide Level 32 21-32 mmol/L Anion Gap 7.0 3-11 mmol/L Blood Urea Nitrogen 14 7-18 mg/dl Creatinine 0.72 0.60-1.40 mg/dl Est Creatinine Clear Calc Drug Dose 162.6 ml/min Estimated GFR () 128.7 Estimated GFR (Non- 111.1 BUN/Creatinine Ratio 19.4 10-20 Random Glucose 170 70-99 mg/dl Calcium Level 8.4 8.5-10.1 mg/dl Phosphorus Level 3.1 2.5-4.9 mg/dl Magnesium Level 2.0 1.8-2.4 mg/dl Test 05/07/16 08:24 Range/Units Lab Scanned Report Blood Transfusion Tag [id number] Assessment & Plan lap appy, bleed from port site ok for transfer can advance diet but wants to stay on clears for now continue RISHI carter removed Anemia H&H stable VU Cr baseline agree...looks great clinically. rishi still bloody but dark/looks like old clot. h /h stable.
[2016-05-07] MEDS ORDERED: INSULIN GLARGINE SOLOSTAR 100 UNITS/ML 3 ML PEN SC ONE (11:30)
--- NOTE | 2016-05-07 11:38 | Pharmacy Progress Note ---
Glycemic Control: Progress Nt Date of Service May 07, 2016. Scope Glycemic Pharmacist consulted by Dr Wild on 05/06/16 for glycemic control and to write orders per [facility] inpatient glycemic control protocol. Objective Accuchecks BSG (last 24hrs): Test 05/06/16 11:40 05/06/16 16:07 05/06/16 20:29 05/07/16 00:16 Bedside Glucose 143 mg/dl (70-99) 160 mg/dl (70-99) 167 mg/dl (70-99) 168 mg/dl (70-99) Test 05/07/16 04:07 05/07/16 05:06 05/07/16 06:35 05/07/16 11:12 Bedside Glucose 168 mg/dl (70-99) 179 mg/dl (70-99) 183 mg/dl (70-99) Random Glucose 170 mg/dl (70-99) Laboratory Data (last 24hrs) Test 05/06/16 16:35 05/07/16 05:06 White Blood Count 7.27 K/uL 6.06 K/uL Anion Gap 7.0 mmol/L BUN/Creatinine Ratio 19.4 Blood Urea Nitrogen 14 mg/dl Creatinine 0.72 mg/dl Potassium Level 3.7 mmol/L Sodium Level 142 mmol/L HbA1c: Test 05/04/16 06:20 Hemoglobin A1c 6.4 % (4.5-5.6) H Recent Pertinent Medications Outpatient Anti-diabetic Regimen: * Trulicity 1.5 mg SC weekly * Metformin 1 g PO BIDM * Glipizide 10 mg PO BIDM * A1c = 6.4 % 05/04/16 The patient is currently receiving: * Correctional Insulin: Novolog Correction per scale ACHS Goal Range: Low 140 mg/dL - High 180 mg/dL Correction Factor: 25 mg/dL/unit * Prandial insulin: Per carb ratio of 1 unit per 15 grams CHO consumed Risk Factors for Insulin Resistance: * Recent Surgery: s/p appendectomy * Diet: clears Assessment & Plan ASSESSMENT: 05/06/16 * 46 yo M admitted to ICU s/p emergent appendectomy due to hypotension and blood loss * BSGs initially elevated due to acute stressors so an insulin drip was initiated per protocol * Over the past 24 hours, BSGs have greatly improved and then last evening patient actually was hypoglycemic * Due to BSG of 64 mg/dL, drip was turned off and patient was changed to Novolog scale only * At this point BSGs remain stable, but patient is to have diet advanced later this afternoon which could change things * For now, continue current plan and reassess in the AM * ADA & AACE recommend a goal blood sugar range 140-180 mg/dl for the majority of critically ill & non-critically ill patients 05/07/16 * Patient has received 3 units of insulin over the past 24 hours * He remains on clears by choice-could advance through the evening if able to tolerate * Although BSGs are within goal range, I notice they are creeping up since yesterday * Initiate low-dose Lantus (weight- stress of 1) and use a Lantus sliding scale tonight so that if BSGs are <180 mg/dL, he will not receive a second dose * Continue Novolog and reassess as diet advances PLAN FOR INPATIENT GLYCEMIC CONTROL: * Hold outpatient oral diabetes medications * Give Lantus 10 units X 1 now (around lunch time) * For HS dosing * If BSG >/= 180 mg/dL, give Lantus 10 units * If BSG <180 mg/dL, HOLD Lantus * Correctional Insulin with NOVOLOG per scale ACHS * Goal Range: Low 140 mg/dL - High 180 mg/dL * Correction Factor: 25 mg/dL/unit * Nutritional / Prandial insulin per carb ratio of 1 unit per 15 grams CHO consumed * Please note that the plan above was derived based on current level of insulin resistance and hospital stress. These recommendations are appropriate for inpatient admission only. Plan of care upon discharge will need to be reassessed to avoid potential outpatient hypo/hyperglycemia. Thank you.
--- NOTE | 2016-05-07 14:09 | Progress Note ---
Subjective Date of Service: May 07, 2016. Subjective Pt evaluation today including: conversation w/ patient, conversation w/ family pt still with pain in abdomen, RYDER still with sanguinous drainage, some flatus no stool Problem List Medical Problems: (1) Appendicitis Status: Acute Review of Systems Constitutional: + fatigue, + weakness, No chills, No fever Respiratory: No cough, No shortness of breath, No wheezing Cardiac: No chest pain, No edema Abdomen: No diarrhea, No nausea, No pain, No vomiting Male : No dysuria, No incontinence, No urinary frequency Psychiatric: No anhedonism, No anxiety, No depression symptoms Objective Vital Signs Date Time Temp Pulse Resp B/P Pulse Ox O2 Delivery O2 Flow Rate FiO2 05/07/16 05:59 81 15 163/71 91 Nasal Cannula 2.0 05/07/16 04:08 37.2 89 13 127/64 99 Nasal Cannula 2.0 05/07/16 04:00 Nasal Cannula 2.0 05/07/16 01:58 78 15 136/42 93 Nasal Cannula 2.0 05/07/16 00:00 Nasal Cannula 3.0 05/06/16 23:58 37.2 82 18 130/69 97 Nasal Cannula 2.0 05/06/16 21:58 93 19 146/64 97 Nasal Cannula 2.0 05/06/16 20:01 37.1 97 24 114/65 96 Nasal Cannula 3.0 05/06/16 20:00 Nasal Cannula 3.0 05/06/16 18:15 100 24 116/71 94 Nasal Cannula 3.0 05/06/16 17:00 101 35 98 05/06/16 16:09 36.7 97 22 131/80 98 Nasal Cannula 3.0 05/06/16 16:00 97 18 96 05/06/16 15:45 98 Nasal Cannula 3.0 05/06/16 15:00 102 24 95 Nasal Cannula 3.0 05/06/16 14:00 91 16 93 05/06/16 13:00 97 05/06/16 12:00 96 36 100 05/06/16 11:59 36.7 96 14 143/75 99 Nasal Cannula 3.0 05/06/16 11:30 100 Nasal Cannula 3.0 05/06/16 11:00 91 22 97 05/06/16 10:59 95 21 124/63 99 05/06/16 10:00 92 27 140/70 98 05/06/16 09:59 92 24 145/72 97 Nasal Cannula 3.0 05/06/16 09:00 93 22 143/70 98 05/06/16 08:59 93 16 115/55 99 05/06/16 08:00 89 23 146/68 98 05/06/16 08:00 Nasal Cannula 05/06/16 07:59 91 24 143/67 99 05/06/16 07:45 36.9 93 24 130/77 99 Nasal Cannula 3.0 05/06/16 07:30 99 Nasal Cannula 3.0 Physical Exam General Appearance: WD/WN, + mild distress Neck: supple, no JVD Respiratory/Chest: chest non-tender, lungs clear, + decreased breath sounds ( bases) Cardiovascular: regular rate, rhythm, + systolic murmur Abdomen: normal bowel sounds, + guarding, + tenderness Extremities: no pedal edema, no calf tenderness Neurologic/Psychiatric: alert, oriented x 3 Skin: normal color, warm/dry, no rash Laboratory Results Last 24 Hours Test 05/06/16 11:40 05/06/16 16:07 05/06/16 16:35 05/06/16 20:29 Bedside Glucose 143 mg/dl 160 mg/dl 167 mg/dl White Blood Count 7.27 K/uL Red Blood Count 3.33 M/uL Hemoglobin 9.9 g/dL Hematocrit 29.5 % Mean Corpuscular Volume 88.6 fL Mean Corpuscular Hemoglobin 29.7 pg Mean Corpuscular Hemoglobin Concent 33.6 g/dl RDW Standard Deviation 44.8 fL RDW Coefficient of Variation 13.9 % Platelet Count 195 K/uL Mean Platelet Volume 9.8 fL Nucleated RBC Absolute Count (auto) 0.07 K/uL Nucleated Red Blood Cells % 1.0 % Prothrombin Time 10.8 SECONDS Prothromb Time International Ratio 1.0 Test 05/07/16 00:16 05/07/16 04:07 05/07/16 05:06 05/07/16 06:35 Bedside Glucose 168 mg/dl 168 mg/dl 179 mg/dl White Blood Count 6.06 K/uL Red Blood Count 3.10 M/uL Hemoglobin 9.3 g/dL Hematocrit 27.5 % Mean Corpuscular Volume 88.7 fL Mean Corpuscular Hemoglobin 30.0 pg Mean Corpuscular Hemoglobin Concent 33.8 g/dl RDW Standard Deviation 43.9 fL RDW Coefficient of Variation 13.7 % Platelet Count 201 K/uL Mean Platelet Volume 9.7 fL Nucleated RBC Absolute Count (auto) 0.05 K/uL Nucleated Red Blood Cells % 0.8 % Sodium Level 142 mmol/L Potassium Level 3.7 mmol/L Chloride Level 103 mmol/L Carbon Dioxide Level 32 mmol/L Anion Gap 7.0 mmol/L Blood Urea Nitrogen 14 mg/dl Creatinine 0.72 mg/dl Est Creatinine Clear Calc Drug Dose 162.6 ml/min Estimated GFR () 128.7 Estimated GFR (Non- 111.1 BUN/Creatinine Ratio 19.4 Random Glucose 170 mg/dl Calcium Level 8.4 mg/dl Phosphorus Level 3.1 mg/dl Magnesium Level 2.0 mg/dl Assessment and Plan 46M consult for for medical management s/p appendectomy on 05/03n with complication and return to OR 05/05. complicated Appendicitis, after Return to OR recieved 6 units PRBCs, 2 units FFP, and 1 units platelets. Extubated on 05/05. given continued RYDER drainage will have bleeding scan to be sure bleeding is not so brisk. Diabetes mellitus type 2--Last HgbA1c checked 05/04/16 was 6.4 -Hold glipizide, metformin, Trulicity -Insulin sliding scale BSGs q ac and qhs Acute blood loss anemia---Last H&H stable at 9.9/29.5 HLD-Resume simvastatin 20 mg PO qhs on discharge Code Status -Level I, FULL RESUSCITATION STATUS
--- NOTE | 2016-05-07 15:35 | DIAGNOSTIC IMAGING REPORT ---
GI BLEEDING SCAN HISTORY: persistent bloody rishi drainage 4 days post op TECHNIQUE: Immediately following the intravenous administration of 22.5 mCi of technetium 99 M ultra tag, dynamic imaging of the abdomen and pelvis was performed for a total of 30 minutes. COMPARISON STUDY: Abdomen and pelvis CT 05/03/2016. FINDINGS: There is expected radiotracer uptake seen within the aorta, iliacs vessels, and IVC. There is no abnormal radiotracer uptake seen within or external to the bowel throughout the abdomen and pelvis. IMPRESSION: No abnormal radiotracer uptake seen within the abdomen or pelvis to suggest active GI bleed. Electronically signed by: Tarun Serra M.D. 05/07/2016 3:33 PM Dictated Date/Time: 05/07/2016 3:27 PM
[2016-05-07] MEDS ORDERED: INSULIN GLARGINE SOLOSTAR 100 UNITS/ML 3 ML PEN SC SCH (21:00)
[2016-05-07] MEDS: ENOXAPARIN 40 MG/0.4 ML SYR SQ SCH (22:08)
[2016-05-08 00:11] VITALS: BP 130/71; PULSE 97; TEMP 37.6; O2SAT 97
[2016-05-08] MEDS ORDERED: ALUMINUM/MAGNESIUM SUSP 30 ML UDC ONE (03:29)
[2016-05-08] MEDS ORDERED: NURSING VERBAL MED ORDER ONE (03:30)
[2016-05-08 03:45] VITALS: BP 135/73; PULSE 102; TEMP 37.3; O2SAT 98
[2016-05-08] MEDS ORDERED: ALUMINUM/MAGNESIUM SUSP 30 ML UDC PO PRN (03:45)
[2016-05-08] MEDS ORDERED: SIMETHICONE 80 MG CHEW PO PRN (03:45)
[2016-05-08 03:50] VITALS: BP 117/68; PULSE 84; TEMP 36.5; O2SAT 98
[2016-05-08 06:06] LABS: HEMATOCRIT 30.3 % (42-52); MEAN CELL VOLUME 87.6 fL (80-100); MEAN CORPUSCULAR HEMOGLOBIN 29.8 pg (25-34); MEAN PLATELET VOLUME 9.7 fL (7.4-10.4); PLATELET COUNT 256 K/uL (130-400); RED BLOOD COUNT 3.46 M/uL (4.7-6.1); WHITE BLOOD COUNT 6.87 K/uL (4.8-10.8)
[2016-05-08 08:00] VITALS: BP 127/80; PULSE 102; TEMP 37.3; O2SAT 96
[2016-05-08] MEDS: INSULIN ASPART 100 UNITS/ML 3 ML PEN SC SCH ×2 (08:44→12:05)
--- NOTE | 2016-05-08 08:45 | Surgery Progress Note ---
Surgery Progress Note Date of Service May 08, 2016. Subjective Post OP Day: 5 + bowel movement, + diet (regular), + feeling well Objective Vital Signs: Date Time Temp Pulse Resp B/P Pulse Ox O2 Delivery O2 Flow Rate FiO2 05/08/16 04:00 Room Air 05/08/16 03:45 37.3 102 20 135/73 98 Room Air 05/08/16 00:11 37.6 97 16 130/71 97 Room Air 05/08/16 00:05 Room Air 05/07/16 20:00 37.2 104 22 119/80 95 Room Air 05/07/16 20:00 Room Air 05/07/16 16:00 Room Air 05/07/16 15:38 37.1 94 20 117/80 94 Room Air 05/07/16 12:00 Room Air 05/07/16 12:00 Room Air 05/07/16 11:12 36.7 87 15 132/72 92 Room Air 05/07/16 10:00 88 19 Physical Exam: RYDER drainage (50 cc overnight) Abdomen: soft Incision(s): clean, dry Laboratory Results: Results Past 24 Hours Test 05/07/16 11:12 05/07/16 15:44 05/07/16 16:11 05/07/16 20:40 Range/Units Bedside Glucose 183 185 196 70-99 mg/dl Hemoglobin 10.7 14.0-18.0 g/dL Hematocrit 31.0 42-52 % Test 05/08/16 05:10 05/08/16 06:06 Range/Units White Blood Count 6.87 4.8-10.8 K/uL Red Blood Count 3.46 4.7-6.1 M/uL Hemoglobin 10.3 14.0-18.0 g/dL Hematocrit 30.3 42-52 % Mean Corpuscular Volume 87.6 80-100 fL Mean Corpuscular Hemoglobin 29.8 25-34 pg Mean Corpuscular Hemoglobin Concent 34.0 32-36 g/dl RDW Standard Deviation 42.5 36.4-46.3 fL RDW Coefficient of Variation 13.5 11.5-14.5 % Platelet Count 256 130-400 K/uL Mean Platelet Volume 9.7 7.4-10.4 fL Nucleated RBC Absolute Count (auto) 0.05 0-0 K/uL Nucleated Red Blood Cells % 0.7 % Bedside Glucose 214 70-99 mg/dl Assessment & Plan lap appy, bleed from port site tolerating diet stable for discharge will send home with drain and remove next week in office seen this morning by Dr. Reynoso Anemia H&H stable VU Cr baseline
[2016-05-08] MEDS ORDERED: INSULIN GLARGINE SOLOSTAR 100 UNITS/ML 3 ML PEN SC SCH ×2 (09:00)
[2016-05-08 12:33] VITALS: BP 127/80; PULSE 102; TEMP 37.3; O2SAT 96
--- NOTE | 2016-05-08 15:22 | DISCHARGE SUMMARY ---
PRIMARY DISCHARGE DIAGNOSES: 1. Acute appendicitis. 2. Hemorrhagic shock. 3. Postoperative anemia. 4. Metabolic acidosis. 5. Diabetes mellitus. 6. Acute kidney injury. 7. Obesity. PROCEDURES PERFORMED: 1. Laparoscopic appendectomy on 05/03/2016. 2. Laparoscopy with oversew of a port site bleed and abdominal washout. CONSULTATIONS: 1. [facility] duct installer to assist in evaluation and management of hypotension and tachycardia in PACU and postoperative care. 2. [facility] hospitalist to assist in medical management. HOSPITAL COURSE: The patient is a 46-year-old male who presented to the Emergency Department with right lower quadrant pain that began earlier in the morning. He had a mildly elevated white count with a left shift and a CT which was consistent with acute appendicitis. He was taken to the operating room that afternoon for laparoscopic appendectomy. The procedure was well tolerated. He was transferred to recovery in stable condition. While in PACU, he became hypotensive and tachycardic. He was started on phenylephrine drip and was evaluated further with labs, chest x-ray, EKG. Warehouse Shift Supervisor was consulted and they performed a bedside ultrasound which showed intraabdominal fluid. His Hgb had dropped from 16 to 10. Central line and A-line were placed and he was taken back to the operating room for diagnostic laparoscopy. The left lower quadrant 12 mm trocar site was identified as the site of bleeding and was ligated using Endoclose and suture x2. The abdomen was thoroughly irrigated and around 3 liters of old blood and hematoma was evacuated. We inspected the appendiceal staple lines which were hemostatic. A RYDER drain was placed in the pelvis. He was transferred to ICU intubated and on vasopressors. He received a total of 6 units packed red blood cells, 2 units of FFP and 1 pack of platelets perioperatively. He had metabolic acidosis overnight which was being corrected. Overall, he had stabilized by postoperative day 1 but was not yet ready for extubation. He was off vasopressors by postoperative day 2. RYDER drainage was decreasing, his H&H remained stable. He was extubated on postoperative day 2. He continued to make good progress. Oral intake was began on postoperative day 3. By that time his creatinine returned to baseline having peaked at 1.6. Insulin drip was changed to a subQ sliding scale. Lovenox had been added to SCDs once H&H was stable. [facility] Hospitalist service was consulted when he was stable for transfer out of the ICU. He was transferred to PCU status on postoperative day 4. RYDER drainage remained about 30 mL per shift. Bleeding scan was negative at that time. Clinically, he was doing well. He was advancing his diet and increasing activity. H&H equilibrated at 10 and 30. On postoperative day 5, he was stable for discharge. He was tolerating a regular diet and oral analgesics that time. His abdomen was benign and incisions were healing well. RYDER drainage was 50 cc overnight and he will be sent home with the drain. DISCHARGE INSTRUCTIONS: Discharge home. Follow up in Dr. Reynoso's office in 5 days for removal of the drain. Continue to empty the drain 2-3 times daily and record daily output. OK to shower with the drain. DISCHARGE MEDICATIONS: New meds are [place] 1-2 tablets every 4 hours as needed. Resume his home medications: Trulicity 1.5 mg subQ weekly, glipizide 10 mg p.o. b.i.d., metformin 1000 mg b.i.d., and Zocor 20 mg at bedtime. MTDD
--- NOTE | 2016-05-08 15:55 | Progress Note ---
Progress Note pt dishcarged prior to my rounds, bleeding scan is negative
== END 2016-05-08 13:01 | disposition home or self-care (01) | DRG 341 ==
LOC: ENRESERVDT → ENRESERVTM → C.EDB 08:37 → C.MSW 10:02 → OBSVTOIN 15:54 → C.MSICU 18:34
PROVIDERS: ADMIT Surgery; ATTEND Surgery
PROC: 0W3G4ZZ Control Bleeding in Peritoneal Cavity, Percutaneous Endoscopic Approach (ICD-10-PCS; 2016-05-03)
PROC: 0D9W40Z Drainage of Peritoneum with Drainage Device, Percutaneous Endoscopic Approach (ICD-10-PCS; 2016-05-03)
PROC: 03HY32Z Insertion of Monitoring Device into Upper Artery, Percutaneous Approach (ICD-10-PCS; 2016-05-03)
PROC: 5A1945Z Respiratory Ventilation, 24-96 Consecutive Hours (ICD-10-PCS; 2016-05-03)
PROC: 05HD33Z Insertion of Infusion Device into Right Cephalic Vein, Percutaneous Approach (ICD-10-PCS; 2016-05-03)
PROC: 0DTJ4ZZ Resection of Appendix, Percutaneous Endoscopic Approach (ICD-10-PCS; principal; 2016-05-03 15:30)
DX: K35.80 Unspecified acute appendicitis (principal); T81.19XA Other postprocedural shock, initial encounter; J80 Acute respiratory distress syndrome; D62 Acute posthemorrhagic anemia; Z68.42 Body mass index [BMI] 45.0-49.9, adult; E87.2 Acidosis; K76.0 Fatty (change of) liver, not elsewhere classified; K44.9 Diaphragmatic hernia without obstruction or gangrene; I95.89 Other hypotension; E66.9 Obesity, unspecified; E83.51 Hypocalcemia; E78.5 Hyperlipidemia, unspecified; K42.9 Umbilical hernia without obstruction or gangrene; E11.65 Type 2 diabetes mellitus with hyperglycemia; Z83.3 Family history of diabetes mellitus; Y83.8 Other surgical procedures as the cause of abnormal reaction of the patient, or of later complication, without mention of misadventure at the time of the procedure; Y92.238 Other place in hospital as the place of occurrence of the external cause

== ENCOUNTER → 2016-05-15 | Outpatient (CLI) | payer BC ==
[~2016-05-15] MED LIST: DULA0.5I SC; GLIP-197 PO; HYDR-5688 PO; METF-841 PO; SIMV20TA2 PO
[2016-05-15 12:18] LABS: HEMATOCRIT 37.5 % (42-52); MEAN CELL VOLUME 90.6 fL (80-100); MEAN CORPUSCULAR HGB CONC 33.1 g/dl (32-36); MEAN PLATELET VOLUME 9.7 fL (7.4-10.4); PLATELET COUNT 416 K/uL (130-400); RED BLOOD COUNT 4.14 M/uL (4.7-6.1); WHITE BLOOD COUNT 7.15 K/uL (4.8-10.8)
[2016-05-15 12:54] LABS: BASO ABS # 0.06 K/uL (0-0.2); BASOPHIL % 0.9 % (0-2); COMPLETE YES; EOSINOPHIL % 2.6 %; LYMPH ABS # 1.37 K/uL (1.2-3.4); LYMPHOCYTE % 19.1 %; MYELOCYTE % 0.9 %; NEUTROPHILS % 69.5 %
== END | disposition home or self-care (01) ==
LOC: C.LABBFT 07:57
PROVIDERS: ATTEND Surgery
DX: Z01.812 Encounter for preprocedural laboratory examination (principal); D64.9 Anemia, unspecified

== ENCOUNTER → 2016-06-13 | Outpatient (CLI) | payer BC ==
[2016-06-13 12:37] LABS: ALT/SGPT 64 U/L (12-78); AST/SGOT 33 U/L (15-37); BLOOD UREA NITROGEN 12 mg/dl (7-18); BUN/CREATININE RATIO 14.3 (10-20); CALCIUM 9.4 mg/dl (8.5-10.1); CARBON DIOXIDE 27 mmol/L (21-32); CHLORIDE 106 mmol/L (98-107); CHOLESTEROL 101 mg/dl (0-200); CREATININE 0.86 mg/dl (0.60-1.40); GLUCOSE 100 mg/dl (70-99); POTASSIUM 4.5 mmol/L (3.5-5.1); SODIUM 142 mmol/L (136-145); TRIGLYCERIDES 101 mg/dl (0-150); VERY LOW DENSITY LIPOPROT CALC 20 mg/dl
[2016-06-13 12:39] LABS: ALB/GLOB RATIO 1.3 (0.9-2); ALKALINE PHOSPHATASE 59 U/L (45-117); CHOLESTEROL/HDL RATIO 2.6; HDL CHOLESTEROL 39 mg/dl; LDL CHOLESTEROL CALCULATED 42 mg/dl
[2016-06-13 12:46] LABS: ESTIMATED AVERAGE GLUCOSE 123 mg/dl; HA1C FLAG Normal (Normal)
[2016-06-13 19:40] LABS: RATIO 9.3 mcg/mg (0-30.0)
== END | disposition home or self-care (01) ==
LOC: C.LABBFT 11:15
PROVIDERS: ATTEND Internal Medicine
DX: E11.65 Type 2 diabetes mellitus with hyperglycemia (principal)

== ENCOUNTER → 2016-12-27 | Outpatient (CLI) | payer BC ==
[~2016-12-27] MED LIST changes: -HYDR-5688 PO
[2016-12-27 12:15] LABS: HEMATOCRIT 47.4 % (42-52); MEAN CORPUSCULAR HEMOGLOBIN 30.4 pg (25-34); MEAN CORPUSCULAR HGB CONC 31.6 g/dl (32-36); MEAN PLATELET VOLUME 10.6 fL (7.4-10.4); PLATELET COUNT 265 K/uL (130-400); RED BLOOD COUNT 4.94 M/uL (4.7-6.1); WHITE BLOOD COUNT 5.16 K/uL (4.8-10.8)
[2016-12-27 12:28] LABS: ALT/SGPT 56 U/L (12-78); BLOOD UREA NITROGEN 14 mg/dl (7-18); BUN/CREATININE RATIO 15.7 (10-20); CALCIUM 8.5 mg/dl (8.5-10.1); CARBON DIOXIDE 26 mmol/L (21-32); CHLORIDE 106 mmol/L (98-107); CHOLESTEROL 100 mg/dl (0-200); CREATININE 0.92 mg/dl (0.60-1.40); GLUCOSE 180 mg/dl (70-99); POTASSIUM 4.4 mmol/L (3.5-5.1); SODIUM 139 mmol/L (136-145)
[2016-12-27 12:38] LABS: ALB/GLOB RATIO 1.2 (0.9-2); ALKALINE PHOSPHATASE 71 U/L (45-117); AST/SGOT 26 U/L (15-37); CHOLESTEROL/HDL RATIO 3.4; HDL CHOLESTEROL 29 mg/dl; LDL CHOLESTEROL CALCULATED 26 mg/dl; TRIGLYCERIDES 224 mg/dl (0-150); VERY LOW DENSITY LIPOPROT CALC 45 mg/dl
[2016-12-27 12:47] LABS: ESTIMATED AVERAGE GLUCOSE 169 mg/dl; HA1C FLAG Normal (Normal)
== END | disposition home or self-care (01) ==
LOC: C.LABBFT 08:05
PROVIDERS: ATTEND Internal Medicine
DX: E11.9 Type 2 diabetes mellitus without complications (principal)

== ENCOUNTER → 2017-07-24 | Outpatient (CLI) | payer BC ==
[2017-07-24 12:57] LABS: HEMOGLOBIN A1C 8.2 % (4.5-5.6)
[2017-07-24 13:20] LABS: ALBUMIN 4.1 gm/dl (3.4-5.0); ALT/SGPT 62 U/L (12-78); BLOOD UREA NITROGEN 12 mg/dl (7-18); CALCIUM 9.3 mg/dl (8.5-10.1); CARBON DIOXIDE 31 mmol/L (21-32); CHOLESTEROL 99 mg/dl (0-200); CREATININE 0.83 mg/dl (0.60-1.40); GLUCOSE 127 mg/dl (70-99); POTASSIUM 4.5 mmol/L (3.5-5.1); SODIUM 138 mmol/L (136-145)
[2017-07-24 13:23] LABS: ALKALINE PHOSPHATASE 62 U/L (45-117); AST/SGOT 33 U/L (15-37); LDL CHOLESTEROL CALCULATED 47 mg/dl; TOTAL PROTEIN 7.5 gm/dl (6.4-8.2)
== END | disposition home or self-care (01) ==
LOC: C.LABBFT 10:22
PROVIDERS: ATTEND Internal Medicine
DX: E11.65 Type 2 diabetes mellitus with hyperglycemia (principal); E78.00 Pure hypercholesterolemia, unspecified

== ENCOUNTER 2024-12-31 22:21 | Inpatient (IN) ==
--- NOTE | 2024-12-31 22:44 | Emergency Department Note ---
History of Present Illness General Chief complaint: Fever Stated complaint: HIGH FEVER Time Seen by Provider: 12/31/24 22:26 History of Present Illness This is a 54-year-old male returning to the emergency department for evaluation of fever at home. Patient had recent urologic stenting for kidney stones, with stent removal. He did have some low-grade fever symptoms and was started on doxycycline by urology. Patient came into the ER last night for return of fever, where sepsis workup was reassuring. On CT scan performed roughly 24 hours ago the patient was found to have a 3 mm proximal ureteral fragment with mild right hydro. This seems to have been an improvement from his previous 6 mm stone. Urology did evaluate the patient here in the ER yesterday, and patient was given IV antibiotics and discharged on Omnicef. He was given strict return instructions, and states that tonight his temperature was as high as 102.9 F. Patient does not have nausea or vomiting. He is able to urinate. His symptoms of fever are improved with Tylenol and Motrin. Home Medications Medication Instructions Recorded Confirmed Type blood sugar diagnostic (OneTouch #100 ea 01/14/23 11/26/24 Rx Ultra Test strips) metformin 1,000 mg tablet 1,000 mg PO BID #180 tabs 03/22/24 12/31/24 Rx simvastatin 20 mg tablet 20 mg PO HS #90 tabs 09/22/24 12/31/24 Rx sildenafil 50 mg tablet 50 mg PO UD PRN Sexual Activity 11/24/24 12/31/24 History tirzepatide 15 mg/0.5 mL 15 mg subcut WK 11/24/24 12/31/24 History subcutaneous pen injector (Mounjaro) acetaminophen 500 mg tablet 500 mg PO UD PRN aches and pains 11/26/24 12/31/24 History (Tylenol Extra Strength) ibuprofen 600 mg tablet 600 mg PO Q6 PRN Pain 12/01/24 12/31/24 History tamsulosin 0.4 mg capsule 0.4 mg PO QAM #90 caps 12/03/24 12/31/24 Rx doxycycline hyclate 100 mg capsule 100 mg PO BID 7 days #14 caps 12/29/24 12/31/24 Rx cefdinir 300 mg capsule 300 mg PO BID 7 days #14 caps 12/30/24 12/31/24 Rx clotrimazole-betamethasone 1 1 applic topical HS 12/31/24 12/31/24 History %-0.05 % topical cream Allergies Allergy/AdvReac Type Severity Reaction Status Date / Time No Known Allergies Allergy Verified 12/31/24 23:43 Past Med/Surg History Problem List (Updated 01/01/25 @ 03:27 by Wale De Jesus PA-C) Fever (Acute) Hypomagnesemia Hypokalemia Hydronephrosis (Acute) Fever (Acute) Encounter for pre-operative examination Renal cyst (Chronic) Hydronephrosis concurrent with and due to calculi of kidney and ureter (Acute) Nocturnal hypoxemia Severe obstructive sleep apnea Tendinitis of left rotator cuff Ventral hernia Right hand paresthesia Tubular adenoma Medial epicondylitis of elbow Tendinitis of right rotator cuff Erectile dysfunction (Chronic) Liver enzyme elevation Obesity Tinea pedis Onychomycosis Hypercholesteremia (Chronic) Metabolic acidosis Diabetes mellitus (Chronic) Medical History Ventral hernia "Mild" No surgery History of colon polyps Renal cyst Per records, patient unaware Kidney stones Fatty liver Type 2 diabetes mellitus History of COVID-19 ~2020 Sleep apnea CPAP Hypercholesteremia "Borderline" Carpal tunnel syndrome of right wrist Hx injection, no surgery Surgical History S/P cystoscopy with ureteral stent placement 12/01/24, right History of colonoscopy History of tooth extraction History of wisdom tooth extraction History of appendectomy ~2014 Pt states during appendectomy, "they hit a blood vessel and I bled out and had to get blood, plasma, was in an induced coma for 3 days" Family History Grandfather (Maternal) Diabetes Grandfather (Paternal) Diabetes Grandmother (Maternal) Diabetes Grandmother (Paternal) Diabetes Other No family history of adverse response to anesthesia Denies family history of Ovarian cancer Prostate cancer Myocardial infarction Breast cancer Lung cancer Colorectal cancer Social History Smoking Status: Never smoker Second Hand Exposure: No; Do You Dip or Chew Tobacco: No; Hx Alcohol Use: No Hx Substance Use: No Preferred Language: Macedonian Communication Ability: Effective Hearing Ability: Normal Ambulance Driver Required: No Beliefs That Will Affect Care: None marital status: Current Living Situation: Spouse and Family Current Living Situation Comment: Lives with and daughter current occupational status: employed Feels Safe at Home: Yes Childhood Exposure to Second-Hand Smoke: No caffeine: Yes Dental Care, Regularly: Yes Physical Activity Frequency: Does not Exercise Seatbelt Use: always Sunscreen Use: Yes Assistive Devices: Contacts, CPAP and Glasses Review of Systems A total of 10 systems reviewed and were otherwise negative Physical Exam Vital Signs Vital Signs - 24 hr 12/31/24 22:23 12/31/24 23:15 12/31/24 23:30 Temperature 37.4 C Temperature Source Oral Pulse Rate 101 H 94 H 95 H Pulse Rate [Radial] Respiratory Rate 18 24 24 Respiratory Effort / Characteristics Non-Labored Spontaneous Respiratory Depth Normal Respiratory Pattern Blood Pressure 140/71 131/74 120/85 Blood Pressure [Right Arm] Blood Pressure Mean 94 85 87 Blood Pressure Mean [Right Arm] Pulse Oximetry 96 94 97 Oxygen Delivery Method Room Air Room Air Room Air Sepsis Recent Fever Within 48 Hours Yes Sepsis New/Unexplained Change in Mental Status No Sepsis Action Taken by Nursing No Action Required 12/31/24 23:45 12/31/24 23:57 01/01/25 00:15 Temperature 37.4 C Temperature Source Oral Pulse Rate 93 H 82 Pulse Rate [Radial] Respiratory Rate 24 24 Respiratory Effort / Characteristics Respiratory Depth Respiratory Pattern Blood Pressure 137/73 121/73 Blood Pressure [Right Arm] Blood Pressure Mean 89 82 Blood Pressure Mean [Right Arm] Pulse Oximetry 97 93 Oxygen Delivery Method Room Air Room Air Sepsis Recent Fever Within 48 Hours Sepsis New/Unexplained Change in Mental Status Sepsis Action Taken by Nursing 01/01/25 00:30 01/01/25 00:45 01/01/25 00:54 Temperature Temperature Source Pulse Rate 82 79 77 Pulse Rate [Radial] Respiratory Rate 22 24 Respiratory Effort / Characteristics Respiratory Depth Respiratory Pattern Blood Pressure 126/71 114/65 Blood Pressure [Right Arm] Blood Pressure Mean 92 75 Blood Pressure Mean [Right Arm] Pulse Oximetry 93 94 Oxygen Delivery Method Room Air Room Air Sepsis Recent Fever Within 48 Hours Sepsis New/Unexplained Change in Mental Status Sepsis Action Taken by Nursing 01/01/25 01:01 01/01/25 01:15 01/01/25 03:00 Temperature Temperature Source Pulse Rate 71 80 Pulse Rate [Radial] 75 Respiratory Rate 24 24 17 Respiratory Effort / Characteristics Non-Labored Spontaneous Respiratory Depth Normal Respiratory Pattern Regular Blood Pressure 133/72 128/75 Blood Pressure [Right Arm] 132/76 Blood Pressure Mean 84 84 Blood Pressure Mean [Right Arm] 94 Pulse Oximetry 94 97 98 Oxygen Delivery Method Room Air Room Air Room Air Sepsis Recent Fever Within 48 Hours Sepsis New/Unexplained Change in Mental Status Sepsis Action Taken by Nursing VITALS: Vitals are noted on the nurse's note and reviewed by myself. Vital signs stable. GENERAL: Well-developed, well-nourished, white male, who is in no acute distress and resting comfortably. Patient is cooperative with the examination. HEAD: Normocephalic atraumatic. MOUTH: Mucous membranes moist. Pharynx without erythema, blood, or exudate. Uvula midline. Airway patent. NECK: Supple without nuchal rigidity. No lymphadenopathy. No thyromegaly. Cervical spine is nontender. HEART: Regular rate and rhythm without murmurs gallops or rubs. LUNGS: Clear to auscultation bilaterally without wheezes, rales or rhonchi. No retractions or accessory muscle use. ABDOMEN: Positive normal bowel sounds x 4. Soft, nontender, without masses or organomegaly. No guarding or rebound tenderness. MUSCULOSKELETAL: No muscle atrophy, erythema, or edema noted. Full range of motion in all extremities Course Administered Medications Potassium Chloride (K Wing / Wtr) 10 meq in 100 mls @ 100 mls/hr IV Q1H [facility] Stop: 01/01/25 05:44 Last Admin: 01/01/25 03:20 Dose: 100 mls/hr Documented By: SUNDEEP Magnesium Sulfate/Dextrose (Magnesium Sulfate / D5w) 1 gm in 100 mls @ 50 mls/hr IV Q2H [facility] Stop: 01/01/25 10:44 Last Admin: 01/01/25 03:20 Dose: 50 mls/hr Documented By: SUNDEEP Parenteral Electrolytes (Plasma-Lyte A Ph 7.4) 1,000 mls @ 125 mls/hr IV .Q8H [facility] Stop: 01/04/25 02:44 Last Admin: 01/01/25 03:21 Dose: 125 mls/hr Documented By: SUNDEEP Discontinued Medications Sodium Chloride (Nss) 1,000 mls @ 999 mls/hr IV .Q1H1M ONE Stop: 12/31/24 23:28 Last Infusion: 12/31/24 23:48 Dose: Infused Documented By: Admin: 12/31/24 22:48 Dose: 999 mls/hr Documented By: MAYITO Acetaminophen (Ofirmev) 1,000 mg in 100 mls @ 400 mls/hr IV NOW STA Stop: 12/31/24 22:52 Last Infusion: 12/31/24 23:08 Dose: Infused Documented By: Admin: 12/31/24 22:48 Dose: 400 mls/hr Documented By: MAYITO Ceftriaxone Sodium (Rocephin) 2,000 mg in 50 mls @ 100 mls/hr IV NOW STA Stop: 01/01/25 03:05 Last Admin: 01/01/25 03:20 Dose: 100 mls/hr Documented By: [facility] Medical Decision Making Differential Diagnosis Differential diagnosis: Etiologies such as viral syndrome, otitis, pharyngitis, pneumonia, influenza, meningitis, urinary tract infection, septic arthritis, soft tissue infectious process, intra-abdominal process, sepsis, bacteremia, as well as others were entertained. Laboratory Data 12/31/24 22:40 12/31/24 22:40 Lab Results 12/31/24 12/31/24 Range/Units 22:40 23:59 WBC 7.33 (4.8-10.8) K/ul RBC 3.96 L (4.70-6.10) M/uL Hgb 11.7 L (14.0-18.0) g/dl Hct 35.1 L (42.0-52.0) % MCV 88.6 (80.0-100.0) fL MCH 29.5 (25.0-34.0) pg MCHC 33.3 (32.0-36.0) g/dL RDW Std Deviation 40.8 (36.4-46.3) fL RDW Coeff of Braeden 12.4 (11.5-14.5) % Plt Count 281 (130-400) K/uL MPV 9.8 (9.4-12.4) fL Immature Gran % (Auto) 0.3 % Neut % (Auto) 73.9 % Lymph % (Auto) 10.9 % Howard % (Auto) 12.3 % Eos % (Auto) 1.6 % Baso % (Auto) 1.0 % Neut # (Auto) 5.42 (1.40-6.50) K/uL Lymph # (Auto) 0.80 L (1.20-3.40) K/uL Howard # (Auto) 0.90 H (0.11-0.59) K/uL Eos # (Auto) 0.12 (0.00-0.50) K/uL Baso # (Auto) 0.07 (0.00-0.20) K/uL Immature Gran # (Auto) 0.02 (0.01-0.20) K/uL Sodium 139 (136-145) mmol/L Potassium 3.3 L (3.5-5.1) mmol/L Chloride 102 (98-107) mmol/L Carbon Dioxide 28 (21-32) mmol/L Anion Gap 9 (3-11) BUN 14 (6-23) mg/dl Creatinine 0.97 (0.6-1.4) mg/dl Est Cr Clr Drug Dosing 100.8 ml/min eGFR 92.19 BUN/Creatinine Ratio 14.4 (10-20) Glucose 155 H (70-99(Fasting)) mg/dl Lactate 1.6 (0.4-2.0) mmol/L Calcium 8.9 (8.6-10.3) mg/dl Magnesium 1.4 L (1.7-2.4) mg/dl Total Bilirubin 0.7 (0.2-1.0) mg/dl AST 14 (13-39) U/L ALT 19 (7-52) U/L Alkaline Phosphatase 61 (34-104) U/L Total Protein 7.1 (6.0-8.3) gm/dl Albumin 3.8 (3.4-5.0) gm/dl Globulin 3.3 (2.5-4.0) gm/dl Albumin/Globulin Ratio 1.2 (0.9-2) Lipase 31 (11-82) U/L Urine Color Yellow Urine Appearance Clear (Clear) Urine pH 5.0 (4.5-7.5) Ur Specific [place] 1.012 (1.000-1.030) Urine Protein Trace H (Negative) Urine Glucose (UA) Negative (Negative) Urine Ketones Negative (Negative) Urine Blood 3+ H (Negative) Urine Nitrite Negative (Negative) Urine Bilirubin Negative (Negative) Urine Urobilinogen Negative (Negative) Ur Leukocyte Esterase Trace H (Negative) Urine WBC (Auto) 6-10 H (0-5) /hpf Urine RBC (Auto) 3-5 H (0-2) /hpf U Hyaline Cast (Auto) 0-2 (0-2) /lpf U Epithel Cells (Auto) 0-2 (0-2) /hpf Urine Bacteria (Auto) None Seen (None Seen) Urine Comment Adenovirus (PCR) Not Detected (NotDetected) B. pertussis DNA (PCR) Not Detected (NotDetected) B.parapertussis DNA PCR Not Detected (NotDetected) C. pneumoniae DNA (PCR) Not Detected (NotDetected) Coronavirus OC43 (PCR) Not Detected (NotDetected) Coronavirus HKU1 (PCR) Not Detected (NotDetected) Coronavirus 229E (PCR) Not Detected (NotDetected) SARS-CoV-2 (PCR) Not Detected (NotDetected) Coronavirus NL63 (PCR) Not Detected (NotDetected) Human Metapneumovir PCR Not Detected (NotDetected) Influenza Type A (PCR) Not Detected (NotDetected) Influenza Type B (PCR) Not Detected (NotDetected) M. pneumoniae (PCR) Not Detected (NotDetected) Parainfluenza 1 (PCR) Not Detected (NotDetected) Parainfluenza 2 (PCR) Not Detected (NotDetected) Parainfluenza 3 (PCR) Not Detected (NotDetected) Parainfluenza 4 (PCR) Not Detected (NotDetected) RSV (PCR) Not Detected (NotDetected) Entero/Rhino (PCR) Not Detected (NotDetected) MDM Narrative Physical exam and history were performed. Nursing notes, EMR, and Medication List were personally reviewed. No social concerns were identified as barriers to patients care. History was provided by the Patient and who is at bedside. Patient appears to have return of fever bringing him to the ER. He was seen and evaluated in this department yesterday with identical complaints. He is on both doxycycline and Omnicef currently, despite this has been running a fever over 102 F at home. IV access was established and labs were obtained. Blood cultures and lactic were performed. Patient was hydrated with normal saline. BioFire collected. Patient's blood work is as above and was reviewed. He does not have a significant elevated white blood cell count, gross anemia, bandemia, or significant electrolyte imbalance. Transaminases are not diagnostic. Lactic is negative with blood cultures pending. BioFire negative. Urine with blood and trace esterase. Case was discussed with my attending physician. Escalation of care is felt to be necessary for this patient. He is on antibiotics and continues to report fever with known ureteral stone. He does not acutely appear septic, however this is certainly a concern. He also has failed home treatment. Case was discussed then with the on-call hospitalist team, who agreed to evaluate the patient here in the ER. Please see their dictation for further patient course, plan, disposition. The chart was completed utilizing [employer] Speech Voice Recognition Software. Grammatical errors, random word insertions, pronoun errors, and incomplete sentences are an occasional consequence of this system due to software limitations, ambient noise, and hardware issues. Any formal questions or concerns about the content, text, or information contained within the body of this dictation should be directly addressed to the provider for clarification. Impression & Plan Hydronephrosis concurrent with and due to calculi of kidney and ureter, Fever Discharge Plan Visit Data Chief Complaint: Fever Stated Complaint: HIGH FEVER ED Provider: Enzo Hicks ED Midlevel Provider: Wale De Jesus Discharge Problem: Hydronephrosis concurrent with and due to calculi of kidney and ureter, Fever Patient Disposition: Being Evaluated by Hospitalist Condition: Fair Forms Stand Alone Forms: My [facility] [email or web address] Prescriptions Prescriptions: No Action (DME) OneTouch Ultra Test Strip See Rx Instructions .Route Qty: 100 3RF Rx Instructions: pt test once a day tamsulosin 0.4 mg capsule 0.4 mg PO QAM Qty: 90 3RF simvastatin 20 mg tablet 20 mg PO HS Qty: 90 3RF Rx Instructions: Refill request received from pharmacy metformin 1,000 mg tablet 1,000 mg PO BID Qty: 180 3RF acetaminophen [Tylenol Extra Strength] 500 mg tablet 500 mg PO UD PRN (Reason: aches and pains) doxycycline hyclate 100 mg capsule 100 mg PO BID 7 Days Qty: 14 0RF Rx Instructions: STARTED 12/29/24 FOR 7 DAYS sildenafil 50 mg tablet 50 mg PO UD PRN (Reason: Sexual Activity) Mounjaro 15 mg/0.5 mL pen injector 15 mg subcut WK Patient Comments: sundays Rx Instructions: SUNDAYS cefdinir 300 mg capsule 300 mg PO BID 7 Days Qty: 14 0RF Rx Instructions: STARTED 12/30/24 FOR 7 DAYS ibuprofen 600 mg Tablet 600 mg PO Q6 PRN (Reason: Pain) clotrimazole-betamethasone 1-0.05 % cream 1 applic topical HS Rx Instructions: Apply small/pea-sized amount topically before bed Referrals Referrals: Driss Billingsley, [Primary Care Provider] -
[2024-12-31] MEDS: SODIUM CHLORIDE 0.9% 1,000 ML IV ONE (22:48)
[2024-12-31] MEDS: ACETAMINOPHEN 1,000 MG/100 ML VIAL IV STA (22:48)
[2024-12-31 23:16] LABS: Appearance Urine Clear (Clear); Bacteria Urine Automated None Seen (None Seen); Cast Urine Automated 0-2 /lpf (0-2); Epithelial Cell Urine Auto 0-2 /hpf (0-2); Glucose Urine UA Negative (Negative)
[2024-12-31 23:20] LABS: Hematocrit (blood only) 35.1 % (42.0-52.0); Hemoglobin 11.7 g/dl (14.0-18.0); Immature Granulocytes # (auto) 0.02 K/uL (0.01-0.20); Immature Granulocytes % (auto) 0.3 %; Mean Corpuscular Hemoglobin 29.5 pg (25.0-34.0); Mean Corpuscular Volume 88.6 fL (80.0-100.0); Platelet Count 281 K/uL (130-400); RDW Standard Deviation 40.8 fL (36.4-46.3); Red Blood Count 3.96 M/uL (4.70-6.10); White Blood Count 7.33 K/ul (4.8-10.8)
[2024-12-31 23:36] LABS: Alanine Aminotransferase 19.0 U/L (7-52); Albumin Globulin Ratio 1.2 (0.9-2); Alkaline Phosphatase 61.0 U/L (34-104); Anion Gap 9.0 (3-11); Bilirubin,Total 0.7 mg/dl (0.2-1.0); Blood Urea Nitrogen 14.0 mg/dl (6-23); Calcium 8.9 mg/dl (8.6-10.3); Carbon Dioxide 28.0 mmol/L (21-32); Chloride 102.0 mmol/L (98-107); Creatinine Clr Calc Pharmacy 100.8 ml/min; Globulin 3.3 gm/dl (2.5-4.0); Glucose 155.0 mg/dl (70-99(Fasting)); Lipase 31.0 U/L (11-82); Magnesium 1.4 mg/dl (1.7-2.4); Potassium 3.3 mmol/L (3.5-5.1); Sodium 139.0 mmol/L (136-145); Total Protein 7.1 gm/dl (6.0-8.3)
[2025-01-01 01:17] LABS: Chlamydia pneumoniae PCR Not Detected (NotDetected); Coronavirus 229E PCR Not Detected (NotDetected); Coronavirus CoV-2 (COVID19)PCR Not Detected (NotDetected); Coronavirus HKU1 PCR Not Detected (NotDetected); Coronavirus NL63 PCR Not Detected (NotDetected); Coronavirus OC43PCR Not Detected (NotDetected); Human Metapneumovirus PCR Not Detected (NotDetected); Parainfluenza Virus 1 PCR Not Detected (NotDetected); Parainfluenza Virus 2 PCR Not Detected (NotDetected); Parainfluenza Virus 3 PCR Not Detected (NotDetected); Parainfluenza Virus 4 PCR Not Detected (NotDetected); Respiratory Syncytial VirusPCR Not Detected (NotDetected); Rhinovirus/Enterovirus PCR Not Detected (NotDetected)
--- NOTE | 2025-01-01 01:48 | History & Physical Report ---
Date of Service January 01, 2025 Assessment & Plan (1) Fever: (2) Hydronephrosis concurrent with and due to calculi of kidney and ureter: (3) Hypokalemia: (4) Hypomagnesemia: Plan 54-year-old male PMHx DM, hypercholesterolemia, MATEO, BPH, and prior renal calculi who presents for onset of fever. ED course without evidence of sepsis, no leukocytosis, and UA ? starting infection. He does have slight electrolyte abnormalities (K and Mg). CTAP from prior evaluation revealed hydronephrosis with calculi on R side. Pt to be admitted for concerns of fever in setting of known stone. Hemodynamically stable at time of admission. #Fevers/R hydronephrosis with calculus Follows with urology; S/p laser lithotripsy to R kidney with R ureteral stent on 12/13/2024 and removal on 12/27/2024. Evaluated in ED 12/30/2024 and started on cefdinir. Ongoing fevers despite oral antibiotics. Pt is overall stable at time of admission with no evidence of sepsis and is hemodynamically stable. - CBC without leukocytosis, H/H 11.7/35.1; CMP WNL Cr and BUN; lactate 1.6 - CB C, BMP am - UA LE/WBC/blood - pending prior cx - CTAP (12/30/2024) R hydronephrosis with 3mm calculus/fragment of proximal R ureter, no pyelonephritis - NPO - Urine strainer - VS q4h -- notify provider of fever/tachycardia - IVF plasma-lyte @ 125 mL/hr - Zofran prn N/V - Acetaminophen prn fever/pain, morphine prn severe pain - Continue tamsulosin - Ceftriaxone IV x 1 given at admission - additional abx pending clinical course - Urology consulted -- appreciate input + recs #Hypokalemia/Hypomagnesemia Asx at present. - K 3.3, Mg 1.4 - BMP, Mg am - Mag sulfate 4g IV first - KCl 20 mEq IV - EKG pending #Anemia Slightly decreased H/H from prior, no known bleeding per patient. - H/H 11.7/35.1, plt WNL - Trend CBC - Iron panel, vitamin B12, and folate pending - CTAP 12/30/2024 unremarkable for etiology #T2DM H/o T2DM. At home regimen includes metformin, Mounjaro. - Glucose on arrival 155; Most recent A1c 08/2024 @ 6.5% - SSI with target BSG range 110-150mg/dL, CF 30, carb ratio deferred - BSG q6h while npo - Adjust regimen as needed #Hypercholesterolemia- Simvastatin - continue #MATEO- CPAP Dispo: Admit, med/sx VTE Prophylaxis: SCDs This document was dictated utilizing Access [employer]. Please excuse any grammatical errors that may be secondary to use of this software. Admission and Anticipated Discharge Date Admission Date: 01/01/2025 History of Present Illness Chief Complaint: Fever Primary Care Provider: Driss Billingsley DO 54-year-old male PMHx DM, hypercholesterolemia, MATEO, BPH, and prior renal calculi who presents for onset of fever. Pt was evaluated in ED 12/30/2024 for similar symptoms and sent home on oral antibiotics. Returning today for persistent fevers, highest 103.9 degrees Fahrenheit. Reports that these have been ongoing and worsening since his stent placement. 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 Pt does follow with urology. He had a laser lithotripsy to R kidney with R ureteral stent on 12/13/2024. Subsequently on 12/27/2024 the stent was removed. Pt has been taking cefdinir as prescribed. He states he occasionally gets back cramping, but no significant pain. No rigors. Overall denying chest pain, SOB, palpitations, abdominal pain, N/B/D/C, numbness/tingling, URI symptoms, present LUTS, weakness, or syncope. ED evaluation reveals CBC without leukocytosis, H/H 11.7/35.1; CMP K 3.3, glucose 155; Mag 1.4; lactate 1.6; UA blood, LE, WBCs; BioFire negative; CTAP completed 12/30/2024 revealed R hydronephrosis with 3 mm calculus/fragment in proximal R ureter (previously 6mm), no pyelonephritis, b ilateral renal cysts, and an enlarged prostate.; Pt was provided with 1L NSS and Acetaminophen 1g IV in ED. Please see Dr. Hudson's attestation for adjustments/additions to treatment plan. Allergies Allergy/AdvReac Type Severity Reaction Status Date / Time No Known Allergies Allergy Verified 12/31/24 23:43 Home Medications Medication Instructions Recorded Confirmed Type blood sugar diagnostic (OneTouch #100 ea 01/14/23 11/26/24 Rx Ultra Test strips) metformin 1,000 mg tablet 1,000 mg PO BID #180 tabs 03/22/24 12/31/24 Rx simvastatin 20 mg tablet 20 mg PO HS #90 tabs 09/22/24 12/31/24 Rx sildenafil 50 mg tablet 50 mg PO UD PRN Sexual Activity 11/24/24 12/31/24 History tirzepatide 15 mg/0.5 mL 15 mg subcut WK 11/24/24 12/31/24 History subcutaneous pen injector (Ulyssesunmagdiro) acetaminophen 500 mg tablet 500 mg PO UD PRN aches and pains 11/26/24 12/31/24 History (Tylenol Extra Strength) ibuprofen 600 mg tablet 600 mg PO Q6 PRN Pain 12/01/24 12/31/24 History tamsulosin 0.4 mg capsule 0.4 mg PO QAM #90 caps 12/03/24 12/31/24 Rx doxycycline hyclate 100 mg capsule 100 mg PO BID 7 days #14 caps 12/29/24 12/31/24 Rx cefdinir 300 mg capsule 300 mg PO BID 7 days #14 caps 12/30/24 12/31/24 Rx clotrimazole-betamethasone 1 1 applic topical HS 12/31/24 12/31/24 History %-0.05 % topical cream Past Med/Surg History Problem List Fever (Acute) Hypomagnesemia Hypokalemia Hydronephrosis (Acute) Fever (Acute) Encounter for pre-operative examination Renal cyst (Chronic) Hydronephrosis concurrent with and due to calculi of kidney and ureter (Acute) Nocturnal hypoxemia Severe obstructive sleep apnea Tendinitis of left rotator cuff Ventral hernia Right hand paresthesia Tubular adenoma Medial epicondylitis of elbow Tendinitis of right rotator cuff Erectile dysfunction (Chronic) Liver enzyme elevation Obesity Tinea pedis Onychomycosis Hypercholesteremia (Chronic) Metabolic acidosis Diabetes mellitus (Chronic) Medical History Ventral hernia "Mild" No surgery History of colon polyps Renal cyst Per records, patient unaware Kidney stones Fatty liver Type 2 diabetes mellitus History of COVID-19 ~2020 Sleep apnea CPAP Hypercholesteremia "Borderline" Carpal tunnel syndrome of right wrist Hx injection, no surgery Surgical History S/P cystoscopy with ureteral stent placement 12/01/24, right History of colonoscopy History of tooth extraction History of wisdom tooth extraction History of appendectomy ~2014 Pt states during appendectomy, "they hit a blood vessel and I bled out and had to get blood, plasma, was in an induced coma for 3 days" Family History Grandfather (Maternal) Diabetes Grandfather (Paternal) Diabetes Grandmother (Maternal) Diabetes Grandmother (Paternal) Diabetes Other No family history of adverse response to anesthesia Denies family history of Ovarian cancer Prostate cancer Myocardial infarction Breast cancer Lung cancer Colorectal cancer Social History Smoking Status: Never smoker Second Hand Exposure: No; Do You Dip or Chew Tobacco: No; Hx Alcohol Use: No Hx Substance Use: No Preferred Language: Pakistani Communication Ability: Effective Hearing Ability: Normal Brand Leader Required: No Beliefs That Will Affect Care: None marital status: Current Living Situation: Spouse and Family Current Living Situation Comment: Lives with and daughter current occupational status: employed Feels Safe at Home: Yes Childhood Exposure to Second-Hand Smoke: No caffeine: Yes Dental Care, Regularly: Yes Physical Activity Frequency: Does not Exercise Seatbelt Use: always Sunscreen Use: Yes Assistive Devices: Contacts, CPAP and Glasses Review of Systems Review of Systems: All systems reviewed & are unremarkable except as noted in Subjective Physical Exam Physical Exam: General: No acute distress Skin: Warm and dry Head: Normocephalic, atraumatic Eyes: PERRL, conjunctivae clear, sclera non-icteric ENT: External ear and ear canal without swelling; nose atraumatic; good dentition, tongue normal appearance, pharynx normal Neck: Supple, no LAD Cardio: RRR, no M/G/R, S1 and S2 normal Resp: No respiratory distress, Lungs CTA in all lobes bilaterally, no wheezes, rales, or rhonchi Abdomen: Soft, symmetric, nontender; No masses or hepatosplenomegaly; Bowel sounds normoactive MSK: No deformities; pulses palpable and equal; no edema. Neuro: Awake, alert; Sensation intact bilaterally; CN grossly intact Psych: Appropriate mood and affect; good judgement and insight. present in room at time of visit. Results & Data Results & Data Vital Signs (Past 12 Hours) Vital Signs Temp Pulse Resp BP Pulse Ox O2 Del Method 01/01/25 01:15 80 24 128/75 97 Room Air 01/01/25 01:01 71 24 133/72 94 Room Air 01/01/25 00:54 77 01/01/25 00:45 79 24 114/65 94 Room Air 01/01/25 00:30 82 22 126/71 93 Room Air 01/01/25 00:15 82 24 121/73 93 Room Air 12/31/24 23:57 37.4 C 12/31/24 23:45 93 H 24 137/73 97 Room Air 12/31/24 23:30 95 H 24 120/85 97 Room Air 12/31/24 23:15 94 H 24 131/74 94 Room Air 12/31/24 22:23 37.4 C 101 H 18 140/71 96 Room Air Laboratory Results 12/31/24 22:40 Aerobic Blood Culture - Pending Blood Anaerobic Blood Culture - Pending 12/31/24 22:49 Aerobic Blood Culture - Pending Blood Anaerobic Blood Culture - Pending 12/31/24 12/31/24 23:59 22:40 WBC 7.33 RBC 3.96 L Hgb 11.7 L Hct 35.1 L MCV 88.6 MCH 29.5 MCHC 33.3 RDW Std Deviation 40.8 RDW Coeff of [place] 12.4 Plt Count 281 MPV 9.8 Immature Gran % (Auto) 0.3 Neut % (Auto) 73.9 Lymph % (Auto) 10.9 [place] % (Auto) 12.3 Eos % (Auto) 1.6 Baso % (Auto) 1.0 Neut # (Auto) 5.42 Lymph # (Auto) 0.80 L [place] # (Auto) 0.90 H Eos # (Auto) 0.12 Baso # (Auto) 0.07 Immature Gran # (Auto) 0.02 Sodium 139 Potassium 3.3 L Chloride 102 Carbon Dioxide 28 Anion Gap 9 BUN 14 Creatinine 0.97 Est Cr Clr Drug Dosing 100.8 eGFR 92.19 BUN/Creatinine Ratio 14.4 Glucose 155 H Lactate 1.6 Calcium 8.9 Magnesium 1.4 L Total Bilirubin 0.7 AST 14 ALT 19 Alkaline Phosphatase 61 Total Protein 7.1 Albumin 3.8 Globulin 3.3 Albumin/Globulin Ratio 1.2 Lipase 31 Urine Color Yellow Urine Appearance Clear Urine pH 5.0 Ur Specific [place] 1.012 Urine Protein Trace H Urine Glucose (UA) Negative Urine Ketones Negative Urine Blood 3+ H Urine Nitrite Negative Urine Bilirubin Negative Urine Urobilinogen Negative Ur Leukocyte Esterase Trace H Urine WBC (Auto) 6-10 H Urine RBC (Auto) 3-5 H U Hyaline Cast (Auto) 0-2 U Epithel Cells (Auto) 0-2 Urine Bacteria (Auto) None Seen Urine Comment Adenovirus (PCR) Not Detected B. pertussis DNA (PCR) Not Detected B.parapertussis DNA PCR Not Detected C. pneumoniae DNA (PCR) Not Detected Coronavirus OC43 (PCR) Not Detected Coronavirus HKU1 (PCR) Not Detected Coronavirus 229E (PCR) Not Detected SARS-CoV-2 (PCR) Not Detected Coronavirus NL63 (PCR) Not Detected Human Metapneumovir PCR Not Detected Influenza Type A (PCR) Not Detected Influenza Type B (PCR) Not Detected M. pneumoniae (PCR) Not Detected Parainfluenza 1 (PCR) Not Detected Parainfluenza 2 (PCR) Not Detected Parainfluenza 3 (PCR) Not Detected Parainfluenza 4 (PCR) Not Detected RSV (PCR) Not Detected Entero/Rhino (PCR) Not Detected Medications Administered 1L NSS Acetaminophen 1g IV Code Status & VTE Plan Code Status Full Supervising Physician Co-Signing Physician Notes Patient seen and examined, chart reviewed, case discussed with NEVIN Armenta and I agree with the assessment and plan as above. In brief, patient is a 54yo male initially found to have a 6mm calculus in the proximal right ureter with right sided hydronephrosis on CT scan from 11/25. He had a cystoscopy performed on 12/01/24 with unsuccessful stone removal s/p stent placement. Patient returned to the OR on 8/18 for cystoscopy with urethral dilation. Stone noted to be severely impacted - stone pulverized via laser and fragments extracted. Stent placed. Patient was seen by Urology on 12/28/24 with removal of the stent - well tolerated. Seen in the ER on 12/30 with complaint of fever - CT at that time with unchanged mild right hydronephrosis with 3mm calculus int he proximal right ureter. Given Cefepime. Patient discharged with Cefdinir 300mg po BID. Returns today with ongoing fever On exam he is afebrile, HD stable, non-toxic in appearance +S1/S2, regular, no m/r/g Lungs CTA Abd soft, NT/ND Labs and images reviewed Assessment/plan - fever following removal of stent. No additional complaints -Follow cultures -Ceftriaxone for now -Pain control -Urology consultation -Remainder as above PG Care Time/CCT Total # of Minutes Spent Total Time Spent with Patient: Total time spent is greater than 50% in coordination of care (as documented) at patient's floor/unit and/or counseling patient: Coding Level of Care Code 60248 INT INP/OBS CARE 3/75MIN Diagnoses Fever R50.9 Hydronephrosis concurrent with and due to calculi of kidney and ureter N13.2 Hypokalemia E87.6 Hypomagnesemia E83.42
[2025-01-01] MEDS ORDERED: MoRPHine SULFATE 2 MG/ML CARP IV PRN ×2 (02:36)
[2025-01-01] MEDS ORDERED: ACETAMINOPHEN 1,000 MG/100 ML VIAL IV PRN (02:36)
[2025-01-01] MEDS: MAGNESIUM SULFATE / D5W 1 GM/100 ML BAG IV SCH (03:20)
[2025-01-01] MEDS: POTASSIUM CHLORIDE / WTR 10 MEQ/100 ML PLCT IV SCH (03:20)
[2025-01-01] MEDS: cefTRIAXone SODIUM 2,000 MG/50 ML BAG IV STA (03:20)
[2025-01-01] MEDS: PLASMA-LYTE A 1,000 ML IV SCH (03:21)
[2025-01-01] MEDS ORDERED: MELATONIN 3 MG TAB PO PRN (03:38)
[2025-01-01] MEDS ORDERED: ONDANSETRON INJ 2 MG/ML 2 ML VIAL IV PRN (03:38)
[2025-01-01] MEDS ORDERED: GLUCAGON FOR INJ 1 MG VIAL SQ PRN (03:38)
[2025-01-01] MEDS ORDERED: CARBOHYDRATES FOR HYPOGLYCEMIA PO PRN (03:38)
[2025-01-01] MEDS ORDERED: GLUCOSE 40% GEL 15 GM TUBE PO PRN (03:38)
[2025-01-01] MEDS ORDERED: DEXTROSE 50% 50 ML SYRINGE IV PRN (03:38)
[2025-01-01] MEDS ORDERED: GLUCOSE 10 TAB/TUBE PO PRN (03:38)
[2025-01-01 05:11] LABS: Hematocrit (blood only) 31.7 % (42.0-52.0); Hemoglobin 10.8 g/dl (14.0-18.0); Mean Corpuscular Hemoglobin 30.4 pg (25.0-34.0); Mean Corpuscular Volume 89.3 fL (80.0-100.0); Platelet Count 252 K/uL (130-400); RDW Standard Deviation 40.9 fL (36.4-46.3); Red Blood Count 3.55 M/uL (4.70-6.10); White Blood Count 7.09 K/ul (4.8-10.8)
[2025-01-01 05:28] LABS: Anion Gap 6.0 (3-11); Blood Urea Nitrogen 12.0 mg/dl (6-23); Calcium 8.4 mg/dl (8.6-10.3); Carbon Dioxide 28.0 mmol/L (21-32); Chloride 106.0 mmol/L (98-107); Creatinine Clr Calc Pharmacy 104.0 ml/min; Glucose 104.0 mg/dl (70-99(Fasting)); Iron 27.0 mcg/dl (35-175); Magnesium 1.7 mg/dl (1.7-2.4); Potassium 3.6 mmol/L (3.5-5.1); Sodium 140.0 mmol/L (136-145); Total Iron Binding Cap Calc 258.0 mcg/dl (250-450); Transferrin 184.0 mg/dl (200-360); Transferrin (FE) Percent Satur 10.0 % (20-50)
[2025-01-01] MEDS: INSULIN ASPART PER UNIT CHARGE SC SCH (07:47)
--- NOTE | 2025-01-01 09:46 | Urology Consultation ---
Date of Consultation January 01, 2025 Assessment & Plan (1) Fever: 54M seen for fever after right ureteroscopy laser lithotripsy and subsequent stent removal 12/27. cultures pending, various abx treatments given. - agree with admission fro close monitoring seemingly has failed outpatient abx therapy for possible uti - ct reviewed no actionable findings no surgery indicated at present to replace ureteral stent - recommend flomax to aid passage small postprocedural fragment - difficult to say what if any abx would be helpful at this time since has received multiple regimens without enough time to guage efficacy probably most reasonable to continue ceftriaxone while awaiting culture - at least one culture appears to be growing some bacteria and this may be helpful to select antibiotics - please call with questions (2) Hydronephrosis: History of Present Illness Reason for Consultation: fevers after stent removal Attending Physician: Rosemarie Harrison DO History of Present Illness pleasant 54M seen for fevers and chills after right ureteroscopy and subsequent stent removal ~ 1 wk prior. Notes has had intermittent fevers and chills since stent removal though has not had flank pain or discrete urinary symptoms, fever at home to 103 after starting abx per outpatient urology for which proceeded to ER and discharged to home with different antibiotic, now returns to ED for fever to 102 at home. Despite this has largely felt comfortable. denies nausea vomiting. no difficulty voiding. No cough or respiratory sx. Allergies Allergy/AdvReac Type Severity Reaction Status Date / Time No Known Allergies Allergy Verified 12/31/24 23:43 Home Medications Medication Instructions Recorded Confirmed Type blood sugar diagnostic (OneTouch #100 ea 01/14/23 11/26/24 Rx Ultra Test strips) metformin 1,000 mg tablet 1,000 mg PO BID #180 tabs 03/22/24 12/31/24 Rx simvastatin 20 mg tablet 20 mg PO HS #90 tabs 09/22/24 12/31/24 Rx sildenafil 50 mg tablet 50 mg PO UD PRN Sexual Activity 11/24/24 12/31/24 History tirzepatide 15 mg/0.5 mL 15 mg subcut WK 11/24/24 12/31/24 History subcutaneous pen injector (Mounjaro) acetaminophen 500 mg tablet 500 mg PO UD PRN aches and pains 11/26/24 12/31/24 History (Tylenol Extra Strength) ibuprofen 600 mg tablet 600 mg PO Q6 PRN Pain 12/01/24 12/31/24 History tamsulosin 0.4 mg capsule 0.4 mg PO QAM #90 caps 12/03/24 12/31/24 Rx doxycycline hyclate 100 mg capsule 100 mg PO BID 7 days #14 caps 12/29/24 12/31/24 Rx cefdinir 300 mg capsule 300 mg PO BID 7 days #14 caps 12/30/24 12/31/24 Rx clotrimazole-betamethasone 1 1 applic topical HS 12/31/24 12/31/24 History %-0.05 % topical cream Patient History Medical History Ventral hernia "Mild" No surgery History of colon polyps Renal cyst Per records, patient unaware Kidney stones Fatty liver Type 2 diabetes mellitus History of COVID-19 ~2020 Sleep apnea CPAP Hypercholesteremia "Borderline" Carpal tunnel syndrome of right wrist Hx injection, no surgery Surgical History S/P cystoscopy with ureteral stent placement 12/01/24, right History of colonoscopy History of tooth extraction History of wisdom tooth extraction History of appendectomy ~2014 Pt states during appendectomy, "they hit a blood vessel and I bled out and had to get blood, plasma, was in an induced coma for 3 days" Family History Grandfather (Maternal) Diabetes Grandfather (Paternal) Diabetes Grandmother (Maternal) Diabetes Grandmother (Paternal) Diabetes Other No family history of adverse response to anesthesia Denies family history of Ovarian cancer Prostate cancer Myocardial infarction Breast cancer Lung cancer Colorectal cancer Social History Smoking Status: Never smoker Second Hand Exposure: No; Do You Dip or Chew Tobacco: No; Hx Alcohol Use: No Hx Substance Use: No Preferred Language: Bahraini Communication Ability: Effective Hearing Ability: Normal Shaker Tender Required: No Beliefs That Will Affect Care: None marital status: Current Living Situation: Spouse Current Living Situation Comment: Lives with and daughter current occupational status: employed Other Information That Helps Us Care for You: No Feels Safe at Home: Yes Safety Concerns: Feels Safe At This Time Childhood Exposure to Second-Hand Smoke: No caffeine: Yes Dental Care, Regularly: Yes Physical Activity Frequency: Does not Exercise Seatbelt Use: always Sunscreen Use: Yes Assistive Devices: Glasses Physical Exam Physical Exam: Gen: NAD Psych: Alert and Oriented Abd: Nontender nondistended : neg b/l flank tenderness to percussion Results & Data Vital Signs (Past 12 Hours) Vital Signs Temp Pulse Pulse Pulse Resp BP BP 01/01/25 08:51 36.5 C 70 15 132/79 01/01/25 07:11 36.8 C 70 20 124/79 01/01/25 03:41 63 17 134/75 01/01/25 03:00 75 17 132/76 01/01/25 01:15 80 24 128/75 01/01/25 01:01 71 24 133/72 01/01/25 00:54 77 01/01/25 00:45 79 24 114/65 01/01/25 00:30 82 22 126/71 01/01/25 00:15 82 24 121/73 12/31/24 23:57 37.4 C 12/31/24 23:45 93 H 24 137/73 12/31/24 23:30 95 H 24 120/85 12/31/24 23:15 94 H 24 131/74 12/31/24 22:23 37.4 C 101 H 18 140/71 Pulse Ox O2 Del Method 01/01/25 08:51 99 Room Air 01/01/25 07:11 98 Room Air 01/01/25 03:41 98 Room Air 01/01/25 03:00 98 Room Air 01/01/25 01:15 97 Room Air 01/01/25 01:01 94 Room Air 01/01/25 00:54 01/01/25 00:45 94 Room Air 01/01/25 00:30 93 Room Air 01/01/25 00:15 93 Room Air 12/31/24 23:57 12/31/24 23:45 97 Room Air 12/31/24 23:30 97 Room Air 12/31/24 23:15 94 Room Air 12/31/24 22:23 96 Room Air Laboratory Results labs reviewed no leukocystosis or VU, cultures pending one prior culture with pinpoint growth notable patient has seemingly been on abx while all cultures drawn Diagnostic Findings CTAP reviewed. Noted to has residual small francois in segment right ureter where prior stone seen, right hydro noted but entire ureter dilated c/w recent stent difficult to interpret significance of small residual francois, unlikely to be significant ureteral stricture in immediate period after stent removal PG Care Time/CCT Total # of Minutes Spent Total Time Spent with Patient: Total time spent is greater than 50% in coordination of care (as documented) at patient's floor/unit and/or counseling patient: Coding Level of Care Code 07427 IN/OBS CONSULT LVL 3,45M Medical Decision Making Moderate Complexity Diagnoses Fever R50.9 Hydronephrosis N13.30
[2025-01-01] MEDS: TAMSULOSIN HCL 0.4 MG CAP PO SCH (09:47)
[2025-01-01] MEDS: ACETAMINOPHEN 325 MG TAB PO PRN (10:09)
[2025-01-01] MEDS: CEFEPIME 2000MG 2,000 MG/20 ML SYR IV SCH (11:13)
[2025-01-01] MEDS: CYANOCOBALAMIN 1000 MCG/ML VIAL IM SCH (11:48)
--- NOTE | 2025-01-01 15:37 | Hospitalist Progress Note ---
Date of Service January 01, 2025 Assessment & Plan (1) Fever: (2) Hydronephrosis concurrent with and due to calculi of kidney and ureter: (3) Hypokalemia: (4) Hypomagnesemia: Plan 54-year-old male PMHx DM, renal calculi s/p stent, MATEO, BPH, and prior renal calculi who presents for onset of fever. ED course without evidence of sepsis, no leukocytosis, and UA ? starting infection. He does have slight electrolyte abnormalities (K and Mg). CTAP from prior evaluation revealed hydronephrosis with calculi on R side. Pt to be admitted for concerns of fever in setting of known stone. Hemodynamically stable at time of admission. his repeat CT abdomen found 3mm calculus in the proximal right ureter. blood culture negative recheck urine analysis on 01/01/2025, started on ceftriaxone. overall plan continue to monitor for fever f/u on urine culture and blood culture check PSA tomorrow if he anemia, will benefit from f/u with GI for EGD and repeat colonoscopy #Fevers/R hydronephrosis with calculus Follows with urology; S/p laser lithotripsy to R kidney with R ureteral stent on 12/13/2024 and removal on 12/27/2024. Evaluated in ED 12/30/2024 and started on cefdinir. Ongoing fevers despite oral antibiotics. Pt is overall stable at time of admission with no evidence of sepsis and is hemodynamically stable. - CBC without leukocytosis, H/H 11.7/35.1; CMP WNL Cr and BUN; lactate 1.6 - CBC, BMP am - UA LE/WBC/blood - pending prior cx - CTAP (12/30/2024) R hydronephrosis with 3mm calculus/fragment of proximal R ureter, no pyelonephritis -increased flomax dosage. - VS q4h -- notify provider of fever/tachycardia - IVF plasma-lyte @ 125 mL/hr - Zofran prn N/V - Acetaminophen prn fever/pain, morphine prn severe pain - Ceftriaxone IV x 1 given at admission - additional abx pending clinical course - communicated with urology; they are deferring acute intervention no rash noted; foot exam negative for cellulitis. #Hypokalemia/Hypomagnesemia Asx at present. - K 3.3, Mg 1.4 - BMP, Mg am - Mag sulfate 4g IV first - KCl 20 mEq IV - EKG pending #Anemia last colonoscopy was 5 years ago Slightly decreased H/H from prior, no known bleeding per patient. - H/H 11.7/35.1, plt WNL - Trend CBC - Iron panel, vitamin B12, and folate pending - CTAP 12/30/2024 unremarkable for etiology #T2DM H/o T2DM. At home regimen includes metformin, Mounjaro. - Glucose on arrival 155; Most recent A1c 08/2024 @ 6.5% - SSI with target BSG range 110-150mg/dL, CF 30, carb ratio deferred - BSG q6h while npo - Adjust regimen as needed #Hypercholesterolemia- Simvastatin - continue #MATEO- CPAP Dispo: Admit, med/sx VTE Prophylaxis: SCDs This document was dictated utilizing [employer]. Please excuse any grammatical errors that may be secondary to use of this software. Admission and Anticipated Discharge Date Admission Date: January 01, 2025 Subjective he presented here for fever episode seen by urology and defer intervention noted he has stent placement no dysuria, no flank pain, no hematuria blood culture negative so far repeat urine culture empirically ceftriaxone for 2-3 dose no sputum production, abdominal pain plan for repeat PSA tomorrow updated Review of Systems Review of Systems: Constitutional: No Weight Change, No Fever, No Chills, No Night Sweats, No Fatigue, No Malaise Cardiovascular: No Chest Pain, No SOB, No PND, No Dyspnea on Exertion, No Orthopnea, No Edema, No Palpitations Respiratory: No Cough, No Sputum, No Wheezing, No Smoke Exposure, No Dyspnea Gastrointestinal: No Nausea, No Vomiting, No Diarrhea, No Constipation, No Pain, No Heartburn, No Anorexia, No Dysphagia, No Hematochezia, No Melena Genitourinary:, No Dysuria,No Hematuria, No Urinary Incontinence, No Urgency, No Flank Pain, positive Urinary Flow Changes, No Hesitancy Musculoskeletal: No Arthralgias, No Myalgias, No Joint Swelling, No Joint Stiffness, No Back Pain, No Neck Pain, No Injury History Neuro: No Weakness, No Numbness, No Paresthesias, No Loss of Consciousness, No Syncope, No Dizziness, No Headache, No Coordination Changes, No Recent Falls Psych: No Anxiety/Panic, No Depression, No Insomnia, No Personality Changes, No Delusions, No Rumination, No SI/HI/AH/VH, No Social Issues, No Memory Changes, No Violence/Abuse Hx., No Eating Concerns Heme/Lymph: No Bruising, No Bleeding, No Transfusions History, No Lymphadenopathy Endocrine: No Polyuria, No Polydipsia, No Temperature Intolerance Results & Data Results & Data Vital Signs (Past 12 Hours) Vital Signs Temp Pulse Pulse Resp BP Pulse Ox O2 Del Method 01/01/25 08:51 36.5 C 70 15 132/79 99 Room Air 01/01/25 07:11 36.8 C 70 20 124/79 98 Room Air 01/01/25 03:41 63 17 134/75 98 Room Air Laboratory Results Laboratory Results - last 72 hr 12/31/24 12/31/24 01/01/25 22:40 23:59 04:40 WBC 7.33 7.09 RBC 3.96 L 3.55 L Hgb 11.7 L 10.8 L Hct 35.1 L 31.7 L MCV 88.6 89.3 MCH 29.5 30.4 MCHC 33.3 34.1 RDW Std Deviation 40.8 40.9 RDW Coeff of Braeden 12.4 12.5 Plt Count 281 252 MPV 9.8 9.7 Immature Gran % (Auto) 0.3 Neut % (Auto) 73.9 Lymph % (Auto) 10.9 Simpson % (Auto) 12.3 Eos % (Auto) 1.6 Baso % (Auto) 1.0 Neut # (Auto) 5.42 Lymph # (Auto) 0.80 L Simpson # (Auto) 0.90 H Eos # (Auto) 0.12 Baso # (Auto) 0.07 Immature Gran # (Auto) 0.02 Sodium 139 140 Potassium 3.3 L 3.6 Chloride 102 106 Carbon Dioxide 28 28 Anion Gap 9 6 BUN 14 12 Creatinine 0.97 0.94 Est Cr Clr Drug Dosing 100.8 104.0 eGFR 92.19 95.73 BUN/Creatinine Ratio 14.4 12.8 Glucose 155 H 104 H POC Glucose Lactate 1.6 Calcium 8.9 8.4 L Magnesium 1.4 L 1.7 Iron 27 L TIBC 258 Unsaturated IBC 199 Transferrin 184 L Transferrin % Sat 10 L Total Bilirubin 0.7 AST 14 ALT 19 Alkaline Phosphatase 61 Total Protein 7.1 Albumin 3.8 Globulin 3.3 Albumin/Globulin Ratio 1.2 Lipase 31 Vitamin B12 170 L Folate 7.76 Urine Color Yellow Urine Appearance Clear Urine pH 5.0 Ur Specific Vera 1.012 Urine Protein Trace H Urine Glucose (UA) Negative Urine Ketones Negative Urine Blood 3+ H Urine Nitrite Negative Urine Bilirubin Negative Urine Urobilinogen Negative Ur Leukocyte Esterase Trace H Urine WBC (Auto) 6-10 H Urine RBC (Auto) 3-5 H U Hyaline Cast (Auto) 0-2 U Epithel Cells (Auto) 0-2 Urine Bacteria (Auto) None Seen Urine Comment Adenovirus (PCR) Not Detected B. pertussis DNA (PCR) Not Detected B.parapertussis DNA PCR Not Detected C. pneumoniae DNA (PCR) Not Detected Coronavirus OC43 (PCR) Not Detected Coronavirus HKU1 (PCR) Not Detected Coronavirus 229E (PCR) Not Detected SARS-CoV-2 (PCR) Not Detected Coronavirus NL63 (PCR) Not Detected Human Metapneumovir PCR Not Detected Influenza Type A (PCR) Not Detected Influenza Type B (PCR) Not Detected M. pneumoniae (PCR) Not Detected Parainfluenza 1 (PCR) Not Detected Parainfluenza 2 (PCR) Not Detected Parainfluenza 3 (PCR) Not Detected Parainfluenza 4 (PCR) Not Detected RSV (PCR) Not Detected Entero/Rhino (PCR) Not Detected 01/01/25 01/01/25 01/01/25 07:08 09:26 11:47 WBC RBC Hgb Hct MCV MCH MCHC RDW Std Deviation RDW Coeff of Braeden Plt Count MPV Immature Gran % (Auto) Neut % (Auto) Lymph % (Auto) Simpson % (Auto) Eos % (Auto) Baso % (Auto) Neut # (Auto) Lymph # (Auto) Simpson # (Auto) Eos # (Auto) Baso # (Auto) Immature Gran # (Auto) Sodium Potassium Chloride Carbon Dioxide Anion Gap BUN Creatinine Est Cr Clr Drug Dosing eGFR BUN/Creatinine Ratio Glucose POC Glucose 100 H 105 H 186 H Lactate Calcium Magnesium Iron TIBC Unsaturated IBC Transferrin Transferrin % Sat Total Bilirubin AST ALT Alkaline Phosphatase Total Protein Albumin Globulin Albumin/Globulin Ratio Lipase Vitamin B12 Folate Urine Color Urine Appearance Urine pH Ur Specific Vera Urine Protein Urine Glucose (UA) Urine Ketones Urine Blood Urine Nitrite Urine Bilirubin Urine Urobilinogen Ur Leukocyte Esterase Urine WBC (Auto) Urine RBC (Auto) U Hyaline Cast (Auto) U Epithel Cells (Auto) Urine Bacteria (Auto) Urine Comment Adenovirus (PCR) B. pertussis DNA (PCR) B.parapertussis DNA PCR C. pneumoniae DNA (PCR) Coronavirus OC43 (PCR) Coronavirus HKU1 (PCR) Coronavirus 229E (PCR) SARS-CoV-2 (PCR) Coronavirus NL63 (PCR) Human Metapneumovir PCR Influenza Type A (PCR) Influenza Type B (PCR) M. pneumoniae (PCR) Parainfluenza 1 (PCR) Parainfluenza 2 (PCR) Parainfluenza 3 (PCR) Parainfluenza 4 (PCR) RSV (PCR) Entero/Rhino (PCR) PG Care Time/CCT Total # of Minutes Spent Total Time Spent with Patient: Total time spent is greater than 50% in coordination of care (as documented) at patient's floor/unit and/or counseling patient: Coding Level of Care Code 83698 SUB INP/OBS CARE 2/35MIN Diagnoses Fever R50.9 Hydronephrosis concurrent with and due to calculi of kidney and ureter N13.2 Hypokalemia E87.6 Hypomagnesemia E83.42 Time Spent (min) 35
[2025-01-01] MEDS: ADVANCED PROBIOTIC 625 MG CAPSULE PO SCH (17:02)
[2025-01-01] MEDS: SIMVASTATIN 20 MG TAB PO SCH (20:13)
[2025-01-02] MEDS: cefTRIAXone SODIUM 2,000 MG/50 ML BAG IV SCH (03:52)
[2025-01-02 07:00] LABS: Prostate SpecificAg Diagnostic 18.551 ng/ml (0-4)
[2025-01-02 07:37] LABS: Hematocrit (blood only) 33.4 % (42.0-52.0); Hemoglobin 11.0 g/dl (14.0-18.0); Immature Granulocytes # (auto) 0.02 K/uL (0.01-0.20); Immature Granulocytes % (auto) 0.3 %; Mean Corpuscular Hemoglobin 29.4 pg (25.0-34.0); Mean Corpuscular Volume 89.3 fL (80.0-100.0); Platelet Count 307 K/uL (130-400); RDW Standard Deviation 41.3 fL (36.4-46.3); Red Blood Count 3.74 M/uL (4.70-6.10); White Blood Count 7.97 K/ul (4.8-10.8)
[2025-01-02 07:43] LABS: Alanine Aminotransferase 21.0 U/L (7-52); Albumin Globulin Ratio 1.1 (0.9-2); Alkaline Phosphatase 57.0 U/L (34-104); Anion Gap 6.0 (3-11); Bilirubin,Total 0.3 mg/dl (0.2-1.0); Blood Urea Nitrogen 7.0 mg/dl (6-23); Calcium 8.3 mg/dl (8.6-10.3); Carbon Dioxide 30.0 mmol/L (21-32); Chloride 106.0 mmol/L (98-107); Creatinine Clr Calc Pharmacy 130.4 ml/min; Globulin 2.9 gm/dl (2.5-4.0); Glucose 115.0 mg/dl (70-99(Fasting)); Potassium 3.7 mmol/L (3.5-5.1); Sodium 142.0 mmol/L (136-145); Total Protein 6.1 gm/dl (6.0-8.3)
--- NOTE | 2025-01-02 10:10 | CT Scan Report ---
CT OF THE ABDOMEN AND PELVIS WITHOUT CONTRAST CLINICAL HISTORY: eval for stability of the stent COMPARISON STUDY: CT of the abdomen and pelvis December 30, 2024. TECHNIQUE: Axial images of the abdomen and pelvis were obtained without IV contrast. Images were revi ewed in the axial, sagittal, and coronal planes. Automated exposure control was utilized for the marcel dy. A dose lowering technique was utilized adhering to the principles of ALARA. FINDINGS: Visualized portions of the lung bases are unremarkable. There is no pneumatosis, free air o r portal venous gas. No ureteral stent is in place. Mild right hydronephrosis has slightly decreased since CT of December 30, 2024. A 3 mm calculus within the proximal right ureter is unchanged since pr ior CT. This is eccentrically located. No additional urinary calculi are identified. There is no left hydronephrosis. Water attenuation bilateral renal lesions were shown to represent cysts on prior con trast enhanced CT. Right perinephric and periureteral stranding persists. There is also persistent ur othelial thickening of the right ureter and the bladder. Prostate is enlarged, measuring 5 cm in goel sverse diameter. There is no evidence for a bowel obstruction. Evaluation the solid abdominal viscera is suboptimal on unenhanced exam. Liver, spleen, adrenal glands and pancreas are unremarkable. No ly mphadenopathy. There are no fluid collections. IMPRESSION: 1. Slight decrease in mild right hydronephrosis since CT of December 30, 2024. 2. No change in an 3 mm calculus within the proximal right ureter. This is eccentrically located and could be within the lumen or adherent to the wall. No additional urinary calculi. 3. Persistent right perinephric and periureteral stranding. Persistent urothelial thickening, as desc ribed above, which may be related to recent procedure although could be correlated with urinalysis. ACT 112: Negative or not required by law. Electronically signed by: Denton Matias M.D. 01/02/2025 10:08 AM
--- NOTE | 2025-01-02 10:44 | Urology Progress Note ---
Date of Service January 02, 2025 Assessment & Plan (1) Complicated UTI (urinary tract infection): Plan: Currently afebrile 54M who seems to have post-procedural UTI and failed outpatient oral antibiotics. now improving with ceftriaxone. - psa noted unclear how to interpret after manipulation recently - continue ceftriaxone - await sensitivities from 12/30 urine culture - ct this am reviewed no acute intervention indicated - recommend continue inpatient treatment at least another day and ideally get finalized culture sensitivity as failed prior PO regimen Admission and Anticipated Discharge Date Admission Date: January 01, 2025 Subjective doing ok overnight still with luts some burning frequency discomfort, prior urine culture now growing enterococcus, feeling somewhat better no measured fevers though still borderline febrile on ceftriaxone feels chills have lessened Physical Exam Physical Exam: Gen: NAD Psych: Alert and Oriented Abd: Nontender nondistended : neg bilateral cva tenderness Results & Data Vital Signs (Past 12 Hours) Vital Signs Temp Pulse Resp BP Pulse Ox O2 Del Method 01/02/25 07:09 37.1 C 80 16 143/83 H 94 Room Air 01/01/25 23:02 37.1 C 86 18 133/77 96 Room Air Laboratory Results urine cultures and labs reviewed as above PG Care Time/CCT Total # of Minutes Spent Total Time Spent with Patient: Total time spent is greater than 50% in coordination of care (as documented) at patient's floor/unit and/or counseling patient: Coding Level of Care Code 48247 SUB INP/OBS CARE 2/35MIN Diagnoses Complicated UTI (urinary tract infection) N39.0
--- NOTE | 2025-01-02 11:23 | Hospitalist Progress Note ---
Date of Service January 02, 2025 Assessment & Plan (1) Fever: (2) Hydronephrosis concurrent with and due to calculi of kidney and ureter: (3) Hypokalemia: (4) Hypomagnesemia: Plan 54-year-old male PMHx DM, renal calculi s/p stent, MATEO, BPH, and prior renal calculi who presents for onset of fever. ED course without evidence of sepsis, no leukocytosis, and UA ? starting infection. He does have slight electrolyte abnormalities (K and Mg). CTAP from prior evaluation revealed hydronephrosis with calculi on R side. Pt to be admitted for concerns of fever in setting of known stone. Hemodynamically stable at time of admission. his repeat CT abdomen found 3mm calculus in the proximal right ureter. blood culture negative recheck urine analysis on 01/01/2025, started on ceftriaxone. overall plan continue to monitor for fever f/u on urine culture and blood culture check PSA tomorrow if he anemia, will benefit from f/u with GI for EGD and repeat colonoscopy #Fevers/R hydronephrosis with calculus in the past, he grow enteroccous c/w ceftriaxone. Follows with urology; S/p laser lithotripsy to R kidney with R ureteral stent on 12/13/2024 and removal on 12/27/2024. Evaluated in ED 12/30/2024 and started on cefdinir. Ongoing fevers despite oral antibiotics. Pt is overall stable at time of admission with no evidence of sepsis and is hemodynamically stable. - CBC without leukocytosis, H/H 11.7/35.1; CMP WNL Cr and BUN; lactate 1.6 - CBC, BMP am - UA LE/WBC/blood - pending prior cx - CTAP (12/30/2024) R hydronephrosis with 3mm calculus/fragment of proximal R ureter, no pyelonephritis -increased flomax dosage. - VS q4h -- notify provider of fever/tachycardia - IVF plasma-lyte @ 125 mL/hr - Zofran prn N/V - Acetaminophen prn fever/pain, morphine prn severe pain - Ceftriaxone IV x 1 given at admission - additional abx pending clinical course - communicated with urology; they are deferring acute intervention no rash noted; foot exam negative for cellulitis. elevaed PSA, notified urology, he will has close follow up b12 deficiency #Hypokalemia/Hypomagnesemia Asx at present. - K 3.3, Mg 1.4 - BMP, Mg am - Mag sulfate 4g IV first - KCl 20 mEq IV - EKG pending #Anemia last colonoscopy was 5 years ago Slightly decreased H/H from prior, no known bleeding per patient. - H/H 11.7/35.1, plt WNL - Trend CBC - Iron panel, vitamin B12, and folate pending - CTAP 12/30/2024 unremarkable for etiology #T2DM H/o T2DM. At home regimen includes metformin, Mounjaro. - Glucose on arrival 155; Most recent A1c 08/2024 @ 6.5% - SSI with target BSG range 110-150mg/dL, CF 30, carb ratio deferred - BSG q6h while npo - Adjust regimen as needed #Hypercholesterolemia- Simvastatin - continue #MATEO- CPAP Dispo: Admit, med/sx VTE Prophylaxis: SCDs This document was dictated utilizing [employer]. Please excuse any grammatical errors that may be secondary to use of this software. Admission and Anticipated Discharge Date Admission Date: January 01, 2025 Subjective doing ok overnight still with luts some burning frequency discomfort, prior urine culture now growing enterococcus, feeling somewhat better no measured fevers though still borderline febrile on ceftriaxone feels chills have lessened he still has low grade episode his PSA is elevated and need close f/u *18.551, and Free PSA of 3.28) isolated episode of diarrhea overnight still required IV antibiotics communicated with urology; Dr. Orlando urology agreed about the need for IV antibiotics Physical Exam Physical Exam: VITALS: Reviewed. WEIGHT/BMI reviewed. GEN: Healthy appearing, well-developed, NAD. -Head: NC/AT; -Eyes: PERRL, EOMI. No discharge or redn ess; NECK: Supple, with no masses. CV: RRR, no m/r/g. LUNGS: CTAB, no w/r/c. ABD: Soft, NT/ND, NBS, no masses or organomegaly. : no CVA tenderness SKIN: multiple tattoo in the body MSK: No deformities, Normal gait. EXT: No clubbing, cyanosis, or edema. NEURO: AAOx3 Results & Data Results & Data Vital Signs (Past 12 Hours) Vital Signs Temp Pulse Resp BP Pulse Ox O2 Del Method 01/02/25 07:09 37.1 C 80 16 143/83 H 94 Room Air Laboratory Results Laboratory Results - last 72 hr 12/31/24 12/31/24 01/01/25 22:40 23:59 04:40 WBC 7.33 7.09 RBC 3.96 L 3.55 L Hgb 11.7 L 10.8 L Hct 35.1 L 31.7 L MCV 88.6 89.3 MCH 29.5 30.4 MCHC 33.3 34.1 RDW Std Deviation 40.8 40.9 RDW Coeff of Braeden 12.4 12.5 Plt Count 281 252 MPV 9.8 9.7 Immature Gran % (Auto) 0.3 Neut % (Auto) 73.9 Lymph % (Auto) 10.9 Henderson % (Auto) 12.3 Eos % (Auto) 1.6 Baso % (Auto) 1.0 Neut # (Auto) 5.42 Lymph # (Auto) 0.80 L Henderson # (Auto) 0.90 H Eos # (Auto) 0.12 Baso # (Auto) 0.07 Immature Gran # (Auto) 0.02 Sodium 139 140 Potassium 3.3 L 3.6 Chloride 102 106 Carbon Dioxide 28 28 Anion Gap 9 6 BUN 14 12 Creatinine 0.97 0.94 Est Cr Clr Drug Dosing 100.8 104.0 eGFR 92.19 95.73 BUN/Creatinine Ratio 14.4 12.8 Glucose 155 H 104 H POC Glucose Lactate 1.6 Calcium 8.9 8.4 L Magnesium 1.4 L 1.7 Iron 27 L TIBC 258 Unsaturated IBC 199 Transferrin 184 L Transferrin % Sat 10 L Total Bilirubin 0.7 AST 14 ALT 19 Alkaline Phosphatase 61 Total Protein 7.1 Albumin 3.8 Globulin 3.3 Albumin/Globulin Ratio 1.2 Lipase 31 Prostate Specific Ag Free PSA % Free PSA Vitamin B12 170 L Folate 7.76 Urine Color Yellow Urine Appearance Clear Urine pH 5.0 Ur Specific Cody 1.012 Urine Protein Trace H Urine Glucose (UA) Negative Urine Ketones Negative Urine Blood 3+ H Urine Nitrite Negative Urine Bilirubin Negative Urine Urobilinogen Negative Ur Leukocyte Esterase Trace H Urine WBC (Auto) 6-10 H Urine RBC (Auto) 3-5 H U Hyaline Cast (Auto) 0-2 U Epithel Cells (Auto) 0-2 Urine Bacteria (Auto) None Seen Urine Comment Adenovirus (PCR) Not Detected B. pertussis DNA (PCR) Not Detected B.parapertussis DNA PCR Not Detected C. pneumoniae DNA (PCR) Not Detected Coronavirus OC43 (PCR) Not Detected Coronavirus HKU1 (PCR) Not Detected Coronavirus 229E (PCR) Not Detected SARS-CoV-2 (PCR) Not Detected Coronavirus NL63 (PCR) Not Detected Human Metapneumovir PCR Not Detected Influenza Type A (PCR) Not Detected Influenza Type B (PCR) Not Detected M. pneumoniae (PCR) Not Detected Parainfluenza 1 (PCR) Not Detected Parainfluenza 2 (PCR) Not Detected Parainfluenza 3 (PCR) Not Detected Parainfluenza 4 (PCR) Not Detected RSV (PCR) Not Detected Entero/Rhino (PCR) Not Detected 01/01/25 01/01/25 01/01/25 07:08 09:26 11:47 WBC RBC Hgb Hct MCV MCH MCHC RDW Std Deviation RDW Coeff of Braeden Plt Count MPV Immature Gran % (Auto) Neut % (Auto) Lymph % (Auto) Henderson % (Auto) Eos % (Auto) Baso % (Auto) Neut # (Auto) Lymph # (Auto) Henderson # (Auto) Eos # (Auto) Baso # (Auto) Immature Gran # (Auto) Sodium Potassium Chloride Carbon Dioxide Anion Gap BUN Creatinine Est Cr Clr Drug Dosing eGFR BUN/Creatinine Ratio Glucose POC Glucose 100 H 105 H 186 H Lactate Calcium Magnesium Iron TIBC Unsaturated IBC Transferrin Transferrin % Sat Total Bilirubin AST ALT Alkaline Phosphatase Total Protein Albumin Globulin Albumin/Globulin Ratio Lipase Prostate Specific Ag Free PSA % Free PSA Vitamin B12 Folate Urine Color Urine Appearance Urine pH Ur Specific Cody Urine Protein Urine Glucose (UA) Urine Ketones Urine Blood Urine Nitrite Urine Bilirubin Urine Urobilinogen Ur Leukocyte Esterase Urine WBC (Auto) Urine RBC (Auto) U Hyaline Cast (Auto) U Epithel Cells (Auto) Urine Bacteria (Auto) Urine Comment Adenovirus (PCR) B. pertussis DNA (PCR) B.parapertussis DNA PCR C. pneumoniae DNA (PCR) Coronavirus OC43 (PCR) Coronavirus HKU1 (PCR) Coronavirus 229E (PCR) SARS-CoV-2 (PCR) Coronavirus NL63 (PCR) Human Metapneumovir PCR Influenza Type A (PCR) Influenza Type B (PCR) M. pneumoniae (PCR) Parainfluenza 1 (PCR) Parainfluenza 2 (PCR) Parainfluenza 3 (PCR) Parainfluenza 4 (PCR) RSV (PCR) Entero/Rhino (PCR) 01/01/25 01/01/25 01/02/25 16:34 20:39 05:30 WBC 7.97 RBC 3.74 L Hgb 11.0 L Hct 33.4 L MCV 89.3 MCH 29.4 MCHC 32.9 RDW Std Deviation 41.3 RDW Coeff of Braeden 12.6 Plt Count 307 MPV 10.0 Immature Gran % (Auto) 0.3 Neut % (Auto) 69.7 Lymph % (Auto) 13.4 Henderson % (Auto) 12.0 Eos % (Auto) 4.0 Baso % (Auto) 0.6 Neut # (Auto) 5.55 Lymph # (Auto) 1.07 L Henderson # (Auto) 0.96 H Eos # (Auto) 0.32 Baso # (Auto) 0.05 Immature Gran # (Auto) 0.02 Sodium 142 Potassium 3.7 Chloride 106 Carbon Dioxide 30 Anion Gap 6 BUN 7 Creatinine 0.75 Est Cr Clr Drug Dosing 130.4 eGFR 106.57 BUN/Creatinine Ratio 9.3 L Glucose 115 H POC Glucose 105 H 119 H Lactate Calcium 8.3 L Magnesium Iron TIBC Unsaturated IBC Transferrin Transferrin % Sat Total Bilirubin 0.3 AST 16 ALT 21 Alkaline Phosphatase 57 Total Protein 6.1 Albumin 3.2 L Globulin 2.9 Albumin/Globulin Ratio 1.1 Lipase Prostate Specific Ag Free PSA % Free PSA Vitamin B12 Folate Urine Color Urine Appearance Urine pH Ur Specific Cody Urine Protein Urine Glucose (UA) Urine Ketones Urine Blood Urine Nitrite Urine Bilirubin Urine Urobilinogen Ur Leukocyte Esterase Urine WBC (Auto) Urine RBC (Auto) U Hyaline Cast (Auto) U Epithel Cells (Auto) Urine Bacteria (Auto) Urine Comment Adenovirus (PCR) B. pertussis DNA (PCR) B.parapertussis DNA PCR C. pneumoniae DNA (PCR) Coronavirus OC43 (PCR) Coronavirus HKU1 (PCR) Coronavirus 229E (PCR) SARS-CoV-2 (PCR) Coronavirus NL63 (PCR) Human Metapneumovir PCR Influenza Type A (PCR) Influenza Type B (PCR) M. pneumoniae (PCR) Parainfluenza 1 (PCR) Parainfluenza 2 (PCR) Parainfluenza 3 (PCR) Parainfluenza 4 (PCR) RSV (PCR) Entero/Rhino (PCR) 01/02/25 01/02/25 05:31 07:24 WBC RBC Hgb Hct MCV MCH MCHC RDW Std Deviation RDW Coeff of Braeden Plt Count MPV Immature Gran % (Auto) Neut % (Auto) Lymph % (Auto) Henderson % (Auto) Eos % (Auto) Baso % (Auto) Neut # (Auto) Lymph # (Auto) Henderson # (Auto) Eos # (Auto) Baso # (Auto) Immature Gran # (Auto) Sodium Potassium Chloride Carbon Dioxide Anion Gap BUN Creatinine Est Cr Clr Drug Dosing eGFR BUN/Creatinine Ratio Glucose POC Glucose 108 H Lactate Calcium Magnesium Iron TIBC Unsaturated IBC Transferrin Transferrin % Sat Total Bilirubin AST ALT Alkaline Phosphatase Total Protein Albumin Globulin Albumin/Globulin Ratio Lipase Prostate Specific Ag 18.551 H Free PSA 3.28 H % Free PSA 17.7 Vitamin B12 Folate Urine Color Urine Appearance Urine pH Ur Specific Cody Urine Protein Urine Glucose (UA) Urine Ketones Urine Blood Urine Nitrite Urine Bilirubin Urine Urobilinogen Ur Leukocyte Esterase Urine WBC (Auto) Urine RBC (Auto) U Hyaline Cast (Auto) U Epithel Cells (Auto) Urine Bacteria (Auto) Urine Comment Adenovirus (PCR) B. pertussis DNA (PCR) B.parapertussis DNA PCR C. pneumoniae DNA (PCR) Coronavirus OC43 (PCR) Coronavirus HKU1 (PCR) Coronavirus 229E (PCR) SARS-CoV-2 (PCR) Coronavirus NL63 (PCR) Human Metapneumovir PCR Influenza Type A (PCR) Influenza Type B (PCR) M. pneumoniae (PCR) Parainfluenza 1 (PCR) Parainfluenza 2 (PCR) Parainfluenza 3 (PCR) Parainfluenza 4 (PCR) RSV (PCR) Entero/Rhino (PCR) Medications Administered Current Inpatient Medications Acetaminophen (Acetaminophen 325 Mg Tab) 650 mg PO Q4H PRN PRN Reason: pain/fever Stop: 01/31/25 03:37 Last Admin: 01/01/25 20:19 Dose: 650 mg Cyanocobalamin (Cyanocobalamin 1000 Mcg/Ml Vial) 1,000 mcg IM QAM ASHLEY Stop: 01/31/25 09:59 Last Admin: 01/02/25 09:20 Dose: 1,000 mcg Dextrose (Dextrose 50% 50 Ml Syringe) 25 - 50 ml IV UD PRN; Protocol PRN Reason: Hypoglycemia Protocol Stop: 01/31/25 03:37 Glucagon (Glucagon For Inj 1 Mg Vial) 1 mg SQ UD PRN; Protocol PRN Reason: Hypoglycemia Protocol Stop: 01/31/25 03:37 Glucose (Glucose 40% Gel 15 Gm Tube) 15 - 30 gm PO UD PRN; Protocol PRN Reason: Hypoglycemia Protocol Stop: 01/31/25 03:37 Glucose (Glucose 10 Tab/Tube) 4 - 8 tab PO UD PRN; Protocol PRN Reason: Hypoglycemia Protocol Stop: 01/31/25 03:37 Parenteral Electrolytes (Plasma-Lyte A Ph 7.4) 1,000 mls @ 125 mls/hr IV .Q8H ASHLEY Stop: 01/04/25 02:44 Last Admin: 01/02/25 05:37 Dose: 125 mls/hr Acetaminophen (Ofirmev) 1,000 mg in 100 mls @ 400 mls/hr IV Q8H PRN PRN Reason: Fever/pain Stop: 01/04/25 02:35 Ceftriaxone Sodium (Rocephin) 2,000 mg in 50 mls @ 100 mls/hr IV Q24H ASHLEY Stop: 01/12/25 02:59 Last Infusion: 01/02/25 04:22 Dose: Infused Insulin Aspart (Insulin Aspart Per Unit Charge) 0 units SC ACHS ASHLEY Stop: 01/31/25 07:29 Last Admin: 01/02/25 08:40 Dose: Not Given Lactobacillus Acidophilus (Advanced Probiotic 625 Mg Capsule) 1,250 mg PO DAILY ASHLEY Stop: 01/31/25 16:29 Last Admin: 01/02/25 09:20 Dose: 1,250 mg Melatonin (Melatonin 3 Mg Tab) 3 mg PO HS PRN PRN Reason: Insomnia Stop: 01/31/25 03:37 Miscellaneous (Carbohydrates For Hypoglycemia ) 15 - 30 gm PO UD PRN PRN Reason: Hypoglycemia Protocol Stop: 01/31/25 03:37 Morphine Sulfate (Morphine Sulfate 2 Mg/Ml Carp) 1 mg IV Q3H PRN PRN Reason: Pain (1,2,3,4,5) & Pre PT Stop: 01/15/25 02:35 Morphine Sulfate (Morphine Sulfate 2 Mg/Ml Carp) 2 mg IV Q3H PRN PRN Reason: Pain (6,7,8,9,10) Stop: 01/15/25 02:35 Ondansetron HCl (Ondansetron Inj 2 Mg/Ml 2 Ml Vial) 4 mg IV Q6H PRN PRN Reason: Nausea Stop: 01/31/25 03:37 Simvastatin (Simvastatin 20 Mg Tab) 20 mg PO HS [facility] Stop: 01/31/25 20:59 Last Admin: 01/01/25 20:13 Dose: 20 mg Tamsulosin HCl (Tamsulosin Hcl 0.4 Mg Cap) 0.4 mg PO QAM [facility] Stop: 01/31/25 08:59 Last Admin: 01/02/25 09:20 Dose: 0.4 mg PG Care Time/CCT Total # of Minutes Spent Total Time Spent with Patient: Total time spent is greater than 50% in coordination of care (as documented) at patient's floor/unit and/or counseling patient: Coding Level of Care Code 40362 SUB INP/OBS CARE 05/22MIN Diagnoses Fever R50.9 Hydronephrosis concurrent with and due to calculi of kidney and ureter N13.2 Hypokalemia E87.6 Hypomagnesemia E83.42 Time Spent (min) 25
--- NOTE | 2025-01-02 11:29 | CT Scan Report ---
CT OF THE CHEST WITHOUT IV CONTRAST CLINICAL HISTORY: Fever. COMPARISON STUDY: Chest radiograph December 30, 2024. CT DOSE: 977.8 mGy.cm TECHNIQUE: Axial images of the chest were obtained without IV contrast. Images were reviewed in the axial, sagittal, and coronal planes. IV contrast was not administered for this examination. Automat ed exposure control was utilized for the study. A dose lowering technique was utilized adhering to t he principles of ALARA. FINDINGS: No enlarged axillary, mediastinal or hilar lymph nodes are present. Size of the heart is a t the upper limits of normal. There are trace bilateral pleural effusions. There is no pneumothorax. There is no consolidation to suggest pneumonia. Mild subpleural dependent opacities represent atelect asis. There are no suspicious pulmonary nodules. Mild right hydronephrosis is decreased when compared to abdominal CT of December 30, 2024. IMPRESSION: 1. No consolidation to suggest pneumonia. 2. Trace bilateral pleural effusions. 3. Mild right hydronephrosis, decreased since CT of December 30, 2024. ACT 112: Negative or not required by law. Electronically signed by: Denton Matias M.D. 01/02/2025 11:28 AM
[2025-01-03 00:09] VITALS: TEMP 98.1
[2025-01-03 07:58] VITALS: BP 143/85; O2SAT 95
[2025-01-03] MEDS: TAMSULOSIN HCL 0.4 MG CAP PO SCH (08:12)
[2025-01-03] MEDS ORDERED: AMPICILLIN 250 MG in SODIUM CHLORIDE 0.9% 50 ML IV SCH (09:00)
[2025-01-03] MEDS: AMPICILLIN 2,000 MG in SODIUM CHLOR 0.9% MINI-B 100 ML IV SCH (09:35)
--- NOTE | 2025-01-03 11:26 | Urology Progress Note ---
<Statement entered by Robinson Orlando MD - 01/03/25 11:46> Agree with assessment and plan as written. Date of Service January 03, 2025 Assessment & Plan (1) Complicated UTI (urinary tract infection): Plan: 54M admitted for post-procedural UTI and failed outpatient oral antibiotics. - Afebrile, hemodynamically stable. - No new labs today, creatinine and WBC within normal limits on 01/02. - Clinically improving with ceftriaxone. - Urine culture 12/30 with Enterococcus. - Blood cultures 12/30 and 11/30 with no growth to date. - Urine culture on 01/01 with no growth. - CT reviewed - no acute intervention indicated at this time. - Continue with antibiotics per culture, transition to oral antibiotics upon discharge. - Can discharge from standpoint when medically stable. - PSA noted, can follow-up as outpatient. - Keep outpatient urology follow-up as scheduled. - will sign off, please contact her service with any additional questions or concerns. Admission and Anticipated Discharge Date Admission Date: January 02, 2025 Subjective Patient seen and examined at bedside this am. He is awake and sitting up at the side of the bed. Denies flank pain. No fever or chills. Review of Systems Constitutional: as per Subjective / HPI Genitourinary: + as per Subjective / HPI Physical Exam Constitutional: well developed and well nourished; no acute distress Respiratory: normal respiratory effort; no respiratory distress and no labored breathing Gastrointestinal (Abdomen): Inspection/Auscultation: abdomen normal to inspection Musculoskeletal: Head/Neck/Chest: normocephalic Neurologic: moves all extremities and awake Psychiatric: Orientation: alert and oriented x 3 Results & Data Vital Signs (Past 12 Hours) Vital Signs Temp Pulse Resp BP Pulse Ox O2 Del Method 01/03/25 07:55 36.7 C 73 18 143/85 H 95 Room Air 01/03/25 00:09 36.7 C 89 16 134/80 97 Room Air PG Care Time/CCT Total # of Minutes Spent Total Time Spent with Patient: Total time spent is greater than 50% in coordination of care (as documented) at patient's floor/unit and/or counseling patient: Coding Level of Care Code 90610 SUB INP/OBS CARE 05/22MIN Diagnoses Complicated UTI (urinary tract infection) N39.0
--- NOTE | 2025-01-03 11:38 | Electrocardiogram Report ---
Test Reason : Blood Pressure : */* mmHG Vent. Rate : 89 BPM Atrial Rate : 89 BPM P-R Int : 154 ms QRS Dur : 92 ms QT Int : 378 ms P-R-T Axes : -5 23 -6 degrees QTcB Int : 459 ms Normal sinus rhythm Normal ECG When compared with ECG of 30-Dec-2024 17:18, No significant change was found Confirmed by Melquiades Piña ([id number]) on 01/03/2025 11:38:14 AM Referred By: REFERRED SELF Confirmed By: Melquiades Piña
[2025-01-03 15:06] VITALS: RESP 14
[2025-01-03 15:11] VITALS: PULSE 70
--- NOTE | 2025-01-03 18:39 | Discharge Summary ---
Discharge Summary Date of Service January 03, 2025 Principal Dx & Hospital Course #1 = Principal Diagnosis (1) Fever: patient is a 54 yo male wti renal calculi s/p stent, BPH, diabetes on 12/01/2024, has 6mm ruight ureteral calculus hydronephrosis and insertion of stent by DR. Black on 12/13, s/p ureteral dilatation, laser destruction of stones, and basket and grapser extraction of stones and stent exchange by Dr. Jakob Tejada he was prescribed oral antibiotics but came to ED on 12/31/2024 with persistent fever, he's was found to has pyelonephritis and complicated UTI by CT scan his CT abdomen found 3mm calculus in the proximal right ureter and his flomax was increased from 0.4mg to 0.8mg. he' also found to has enlarge prostate with PSA anigen 18.551; feree PSA of 3.28 patient and his was informed about the need for urology follow up and prostate exam risk of cancer and explained he's was on ceftriaxone, cefepime however, his urine culture grow enteroccous infection which is resistent to doxycycline he's was prescribed ciprofloxacin and macrobid his blood culture remained negative. communicated with urology, which cleared him for discharge (2) Hydronephrosis concurrent with and due to calculi of kidney and ureter: (3) Hypokalemia: (4) Hypomagnesemia: Plan 54-year-old male PMHx DM, renal calculi s/p stent, MATEO, BPH, and prior renal calculi who presents for onset of fever. ED course without evidence of sepsis, no leukocytosis, and UA ? starting infection. He does have slight electrolyte abnormalities (K and Mg). CTAP from prior evaluation revealed hydronephrosis with calculi on R side. Pt to be admitted for concerns of fever in setting of known stone. Hemodynamically stable at time of admission. his repeat CT abdomen found 3mm calculus in the proximal right ureter. blood culture negative recheck urine analysis on 01/01/2025, started on ceftriaxone. overall plan continue to monitor for fever f/u on urine culture and blood culture check PSA tomorrow if he anemia, will benefit from f/u with GI for EGD and repeat colonoscopy #Fevers/R hydronephrosis with calculus in the past, he grow enteroccous c/w ceftriaxone. Follows with urology; S/p laser lithotripsy to R kidney with R ureteral stent on 12/13/2024 and removal on 12/27/2024. Evaluated in ED 12/30/2024 and started on cefdinir. Ongoing fevers despite oral antibiotics. Pt is overall stable at time of admission with no evidence of sepsis and is hemodynamically stable. - CBC without leukocytosis, H/H 11.7/35.1; CMP WNL Cr and BUN; lactate 1.6 - CBC, BMP am - UA LE/WBC/blood - pending prior cx - CTAP (12/30/2024) R hydronephrosis with 3mm calculus/fragment of proximal R ureter, no pyelonephritis -increased flomax dosage. - VS q4h -- notify provider of fever/tachycardia - IVF plasma-lyte @ 125 mL/hr - Zofran prn N/V - Acetaminophen prn fever/pain, morphine prn severe pain - Ceftriaxone IV x 1 given at admission - additional abx pending clinical course - communicated with urology; they are deferring acute intervention no rash noted; foot exam negative for cellulitis. elevaed PSA, notified urology, he will has close follow up b12 deficiency #Hypokalemia/Hypomagnesemia Asx at present. - K 3.3, Mg 1.4 - BMP, Mg am - Mag sulfate 4g IV first - KCl 20 mEq IV - EKG pending #Anemia last colonoscopy was 5 years ago Slightly decreased H/H from prior, no known bleeding per patient. - H/H 11.7/35.1, plt WNL - Trend CBC - Iron panel, vitamin B12, and folate pending - CTAP 12/30/2024 unremarkable for etiology #T2DM H/o T2DM. At home regimen includes metformin, Mounjaro. - Glucose on arrival 155; Most recent A1c 08/2024 @ 6.5% - SSI with target BSG range 110-150mg/dL, CF 30, carb ratio deferred - BSG q6h while npo - Adjust regimen as needed #Hypercholesterolemia- Simvastatin - continue #MATEO- CPAP Dispo: Admit, med/sx VTE Prophylaxis: SCDs This document was dictated utilizing [employer]. Please excuse any grammatical errors that may be secondary to use of this software. Notes For Next Care Provider bladder scan f/u on prostate exam and PSA level f/u with urology recommendation flomax dose increased from 0.4mg --> 0.8mg Admission HPI Per Admitting Provider 54-year-old male PMHx DM, hypercholesterolemia, MATEO, BPH, and prior renal calculi who presents for onset of fever. Pt was evaluated in ED 12/30/2024 for similar symptoms and sent home on oral antibiotics. Returning today for persistent fevers, highest 103.9 degrees Fahrenheit. Reports that these have been ongoing and worsening since his stent placement. 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 Pt does follow with urology. He had a laser lithotripsy to R kidney with R ureteral stent on 12/13/2024. Subsequently on 12/27/2024 the stent was removed. Pt has been taking cefdinir as prescribed. 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 No rigors. Overall denying chest pain, SOB, palpitations, abdominal pain, N/B/D/C, numbness/tingling, URI symptoms, present LUTS, weakness, or syncope. ED evaluation reveals CBC without leukocytosis, H/H 11.7/35.1; CMP K 3.3, glucose 155; Mag 1.4; lactate 1.6; UA blood, LE, WBCs; BioFire negative; CTAP completed 12/30/2024 revealed R hydronephrosis with 3 mm calculus/fragment in proximal R ureter (previously 6mm), no pyelonephritis, bilateral renal cysts, and an enlarged prostate.; Pt was provided with 1L NSS and Acetaminophen 1g IV in ED. Please see Dr. Hudson's attestation for adjustments/additions to treatment plan. Discharge Exam Constitutional VITALS: Reviewed. WEIGHT/BMI reviewed. GEN: Healthy appearing, well-developed, NAD. PSYCH: Good Judgment. AOx3. Normal memory, mood, and affect. HEENT -Head: NC/AT; -Mouth and throat: MMM. Normal gums, mucosa, palate,. Good dentition. NECK: Supple, with no masses. CV: RRR, no m/r/g. LUNGS: CTAB, no w/r/c. ABD: Soft, NT/ND, NBS, no masses or organomegaly. : N/A SKIN: multiple tattoo in the body . MSK: No deformities, Normal gait. EXT: No clubbing, cyanosis, or edema. NEURO: Ambulating with no limitations. Normal muscle strength and tone. No focal deficits. Discharge Plan Discharge Items Patient Disposition: Home - Self-Care Reason For Visit: FEVER, RENAL CALCULI, HYDRO Discharge Diagnosis: complicated UTI (enterococcus) ureteral stones pyleonephritis BPH Condition on Discharge: Fair Activity: Resume your previous activity Non-emergency contact: Primary Care Provider and Surgeon Call non-emergency contact if: your symptoms worsen and you have a fever Follow-up/Referrals: Driss Billingsley, [Primary Care Provider] - Diet: Regular Addtl Attending Provider Instructions: you will f/u with urologist and repeat urine analysis in 5-10 days you PSA is elevated and need f/u with urologist Pending Studies at Discharge: Yes Stand-Alone Forms: My [facility], Smoking Cessation Medications and DC Order Prescriptions: New ciprofloxacin HCl 750 mg tablet 750 mg PO BID 10 Days Qty: 20 0RF nitrofurantoin monohyd/m-cryst [Macrobid] 100 mg capsule 100 mg PO BID 7 Days Qty: 14 0RF Rx Instructions: must administer with a meal/food Continued (DME) OneTouch Ultra Test Strip See Rx Instructions .Route Qty: 100 3RF Rx Instructions: pt test once a day simvastatin 20 mg tablet 20 mg PO HS Qty: 90 3RF Rx Instructions: Refill request received from pharmacy metformin 1,000 mg tablet 1,000 mg PO BID Qty: 180 3RF acetaminophen [Tylenol Extra Strength] 500 mg tablet 500 mg PO UD PRN (Reason: aches and pains) sildenafil 50 mg tablet 50 mg PO UD PRN (Reason: Sexual Activity) Mounjaro 15 mg/0.5 mL pen injector 15 mg subcut WK Patient Comments: sundays Rx Instructions: SUNDAYS ibuprofen 600 mg Tablet 600 mg PO Q6 PRN (Reason: Pain) clotrimazole-betamethasone 1-0.05 % cream 1 applic topical HS Rx Instructions: Apply small/pea-sized amount topically before bed Changed tamsulosin 0.4 mg capsule 0.8 mg PO QAM 30 Days Qty: 90 3RF Discontinued doxycycline hyclate 100 mg capsule 100 mg PO BID 7 Days Qty: 14 0RF Rx Instructions: STARTED 12/29/24 FOR 7 DAYS cefdinir 300 mg capsule 300 mg PO BID 7 Days Qty: 14 0RF Rx Instructions: STARTED 12/30/24 FOR 7 DAYS Discharge Orders: Discharge Order (Routine); Ordered 01/03/25 Ordered By: Rosemarie Nair/Other Patient Handouts: Prostate-Specific Antigen (PSA), PSA Test, Urinary Tract Infections in Men Admission Data Admit Date/Time: 01/02/25 11:19 Attending Provider: Rosemarie Harrison Admit Provider: Ananya Hudson Primary Care Provider: Driss Billingsley Other Providers: Robinson Orlando; Ananya Hudson Other Interventions: Discharge Summary Assessment (RN) Last Done: 01/03/25 15:08 Hospital Stay Data Consultations 01/01/25 01:43 ED Decision to Admit Stat 01/01/25 03:38 Consult Urology Routine Diagnostic Imagining Performed 01/02/25 08:03 CT chest without contrast [CT chest diagnostic wo con] Routine 01/02/25 09:15 CT Abdomen and Pelvis [CT abd pelvis wo con] Urgent Pending Results Patient Have Any Pending Studies at Discharge: Yes Discharge Instructions Given to Patient (Per Discharging Provider) you will f/u with urologist and repeat urine analysis in 5-10 days you PSA is elevated and need f/u with urologist Total Time Total Time Spent Total Time Spent (In Minutes): 35 minutes Coding Level of Care Code 48223 IN/OBS DISCH 30 MIN/LESS Diagnoses Fever R50.9 Hydronephrosis concurrent with and due to calculi of kidney and ureter N13.2 Hypokalemia E87.6 Hypomagnesemia E83.42 Time Spent (min) 30
--- NOTE | 2025-01-04 10:07 | Coding Query ---
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 Please assist us with the question(s) below: Coding Question(s): There is documentation on the 01/02 Urology Progress Note of, "Complicated UTI (urinary tract infection): Plan: Currently afebrile 54M who seems to have post-procedural UTI and failed outpatient oral antibiotics. now improving with ceftriaxone", and documentation on the 01/03 Urology Progress Note of, " Complicated UTI (urinary tract infection): Plan: 54M admitted for post-procedural UTI and failed outpatient oral antibiotics". Please specify below, in your clinical opinion, regarding the Post-procedural UTI: (x ) Most likely is Postoperative Complication of infection ( ) Not a Postoperative Complication Physician's Response(s): While impossible to say with certainty that the urinary tract infection resulted from the procedure it is felt that the UTI is more likely to be related to the recent procedure and urinary tract instrumentation. Robinson Orlando MD Thank you Rni Pearl Principal Diagnosis: "that condition established after study, to be chiefly responsible for occasioning the admission of the patient to the hospital for care." Co-Existing Principal Diagnosis: "when two or more diagnoses equally meet the criteria for principal diagnosis as determined by the circumstances of admission, diagnostic work up, and/or therapy provided, and the Alphabetic Index, Tabular List, or another coding guideline does not provide sequencing direction, any one of the diagnoses may be sequenced first." "When the physician has documented what appears to be a current diagnosis in the body of the record, but has not included the diagnosis in the final diagnostic statement, the physician should be asked whether the diagnosis should be added." (Source Coding [facility] 2 QTR90. p3-4) [email or web address]
== END 2025-01-03 16:00 | disposition home or self-care (01) | DRG 863 ==
LOC: ED 22:21 → EDINP 22:21 → SUATTDRO 01-01 02:36 → 3E 01-01 08:31 → 3N 01-03 01:29